=== PATIENT | female | born 1940 | race Caucasian/White ===

== ENCOUNTER → 2017-11-19 10:21 | Outpatient (CLI) | payer MEDICARE, SELFPAY ==
--- NOTE | 2017-11-19 10:32 | RAD_ITS ---
STUDY: X-RAY - RIGHT SHOULDER REASON FOR EXAM: Female, 76 years old. Shoulder pain, replacement in 2016 TECHNIQUE: 4 view(s) of the shoulder. COMPARISON: Previous study of 08/05/2015 FINDINGS: Status post total right shoulder replacement changes are seen with implants appearing in good position. There is no evidence of implant loosening or new associated fracture or dislocation. There is a small amount of heterotopic bone medial to the proximal right humeral shaft. The bones are osteopenic. There are several old healed right rib fractures. The right lung apex is clear. RAD/Shoulder min 2 Views IMPRESSION: Status post total right shoulder replacement changes noted with implants appearing in good position. There is no evidence of implant loosening or new associated fracture or dislocation. There is a small amount of heterotopic bone medial to the proximal right humeral shaft. There is generalized osteopenia. There are old healed fractures of several right ribs. Electronically Signed: Sal Corral MD at 22:36 EST , Service support ,
== END ==
PROVIDERS: Family Provider Family Medicine; PCP Family Medicine; Visit Provider Family Medicine
DX: M25.511 Pain in right shoulder (principal)
CPT/HCPCS: 73030

== ENCOUNTER 2018-04-08 15:17 | Emergency (ER) | payer MEDICARE, SELFPAY ==
[2018-04-08 15:19] VITALS: BP 230/95; PULSE 87; RESP 16; TEMP 36.8; O2SAT 100; BMI 35.9
--- NOTE | 2018-04-08 15:32 | EKG12_ITS ---
Test Reason : WEAKNESS Blood Pressure : / mmHG Vent. Rate : 082 BPM Atrial Rate : 082 BPM P-R Int : 242 ms QRS Dur : 084 ms QT Int : 390 ms P-R-T Axes : 048 -21 133 degrees QTc Int : 455 ms Sinus rhythm with 1st degree A-V block T wave abnormality, consider lateral ischemia Abnormal ECG Confirmed by ABE RASMUSSEN, PEDRO ([id number]), book or script editor KEVIN STALLWORTH ([id number]) on 04/10/2018 2:29:11 PM Referred By: KATE Confirmed By:PEDRO FISH MD
--- NOTE | 2018-04-08 15:35 | RAD_ITS ---
STUDY: X-RAY CHEST REASON FOR EXAM: Female, 77 years old. Weakness, history of hypertension TECHNIQUE: Single AP portable view of the chest. COMPARISON: Prior study of 07/21/2015 FINDINGS: The lungs are clear and expanded. There is no demonstrated pleural abnormality. There is moderate cardiac enlargement. Normal mediastinum and sridhar. Normal visualized pulmonary arteries. There are calcified plaques of the aortic arch. There are diffuse degenerative changes of the visualized thoracic spine. 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 There is no demonstrated abnormality of the visualized soft tissue structures of the upper abdomen. RAD/Chest 1 View (Portable) IMPRESSION: 1. Moderate cardiomegaly. 2. Calcified plaques of the aortic arch. 3. Degenerative changes of the thoracic spine. 4. Status post total right shoulder replacement changes. This is new in the interval. Electronically Signed: Sal Corral MD at 16:49 EDT , Service support ,
--- NOTE | 2018-04-08 15:36 | ED.DCSUM_ITS ---
- ER Visit Summary Date of Service: 04/08/18 Chief Complaint: Weakness History of Present Illness: The patient is a 77 F who states that she came into town today the patient bills when she got home she felt that she was generally weak. No focal deficits. No chest pain. No shortness of breath. She states that she took her blood pressure and it was 222/96 and her blood sugars was 178. She does not know her medications. When we called over to her doctor's office they agreed to send him to us and they did state that she called in there today may mention she has not taken her medicines for several days. When I asked the patient about this she states now she has been taking them. When I asked again she states while she missed 2 doses. When I ask again she states she has missed several days worth. That was because she states she was very stressed. Physical Examination: 230/95 heart rate of 91 respirations are 16 pulse ox is 100% on room air patient is afebrile Gen: Well-nourished well-developed Head: Normocephalic atraumatic Eyes: Perrl EOMI ENT: TMs clear no rhinorrhea moist mucous membranes Neck: Supple no lymphadenopathy no JVD nontender CVS: Regular rate rhythm no murmurs normal S1-S2 Respiratory: No distress clear to auscultation bilaterally chest nontender Abdomen: Soft nontender nondistended normal bowel sounds no masses Back: Nontender Extremity: Nontender no edema Skin: Normal color no rash Neuro: alert orientated ?3 CN II-XII intact normal strength sensation reflexes gait cerebellar Psych: Normal affect normal mood Test Results: EKG sinus with first-degree block at a rate of 82. Hemoglobin 11.8. Creatinine 1.43. Troponin negative. Chest x-ray negative. Emergency Department Course and Treatment: I did not give the patient any additional blood pressure medications. Blood pressures down to 173/69 at 1500 hrs. The patient was ambulated and did well.. She will be discharged home. She was encouraged to be compliant with her medications Impression: 1. Hypertensive urgency secondary to medical noncompliance This note was generated with [employer] software. It may contain incorrect words, spelling, and punctuation that were not noted in review of the chart prior to signing ED Disposition - Plan for ED Patient: Disposition: Home or Assisted Living Chief Complaint: Weakness Instructions: Discharge Instructions: Taking Blood Pressure Medications Referrals: Moshe Matos MD [Primary Care Provider] - 3-5 Days if not improving
[2018-04-08 15:42] LABS: Absolute Lymphocyte Count 2.18 X10^3/ul (0.83-4.51); Basophil# 0.02 X10^3/uL; Basophil% 0.3 % (0-1); Eosinophil# 0.22 X10^3/uL; Eosinophils% 3.2 % (0-5); Hematocrit 37.1 % (37-47); Hemoglobin 11.8 g/dl (12.0-15.0); Lymphocyte # 2.18 X10^3/ul (4.0); Mean Corp Hgb Conc 31.8 g/gl (32-36); Mean Corpuscular Hgb 30.1 pg (27.0-32.0); Mean Corpuscular Volume 94.6 fL (81-99); Mean Platelet Vol. 11.3 fl (6.2-12.0); Monocyte# 0.39 X10^3/uL; Monocyte% 5.7 % (0-10); Neutrophil # 3.97 X10^3/uL (2.7-7.7); Neutrophil % 58.4 % (47-70); Platelet Count 172 K/mm3 (150-450); RBC Distribution Width CV 13.6 % (11.6-14.6); RBC Distribution Width SD 45.4 fl (35.1-43.9); Red Blood Count 3.92 M/mm3 (4.2-5.4); White Blood Count 6.8 K/mm3 (4.4-11.0)
[2018-04-08 15:44] LABS: POSITIVE COUNT NO; POSITIVE DIFFERENTIAL NO; POSITIVE MORPHOLOGY NO
[2018-04-08 16:03] LABS: Anion Gap 8 (5-15); BUN 15 mg/dL (7-18); BUN/Creat Ratio 10.5 RATIO (10-20); Calcium,Total 9.2 mg/dL (8.5-10.1); Chloride 108 mmol/L (98-107); Creatinine, Serum 1.43 mg/dL (0.55-1.02); EST Glomerular Filtration Rate 38 mL/min (>60); Est Glom Filt Rate - Afr Amer 46 mL/min (>60); Estimated Creatinine Clearance 30.12 ml/min; Glucose 119 mg/dL (74-106); Potassium 3.8 mmol/L (3.5-5.1); Sodium Level 143 mmol/L (136-145)
[2018-04-08 16:15] LABS: Mucous, Urine 0 SEEN /hpf (<or=2+); Red Blood Cells-Urine 0 SEEN /hpf (0-5)
[2018-04-08 16:33] LABS: Color, Urine Yellow (Yellow); Glucose, Dipstick Normal (Normal); Ketone-Dipstick Negative (Negative); Leukocyte Esterase-Dipstick 25 /ul (Negative); Nitrite-Dipstick Negative (Negative); Occult Blood-Urine 25 /ul (Negative); Protein-Dipstick 100 mg/dl (Negative); Urine Bilirubin Dipstick Negative (Negative); Urine Clarity Clear (Clear); Urine Urobilinogen 1 mg/dl (Normal)
[2018-04-08 16:42] LABS: Squamous Epithelial Cells - UA 5-10 SEEN /hpf (5-10); White Blood Cells 0-5 SEEN /hpf (0-5)
[2018-04-08 16:43] LABS: Bacteria 3+ /hpf (None Seen)
[2018-04-08 16:51] VITALS: BP 173/74; PULSE 80; RESP 15; O2SAT 100
[2018-04-08 18:01] VITALS: BP 175/71; PULSE 83; RESP 18; O2SAT 99
== END 2018-04-08 18:02 | disposition home or self-care (01) ==
PROVIDERS: Emergency Provider Emergency Medicine; Family Provider Family Medicine; PCP Family Medicine
DX: I16.0 Hypertensive urgency (principal); Z91.19 Patient's noncompliance with other medical treatment and regimen; E11.9 Type 2 diabetes mellitus without complications; E78.00 Pure hypercholesterolemia, unspecified; K21.9 Gastro-esophageal reflux disease without esophagitis; Z72.0 Tobacco use
CPT/HCPCS: 71045; 80048; 81001; 84484; 85025; 93005; 99285; A4216

== ENCOUNTER 2018-06-29 14:58 | Emergency (ER) | payer MEDICARE, SELFPAY ==
[2018-06-29 14:59] VITALS: BP 197/101; PULSE 87; RESP 18; TEMP 36.4; O2SAT 99; BMI 25.8
[2018-06-29 15:13] VITALS: BP 188/82; PULSE 80; RESP 14; O2SAT 98
--- NOTE | 2018-06-29 15:24 | ED.VISSUMM ---
- ER Visit Summary Date of Service: 06/29/18 Chief Complaint: High blood pressure History of Present Illness: The patient is a 77 F presenting with high blood pressure. Patient states she has a bracelet monitor that read elevated blood pressure. She called EMS. They checked her blood pressure and it was systolic of 200. They advised her to come to the emergency department. She is completely asymptomatic. She denies headache, chest pain, dizziness, blurred vision. She states she feels well. She states her blood sugar has also been running high. She checked it today and it was 160. Physical Examination: Vitals are stable. Blood pressure 188/82. patient is afebrile. Alert no acute distress. HEENT exam is unremarkable. Neck is supple. Lungs are clear and equal bilaterally. Heart is regular rate and rhythm. Abdomen is soft nontender nondistended. Extremities are unremarkable. Skin is warm and dry. No focal neurologic deficit. Remainder of exam is unremarkable. Emergency Department Course and Treatment: BGT is 164. Repeat blood pressure without treatment is 164/80. She remains asymptomatic in the emergency department. Patient is advised to follow-up with her primary care physician this week. She is advised to return to ED if she has any worsening complaints. Disposition: Discharge home Impression: Hypertension, established This note was generated with [employer] dictation software. It may contain incorrect words, spelling, and punctuation that were not noted in review of the chart prior to signing ED Disposition - Plan for ED Patient: Chief Complaint: Hypertension Instructions: ED HTN Established Referrals: Moshe Matos MD [Primary Care Provider] -
--- NOTE | 2018-06-29 15:27 | ED.DEP ---
ED Disposition - Plan for ED Patient: Chief Complaint: Hypertension Instructions: ED HTN Established Referrals: Moshe Matos MD [Primary Care Provider] -
[2018-06-29 15:38] VITALS: BP 164/80; PULSE 82; RESP 14; O2SAT 96
[2018-06-29 15:46] LABS: Bedside Glucose 164 mg/dL (70-110)
[2018-06-29 15:59] VITALS: BP 160/80; PULSE 80; RESP 14; O2SAT 98
== END 2018-06-29 16:00 | disposition home or self-care (01) ==
PROVIDERS: Emergency Provider Emergency Medicine; Family Provider Family Medicine; PCP Family Medicine
DX: I10 Essential (primary) hypertension (principal); E11.9 Type 2 diabetes mellitus without complications; E78.00 Pure hypercholesterolemia, unspecified; K21.9 Gastro-esophageal reflux disease without esophagitis; Z72.0 Tobacco use
CPT/HCPCS: 82962; 99283

== ENCOUNTER → 2018-09-02 11:28 | Outpatient (CLI) | payer MEDICARE, SELFPAY ==
[2018-09-02 15:55] LABS: Absolute Lymphocyte Count 2.17 X10^3/ul (0.83-4.51); Absolute Neutrophil Count 4.5 X10^3/uL (2.0-7.7); Basophil# 0.03 X10^3/uL; Basophil% 0.4 % (0-1); Eosinophil# 0.22 X10^3/uL; Hematocrit 36.5 % (37-47); Hemoglobin 11.4 g/dl (12.0-15.0); Lymphocyte # 2.17 X10^3/ul (4.0); Lymphocyte % 29.8 % (19-41); Mean Corp Hgb Conc 31.2 g/gl (32-36); Mean Corpuscular Hgb 29.4 pg (27.0-32.0); Mean Corpuscular Volume 94.1 fL (81-99); Mean Platelet Vol. 12.6 fl (6.2-12.0); Monocyte# 0.37 X10^3/uL; Monocyte% 5.1 % (0-10); Neutrophil # 4.47 X10^3/uL (2.7-7.7); Neutrophil % 61.3 % (47-70); Platelet Count 183 K/mm3 (150-450); RBC Distribution Width CV 14.4 % (11.6-14.6); RBC Distribution Width SD 47.3 fl (35.1-43.9); Red Blood Count 3.88 M/mm3 (4.2-5.4); White Blood Count 7.3 K/mm3 (4.4-11.0)
[2018-09-02 16:01] LABS: POSITIVE COUNT NO; POSITIVE DIFFERENTIAL NO; POSITIVE MORPHOLOGY NO
[2018-09-02 16:09] LABS: Iron 43 ug/dL (50-170)
--- OUTSIDE RECORDS SUMMARY | 2018-10-15 03:10 | XMS RPT_ITS ---
:1940 External Reference #:[id number] Author Organization OH[facility] Care Team Providers Name Role Phone KORI ANDERSON Referring Unavailable MARY JACOB (PT) Attending Unavailable MOSHE MATOS Referring Unavailable MARY JACOB (PT) Attending Unavailable MOSHE MATOS Referring Unavailable MARY JACOB (PT) Attending Unavailable MOSHE MATOS Referring Unavailable MARY JACOB (PT) Attending Unavailable MOSHE MATOS Referring Unavailable MARY JACOB (PT) Attending Unavailable MOSHE MATOS Referring Unavailable MOSHE MATOS Referring Unavailable MARY JACOB (PT) Attending Unavailable MOSHE MATOS Referring Unavailable Moshe Matos Attending Unavailable Moshe Matos Referring Unavailable Moshe Matos Primary Care Unavailable Moshe Matos Attending Unavailable Moshe Matos Primary Care Unavailable Moshe Matos Primary Care Unavailable Merna Bravo Attending Unavailable Moshe Matos Primary Care Unavailable Wang Mccoy Attending Unavailable Moshe Matos Attending Unavailable Moshe Matos Referring Unavailable Moshe Matos Primary Care Unavailable PROBLEMS PROBLEMS DATE TYPE CONDITION / CODE ATTENDING STATUS SOURCE 09/19/2018 Unknown D64.9 - Anemia, Moshe Matos Active [place] unspecified / Community D64.9(ICD-10) Hospital Repository 09/19/2018 Unknown R03.0 - Elevated [place], Active [place] blood-pressure Merna [facility], without Hospital diagnosis of Repository hypertension / R03.0(ICD-10) 09/19/2018 Unknown R53.1 - Weakness / [place] Active [place] R53.1(ICD-10) [facility] Repository 09/19/2018 Unknown M25.511 - Pain in Moshe Matos Active [place] right shoulder / Community M25.511(ICD-10) Hospital Repository 10/11/2017 Active Pleurodynia / NA Active [facility] R07.81(ICD-10) [facility] PROCEDURES PROCEDURES No Procedure Records FoundRESULTS RESULTS CBC W/DIFF, AUTOMATED Collected: 09/02/2018 Status: F Source: [place] 11:29 AM [facility] HOSPITAL REPOSITORY TYPE CODE TESTS RESULT OUT OF RANGE REFERENCE UNITS LAB L100.1000 4.4-11.0 K/mm3 Normal WBC 7.3 LAB L100.1200 4.2-5.4 M/mm3 Low RBC 3.88 LAB L100.1300 12.0-15.0 g/dl Low HGB 11.4 LAB L100.1400 37-47 % Low HCT 36.5 LAB L100.1500 81-99 fL Normal MCV 94.1 LAB L100.1600 27.0-32.0 pg Normal MCH 29.4 LAB L100.1700 32-36 g/gl Low MCHC 31.2 LAB L100.1810 11.6-14.6 % Normal RDW CV 14.4 LAB L100.1820 35.1-43.9 fl High RDW SD 47.3 LAB L100.1900 150-450 K/mm3 Normal PLT 183 LAB L100.2000 6.2-12.0 fl High MPV 12.6 LAB L100.2100 47-70 % Normal NEUT% 61.3 LAB L100.2200 19-41 % Normal LY% 29.8 LAB L100.2300 0-10 % Normal MONO% 5.1 LAB L100.2400 0-5 % Normal EO% 3.0 LAB L100.2500 0-1 % Normal BASO% 0.4 LAB L100.2550 0.0-0.9 % Normal IM GRAN % 0.400 Result Comment: IG% - Immature Granulocytes (promyelocytes, myelocytes and metamyelocytes) > 1% indicates that a LEFT SHIFT is Present. LAB L100.2620 2.0-7.7 X10 3/uL Normal Absolute Neut 4.5 LAB L100.2720 0.83-4.51 X10 3/ul Normal Absolute Lymph 2.17 Performed By: #### L100.0100 #### [facility] [address] [facility] [place], [address] IRON Collected: 09/02/2018 Status: F Source: [place] 11:29 AM [facility] REPOSITORY TYPE CODE TESTS RESULT OUT OF RANGE REFERENCE UNITS LAB L503.6150 50-170 ug/dL Low IRON 43 Performed By: #### L503.6150 #### [facility] [address] [facility] [place], [address] EMERGENCY DEPARTMENT Observed: 06/29/2018 Status: F Source: [place] SUMMARY 4:31 PM [facility] REPOSITORY [facility] Medical Records Department [address] [place] [address] Emergency Department Summary 06/29/18 1524 MR#: [id number] Acct: [id number] Name: DALIA MUSE Rep #: [id number] : 1940 77 From: Merna Bravo MD PCP: Moshe Matos MD Status: DEP ER - ER Visit Summary Date of Service: 06/29/18 Chief Complaint: High blood pressure History of Present Illness: The patient is a 77 F presenting with high blood pressure. Patient states she has a bracelet monitor that read elevated blood pressure. She called EMS. They checked her blood pressure and it was systolic of 200. They advised her to come to the emergency department. She is completely asymptomatic. She denies headache, chest pain, dizziness, blurred vision. She states she feels well. She states her blood sugar has also been running high. She checked it today and it was 160. Physical Examination: Vitals are stable. Blood pressure 188/82. patient is afebrile. Alert no acute distress. HEENT exam is unremarkable. Neck is supple. Lungs are clear and equal bilaterally. Heart is regular rate and rhythm. Abdomen is soft nontender nondistended. Extremities are unremarkable. Skin is warm and dry. No focal neurologic deficit. Remainder of exam is unremarkable. Emergency Department Course and Treatment: BGT is 164. Repeat blood pressure without treatment is 164/80. She remains asymptomatic in the emergency department. Patient is advised to follow-up with her primary care physician this week. She is advised to return to ED if she has any worsening complaints. Disposition: Discharge home Impression: Hypertension, established This note was generated with [employer] dictation software. It may contain incorrect words, spelling, and punctuation that were not noted in review of the chart prior to signing ED Disposition - Plan for ED Patient: Chief Complaint: Hypertension Instructions: ED HTN Established Referrals: Moshe Matos MD [Primary Care Provider] - What to do if you have Problems For any increased pain, shortness of breath, bleeding, nausea or vomiting, chest pain, or any unexpected problems, contact your Primary Care Provider. Call [facility] ([phone]) or report to the closest Emergency Room. Call 911 if necessary. 06/29/18 1631 <Electronically signed by Merna Bravo MD> Date Merna Bravo MD Cosigner Signature (If Indicated): Date CC: Moshe Matos MD BEDSIDE GLUCOSE Collected: 06/29/2018 Status: F Source: [place] 3:36 PM [facility] REPOSITORY TYPE CODE TESTS RESULT OUT OF REFERENCE UNITS RANGE LAB L501.080 70-110 mg/dL High BEDSIDE GLU 164 Result Comment: MANAGEMENT OF PATIENT CARE PER NURSING PROTOCOL Performed By: #### L501.080 #### [facility] Point of Care [address] [place] [address] DISCHARGE INSTRUCTION Observed: 06/29/2018 Status: F Source: [place] 3:27 PM [facility] REPOSITORY [facility] Medical Records Department [address] [place] [address] Discharge Instruction 06/29/18 1527 MR#: [id number] Acct: [id number] Name: DALIA MUSE Rep #: [id number] : 1940 77 From: Merna Bravo MD PCP: Moshe Matos MD Status: PRE ER ED Disposition - Plan for ED Patient: Chief Complaint: Hypertension Instructions: ED HTN Established Referrals: Moshe Matos MD [Primary Care Provider] - What to do if you have Problems For any increased pain, shortness of breath, bleeding, nausea or vomiting, chest pain, or any unexpected problems, contact your Primary Care Provider. Call [facility] ([phone]) or report to the closest Emergency Room. Call 911 if necessary. 06/29/18 1527 <Electronically signed by Merna Bravo MD> Date Merna Bravo MD Cosigner Signature (If Indicated): Date CC: Moshe Matos MD 12 LEAD ELECTROCARDIOGRAM Observed: 04/10/2018 Status: F Source: [place] 2:29 PM [facility] REPOSITORY [facility] Cardiovascular Services [address] [place] [address] 12 Lead EKG 04/08/18 1552 MR#: [id number] Acct: [id number] Name: DALIA MUSE Rep #: [id number] : 1940 77 From: Johnny Michelle MD Attending Dr: Status: DEP ER Ordering Dr: Wang Mccoy DO Date: 04/08/18 Location: ED Sex: F C Admitted: Test Reason : WEAKNESS Blood Pressure : / mmHG Vent. Rate : 082 BPM Atrial Rate : 082 BPM P-R Int : 242 ms QRS Dur : 084 ms QT Int : 390 ms P-R-T Axes : 048 -21 133 degrees QTc Int : 455 ms Sinus rhythm with 1st degree A-V block T wave abnormality, consider lateral ischemia Abnormal ECG Confirmed by ABE MD, JOHNNY ([id number]), editorial cartoonist KEVIN STALLWORTH ([id number]) on 04/10/2018 2:29:11 PM Referred By: KATE Confirmed By:JOHNNY MICHELLE MD 04/10/18 1429 Date Johnny Michelle MD CC: Wang Mccoy DO; Moshe Matos MD Signed EMERGENCY DEPARTMENT Observed: 04/08/2018 Status: F Source: [place] SUMMARY 11:36 PM [facility] REPOSITORY [facility] Medical Records Department [address] [place] [address] Emergency Department Summary 04/08/18 1532 MR#: [id number] Acct: [id number] Name: DALIA MUSE Rep #: [id number] : 1940 77 From: Wang Mccoy DO PCP: Moshe Matos MD Status: DEP ER - ER Visit Summary Date of Service: 04/08/18 Chief Complaint: Weakness History of Present Illness: The patient is a 77 F who states that she came into town today the patient bills when she got home she felt that she was generally weak. No focal deficits. No chest pain. No shortness of breath. She states that she took her blood pressure and it was 222/96 and her blood sugars was 178. She does not know her medications. When we called over to her doctor's office they agreed to send him to us and they did state that she called in there today may mention she has not taken her medicines for several days. When I asked the patient about this she states now she has been taking them. When I asked again she states while she missed 2 doses. When I ask again she states she has missed several days worth. That was because she states she was very stressed. Physical Examination: 230/95 heart rate of 91 respirations are 16 pulse ox is 100% on room air patient is afebrile Gen: Well-nourished well-developed Head: Normocephalic atraumatic Eyes: Perrl EOMI ENT: TMs clear no rhinorrhea moist mucous membranes Neck: Supple no lymphadenopathy no JVD nontender CVS: Regular rate rhythm no murmurs normal S1-S2 Respiratory: No distress clear to auscultation bilaterally chest nontender Abdomen: Soft nontender nondistended normal bowel sounds no masses Back: Nontender Extremity: Nontender no edema Skin: Normal color no rash Neuro: alert orientated 3 CN II-XII intact normal strength sensation reflexes gait cerebellar Psych: Normal affect normal mood Test Results: EKG sinus with first-degree block at a rate of 82. Hemoglobin 11.8. Creatinine 1.43. Troponin negative. Chest x-ray negative. Emergency Department Course and Treatment: I did not give the patient any additional blood pressure medications. Blood pressures down to 173/69 at 1500 hrs. The patient was ambulated and did well.. She will be discharged home. She was encouraged to be compliant with her medications Impression: 1. Hypertensive urgency secondary to medical noncompliance This note was generated with [employer] software. It may contain incorrect words, spelling, and punctuation that were not noted in review of the chart prior to signing ED Disposition - Plan for ED Patient: Disposition: Home or Assisted Living Chief Complaint: Weakness Instructions: Discharge Instructions: Taking Blood Pressure Medications Referrals: Moshe Matos MD [Primary Care Provider] - 3-5 Days if not improving What to do if you have Problems For any increased pain, shortness of breath, bleeding, nausea or vomiting, chest pain, or any unexpected problems, contact your Primary Care Provider. Call [facility] ([phone]) or report to the closest Emergency Room. Call 911 if necessary. 04/08/18 2336 <Electronically signed by Wang Mccoy DO> Date Wang Mccoy DO Cosigner Signature (If Indicated): Date CC: Moshe Matos MD URINALYSIS, COMPLETE Collected: 04/08/2018 Status: F Source: [place] 3:55 PM [facility] REPOSITORY Order Comment: Order Date: 04/08/18 Has pt arrived? Y How was Urine Obtained? CLEAN CATCH TYPE CODE TESTS RESULT OUT OF RANGE REFERENCE UNITS LAB L400.3000 Yellow COLOR Normal Yellow LAB L400.3050 Clear Normal CLARITY Clear LAB L400.3200 Normal mg/dl Normal GLUCOSE, UR Normal LAB L400.3300 Negative mg/dL Normal BILIRUBIN URINE Negative LAB L400.3400 Negative mg/dl Normal KETONE UR Negative LAB L400.3465 1.002-1.030 Normal SP.GR. DIPSTX 1.020 LAB L400.3550 5.0 - 8.0 pH UR Normal 6.0 LAB L400.3600 Negative mg/dl High PROT DIPSTX 100 LAB L400.3700 Normal mg/dl High 1 UROBILI LAB L400.3750 Negative Normal NITRITE UR Negative LAB L400.3780 Negative /ul High 25 OCCULT BLOOD-UR LAB L400.3800 Negative /ul High LEUK 25 ESTERASE LAB L400.4050 0-5 /hpf WBC Normal 0-5 SEEN LAB L400.4100 0-5 /hpf 0 Normal RBC-UA SEEN LAB L400.4150 5-10 /hpf SQUAM Normal EPI 5-10 SEEN LAB L400.4300 None Seen /hpf 3+ Normal BACTERIA LAB L400.4350 <or=2+ /hpf 0 Normal MUCUS, URINE SEEN Performed By: #### L400.0001 #### [facility] [address] [facility] [place], [address] CHEST 1 VIEW Observed: 04/08/2018 Status: F Source: [place] (PORTABLE) 3:33 PM [facility] REPOSITORY [facility] Imaging Services [address] [place] [address] Chest 1 View (Portable) MR#: [id number] Acct: [id number] Name: DALIA MUSE Rep #: [id number] : 1940 F 77 From: Sal Corral MD PCP: Moshe Matos MD Status: REG ER Study: Chest 1 View (Portable) Date of Exam: 04/08/18 Exam# [id number] Ordering Dr: Wang Mccoy DO STUDY: X-RAY CHEST REASON FOR EXAM: Female, 77 years old. Weakness, history of hypertension TECHNIQUE: Single AP portable view of the chest. COMPARISON: Prior study of 07/21/2015 FINDINGS: The lungs are clear and expanded. There is no demonstrated pleural abnormality. There is moderate cardiac enlargement. Normal mediastinum and sridhar. Normal visualized pulmonary arteries. There are calcified plaques of the aortic arch. There are diffuse degenerative changes of the visualized thoracic spine. 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 There is no demonstrated abnormality of the visualized soft tissue structures of the upper abdomen. RAD/Chest 1 View (Portable) IMPRESSION: 1. Moderate cardiomegaly. 2. Calcified plaques of the aortic arch. 3. Degenerative changes of the thoracic spine. 4. Status post total right shoulder replacement changes. This is new in the interval. Electronically Signed: Sal Corral MD at 16:49 EDT , Service support , CC: Wang Mccoy DO; Moshe Matos MD Rn Invasive: Signed CBC W/DIFF, AUTOMATED Collected: 04/08/2018 Status: F Source: [place] 3:30 PM [facility] REPOSITORY TYPE CODE TESTS RESULT OUT OF RANGE REFERENCE UNITS LAB L100.1000 4.4-11.0 K/mm3 Normal WBC 6.8 LAB L100.1200 4.2-5.4 M/mm3 Low RBC 3.92 LAB L100.1300 12.0-15.0 g/dl Low HGB 11.8 LAB L100.1400 37-47 % Normal HCT 37.1 LAB L100.1500 81-99 fL Normal MCV 94.6 LAB L100.1600 27.0-32.0 pg Normal MCH 30.1 LAB L100.1700 32-36 g/gl Low MCHC 31.8 LAB L100.1810 11.6-14.6 % Normal RDW CV 13.6 LAB L100.1820 35.1-43.9 fl High RDW SD 45.4 LAB L100.1900 150-450 K/mm3 Normal PLT 172 LAB L100.2000 6.2-12.0 fl Normal MPV 11.3 LAB L100.2100 47-70 % Normal NEUT% 58.4 LAB L100.2200 19-41 % Normal LY% 32.0 LAB L100.2300 0-10 % Normal MONO% 5.7 LAB L100.2400 0-5 % Normal EO% 3.2 LAB L100.2500 0-1 % Normal BASO% 0.3 LAB L100.2550 0.0-0.9 % Normal IM GRAN % 0.400 Result Comment: IG% - Immature Granulocytes (promyelocytes, myelocytes and metamyelocytes) > 1% indicates that a LEFT SHIFT is Present. LAB L100.2620 2.0-7.7 X10 3/uL Normal Absolute Neut 4.0 LAB L100.2720 0.83-4.51 X10 3/ul Normal Absolute Lymph 2.18 Performed By: #### L100.0100 #### [facility] [address] [place], [place], [address] BASIC METABOLIC Collected: 04/08/2018 Status: F Source: [place] PROFILE (BMP) 3:30 PM [facility] REPOSITORY TYPE CODE TESTS RESULT OUT OF RANGE REFERENCE UNITS LAB L501.0100 74-106 mg/dL High GLU 119 Result Comment: Fasting Glucose result from 100 to 125 mg/dL suggests IMPAIRED HOMEOSTASIS per A.D.A. criteria. Please note revised GLUCOSE reference range effective 2017. LAB L501.1000 7-18 mg/dL Normal BUN 15 LAB L501.1100 0.55-1.02 mg/dL High CREAT,SERUM 1.43 Result Comment: The validity of the calculated GFR AND GFRAA in patients over 70 years has not been determined. Clinical correlation is essential. LAB L501.1110 >60 mL/min Low EST GFR 38 Result Comment: Non- GFR Calc LAB L501.1115 >60 mL/min Low EST GFR - AA 46 Result Comment: GFR Calc LAB L501.1255 ml/min Normal Estimated CRCL 30.12 LAB L501.1300 10-20 RATIO Normal BUN/CRE 10.5 LAB L501.2200 8.5-10 mg/dL Normal .1 CA 9.2 LAB L501.5300 136-14 mmol/L Normal 5 NA 143 LAB L501.5600 3.5-5. mmol/L Normal 1 K 3.8 LAB L501.5900 98-107 mmol/L High CL 108 LAB L501.6100 21.0-3 mmol/L Normal 2.0 CO2 27.0 LAB L501.6200 5-15 Normal GAP 8 Performed By: #### L500.2500, L501.4010 #### [facility] [address] [place], [address] TROPONIN-I Collected: 04/08/2018 Status: F Source: [place] 3:30 PM [facility] REPOSITORY TYPE CODE TESTS RESULT OUT OF RANGE REFERENCE UNITS LAB L501.4010 <0.045 ng/mL Normal 0.016 TROPONIN-I Result Comment: TROPONIN-I EXPECTED VALUES <0.045 Negative 0.045 - 0.590 Consistent with Cardiac Damage > OR = 0.600 Critical Value Not every elevated troponin is indicative of DC. These values should be used with clinical judgement in examining the patient's clinical picture for diagnosis. To establish a diagnosis of DC versus myocardial injury, there must be a demonstrated rise and/or fall in the troponin values, in addition to ischemic symptoms, EKG changes, new regional wall motion abnormality, and/or angiographical evidence. PLEASE NOTE: REFERENCE RANGES EDITED 18 Performed By: #### L500.2500, L501.4010 #### [facility] [address] [facility] [place], [address] PROGRESS Observed: 12/25/2017 Status: COMPLETED Source: [place] 11:32 AM [facility] REPOSITORY HNO ID: [id number] Author: Mary (Pt) Nidia Service: (none) Author Type: Physical Therapist Type: Progress Notes Filed: 12/25/2017 11:37 AM Note Text: Episode Visit Count: 6 Therapist That Will Oversee The Plan Of Care: Mary Jacob PT Start of Care Date: 11/26/17 Onset Date: 06/26/17 Plan of Care Certification Date: 11/26/17 REHABILITATION AND SPORTS THERAPY PHYSICAL THERAPY DISCONTINUANCE OF CARE PLAN OF CARE UPDATE: Assessment: Dalia Muse is discontinued from Physical Therapy services due to goal achievement and maximal benefit.. Patient was seen for 6 visits from Start of Care Date: 11/26/17 to 12/25/2017 and treatment included: Therapeutic exercise, Manual therapy, Patient/Family/Caregiver Education and General conditioning. Patient is pleased with her progress and ready to continue with her HEP independently. Goals updated on 12/24/2017. Emmet in home exercise program.--MET Patient will decrease pain rating by 2 points to meet minimal clinical important difference for numeric pain rating scale.(Goal 6/10)--MET Patient will increase active ROM of R shoulder to equal L shoulder to allow pt to to achieve neutral postural alignment and improved performance of ADLs.--Not MET Patient will increase strength of R shoulder to equal L to 5/5 to allow for return to prior functional status.--Partially MET except for R shoulder ER Perform reaching overhead without pain.--MET Demonstrate improvement on functional score: Patient will improve his/her AM-PAC T-scale score by 4 points to indicate a Minimal Clinical Important Difference. (Goal=55.89)--MET G CODE REPORTING Based on clinical assessment and the score on the AM-PAC Scale Daily Activity Adapted Score Assessment Tool, the G code and corresponding severity modifiers are documented below. Evaluation: 11/26/2017 Current Status: Carrying, Moving and Handling Objects: G8984 20-39% impaired Goal Status: Carrying, Moving and Handling Objects: G8985 20-39% Impaired Discharge: 12/24/2017 Goal Status: Carrying, Moving and Handling Objects: G8985 20-39% impaired Discharge: Carrying, Moving and Handling Objects: G8986 20-39% impaired SUBJECTIVE: Hasn't been having any R shoulder pain. Dressing and reaching into cupboards is going terriffic. Pain Score: 0/10 Pain Location: Shoulder - Right Post Treatment Pain Score: 0/10 OBJECTIVE MEASURES WITH LEVEL OF FUNCTION: UE AROM R Shoulder Flex: 120 Degrees (no pain) R Shoulder ABduction: 125 Degrees (no pain) R Shoulder Internal Rotation: (to buttock) R Shoulder External Rotation: (base of head) L Shoulder Flex: 140 Degrees L Shoulder ABduction: 125 Degrees L Shoulder Internal Rotation: (T9) L Shoulder External Rotation: (C7) UE Strength R Shoulder Flexion: 5/5 R Shoulder Abduction (C5): 5/5 R Shoulder Internal Rotation: 5/5 R Shoulder External Rotation: 4/5 R Elbow Flexion (C6): 5/5 R Elbow Extension (C7): 5/5 TREATMENT: Therapeutic Exercise: 1: Ciera for R shoulder flexion and abduction x15, 5 sec holds, each 2: Pendulums holding 1 # weight clockwise/counterclockwise, forward, and side to side. x10 each 3: Writting patient's first and last name in cursive x4 5: Standing Rows 3x15 with orange band 6: Green ball on door 2x15 cw/ccw 7: Standing wand R shoulder extension 2x10 8: Standing wand R shoulder ER 2x10 9: Standing wand R shoudler ABDuction 2x10 12: Seated Cervical Rotation 1x10, 3 sec holds 13: Seated upper trap stretch 10 sec holds, 3x, B holding onto base of chair to increase stretch 14: Levator Stretch 10 sec holds, 3x, B 15: *Seated cervical neck rolls x3, B 16: Educated patient to continue perform her HEP daily. Patient verbalized understanding . Skilled Intervention: Patient was educated in proper exercise technique and purpose for exercises. Skilled judgment was provided in selection of appropriate interventions. Patient education as noted. Billing: [facility]: Therapeutic Exercise (26541): 1:1 time: 38 minutes (3 units: 38-52 mins) Total time: 38 minutes Mary Jacob PT CNTHERAPY Observed: 12/24/2017 Status: COMPLETED Source: [place] 1:15 PM [facility] REPOSITORY OT/PT/Speech Visit (PTWS) DALIA MUSE ([id number]) 1940 F Date Time Provider Department 12/24/17 1:15 PM MARY JACOBPT) PTWS Date Time Provider Department Center 12/24/2017 1:15 PM [id number], DIANA (PT)[facility] [place] Reason for Visit: PT Progress Note [1596] PT Discharge [752] Reason For Visit History Recorded Primary Visit Diagnosis:Right shoulder pain, unspecified chronicity [M25.511] Allergies As of Date: 12/24/2017 Noted Allergy Reaction PENICILLINS 09/17/2008 Comments: swelling, nausea Date Reviewed: 12/29/2016 Reviewed by: Elin West - Fully Assessed Prescriptions as of 12/24/2017 Sig: FERROUS SULFATE 325 MG (65 MG* Take 325 mg by mouth twice da* BLOOD-GLUCOSE METER KIT 1 Each as needed (Test 1-2 ti* BLOOD SUGAR DIAGNOSTIC STRIPS Test blood sugar(s) 1- 2 times* METFORMIN 1,000 MG TABLET Take 1 tablet by mouth twice * RANITIDINE 300 MG TABLET Take 1 tablet by mouth daily * SIMVASTATIN 40 MG TABLET Take 1 tablet by mouth daily * NICOTINE 21 MG/24 HR DAILY TR* Apply 1 Patch as directed marcellus* LISINOPRIL 20 MG-HYDROCHLOROT* Take 1 tablet by mouth once d* GLIMEPIRIDE 4 MG TABLET Take 1 tablet by mouth twice * ASPIRIN 81 MG TABLET Take 1 tablet by mouth once d* Progress Notes: Mary Jacob PT 12/25/2017 11:37 AM Signed Episode Visit Count: 6 Therapist That Will Oversee The Plan Of Care: Mary Jacob PT Start of Care Date: 11/26/17 Onset Date: 06/26/17 Plan of Care Certification Date: 11/26/17 REHABILITATION AND SPORTS THERAPY PHYSICAL THERAPY DISCONTINUANCE OF CARE PLAN OF CARE UPDATE: Assessment: Dalia Muse is discontinued from Physical Therapy services due to goal achievement and maximal benefit.. Patient was seen for 6 visits from Start of Care Date: 11/26/17 to 12/25/2017 and treatment included: Therapeutic exercise, Manual therapy, Patient/Family/Caregiver Education and General conditioning. Patient is pleased with her progress and ready to continue with her HEP independently. Goals updated on 12/24/2017. Emmet in home exercise program.--MET Patient will decrease pain rating by 2 points to meet minimal clinical important difference for numeric pain rating scale.(Goal 6/10)--MET Patient will increase active ROM of R shoulder to equal L shoulder to allow pt to to achieve neutral postural alignment and improved performance of ADLs.--Not MET Patient will increase strength of R shoulder to equal L to 5/5 to allow for return to prior functional status.--Partially MET except for R shoulder ER Perform reaching overhead without pain.--MET Demonstrate improvement on functional score: Patient will improve his/her AM-PAC T-scale score by 4 points to indicate a Minimal Clinical Important Difference. (Goal=55.89)--MET G CODE REPORTING Based on clinical assessment and the score on the AM-PAC Scale Daily Activity Adapted Score Assessment Tool, the G code and corresponding severity modifiers are documented below. Evaluation: 11/26/2017 Current Status: Carrying, Moving and Handling Objects: G8984 20-39% impaired Goal Status: Carrying, Moving and Handling Objects: G8985 20-39% Impaired Discharge: 12/24/2017 Goal Status: Carrying, Moving and Handling Objects: G8985 20-39% impaired Discharge: Carrying, Moving and Handling Objects: G8986 20-39% impaired SUBJECTIVE: Hasn't been having any R shoulder pain. Dressing and reaching into cupboards is going terriffic. Pain Score: 0/10 Pain Location: Shoulder - Right Post Treatment Pain Score: 0/10 OBJECTIVE MEASURES WITH LEVEL OF FUNCTION: UE AROM R Shoulder Flex: 120 Degrees (no pain) R Shoulder ABduction: 125 Degrees (no pain) R Shoulder Internal Rotation: (to buttock) R Shoulder External Rotation: (base of head) L Shoulder Flex: 140 Degrees L Shoulder ABduction: 125 Degrees L Shoulder Internal Rotation: (T9) L Shoulder External Rotation: (C7) UE Strength R Shoulder Flexion: 5/5 R Shoulder Abduction (C5): 5/5 R Shoulder Internal Rotation: 5/5 R Shoulder External Rotation: 4/5 R Elbow Flexion (C6): 5/5 R Elbow Extension (C7): 5/5 TREATMENT: Therapeutic Exercise: 1: Ciera for R shoulder flexion and abduction x15, 5 sec holds, each 2: Pendulums holding 1 # weight clockwise/counterclockwise, forward, and side to side. x10 each 3: Writting patient's first and last name in cursive x4 5: Standing Rows 3x15 with orange band 6: Green ball on door 2x15 cw/ccw 7: Standing wand R shoulder extension 2x10 8: Standing wand R shoulder ER 2x10 9: Standing wand R shoudler ABDuction 2x10 12: Seated Cervical Rotation 1x10, 3 sec holds 13: Seated upper trap stretch 10 sec holds, 3x, B holding onto base of chair to increase stretch 14: Levator Stretch 10 sec holds, 3x, B 15: *Seated cervical neck rolls x3, B 16: Educated patient to continue perform her HEP daily. Patient verbalized understanding . Skilled Intervention: Patient was educated in proper exercise technique and purpose for exercises. Skilled judgment was provided in selection of appropriate interventions. Patient education as noted. Billing: [facility]: Therapeutic Exercise ([id number]): 1:1 time: 38 minutes (3 units: 38-52 mins) Total time: 38 minutes Mary Jacob PT PROGRESS Observed: 12/17/2017 Status: COMPLETED Source: [place] 9:45 AM [facility] REPOSITORY HNO ID: [id number] Author: Mary (Pt) Nidia Service: (none) Author Type: Physical Therapist Type: Progress Notes Filed: 12/19/2017 7:23 AM Note Text: Episode Visit Count: 5 Therapist That Will Oversee The Plan Of Care: Mary Jacob PT Start of Care Date: 11/26/17 Onset Date: 06/26/17 Plan of Care Certification Date: 11/26/17 [facility]ABIL[facility]ATION [facility]ORTS [facility]ERAPY PHYSICAL THERAPY TREATMENT NOTE ASSESSMENT: Dalia Muse demonstrated improvements in being able to put her coat on as demonstrated at the end of today's PT visit. Patient always feels relaxed and like she has better movement in shoulder after exercise and manual therapy. The patient will continue to benefit from continued skilled physical therapy for R shoulder ROM, strengthening, and manual therapy. PLAN FOR NEXT VISIT: Con't with warm lotion to R shoulder/upper trap soft tissue massage. Cervical neck rolls. POC update 12/24/17. SUBJECTIVE: The new exercises worked out real good. No new changes in using R arm. Sometimes when goes to bed gets a dull pain on the side of her L arm pit and side of breast. Started about a week ago. She is thinking about joining [employer]. (Encourage patient to look into a membership) Pain Score: 0/10 (No pain currently but can go to a 5/10) Pain Location: Shoulder - Right Description: Dull Frequency: Intermittent OBJECTIVE MEASURES WITH LEVEL OF FUNCTION: Standing ROM exercises with wand patient required postural cues and cues to ensure correct performance of exercises. TREATMENT: Therapeutic Exercise: 1: Ciera for R shoulder flexion and abduction x15, 5 sec holds, each 2: Pendulums holding 1 # weight clockwise/counterclockwise, forward, and side to side. x10 each 3: Writting patient's first and last name in cursive x4 (cues to write name as high as able to) 5: Standing Rows 2x15 with orange band 6: Green ball on door 2x15 cw/ccw (cues to roll ball at start of exercise set) 7: Standing wand R shoulder extension 2x10 (cues to prevent trunk from moving) 8: Standing wand R shoulder ER 2x10 (cues to keep elbow against side) 9: Standing wand R shoudler ABDuction 2x10 11: Seated on rolling stool R shoulder flexion stretch 10 sec holds, 6x 12: Seated Cervical Rotation 1x10, 3 sec holds 13: Seated upper trap stretch 10 sec holds, 3x, B holding onto base of chair to increase stretch 14: *Levator Stretch 10 sec holds, 3x, B Skilled Intervention: Patient was educated in proper exercise technique and purpose for exercises. Reviewed and educated patient on additions/changes for home exercise program as above (*) Provided written instruction for home exercise program to facilitate proper performance and compliance. Correct performance of therapeutic exercises was facilitated with verbal, visual and tactile cuing. Patient education as noted. Manual Therapy: 2: Soft tissue massage to R shoulder and R upper trap with warm lotion for 8 minutes Skilled Intervention: Manual skills to improve joint mobility, ROM, and decrease pain. Utilized anatomy knowledge of the therapist, and assessment of patient's response to intervention. Billing: [facility]: Therapeutic Exercise ([id number]): 1:1 time: 37 minutes (2 units: 23-37 mins) Manual Therapy ([id number]): 1:1 time: 8 minutes (1 unit: 8-22 mins) Total time: 45 minutes Mary Jacob PT CNTHERAPY Observed: 12/17/2017 Status: COMPLETED Source: [place] 9:15 AM [facility] REPOSITORY OT/PT/Speech Visit (PTWS) DALIA MUSE ([id number]) 1940 F Date Time Provider Department 12/17/17 9:15 AM MARY JACOB (PT) PTWS Date Time Provider Department Center 12/17/2017 9:15 AM [id number], DIANA (PT)PTWS [facility] Reason for Visit: Physical Therapy [503] Primary Visit Diagnosis:Right shoulder pain, unspecified chronicity [M25.511] Allergies As of Date: 12/17/2017 Noted Allergy Reaction PENICILLINS 09/17/2008 Comments: swelling, nausea Date Reviewed: 12/29/2016 Reviewed by: Elin West - Fully Assessed Prescriptions as of 12/17/2017 Sig: FERROUS SULFATE 325 MG (65 MG* Take 325 mg by mouth twice da* BLOOD-GLUCOSE METER KIT 1 Each as needed (Test 1-2 ti* BLOOD SUGAR DIAGNOSTIC STRIPS Test blood sugar(s) 1- 2 times* METFORMIN 1,000 MG TABLET Take 1 tablet by mouth twice * RANITIDINE 300 MG TABLET Take 1 tablet by mouth daily * SIMVASTATIN 40 MG TABLET Take 1 tablet by mouth daily * NICOTINE 21 MG/24 HR DAILY TR* Apply 1 Patch as directed marcellus* LISINOPRIL 20 MG-HYDROCHLOROT* Take 1 tablet by mouth once d* GLIMEPIRIDE 4 MG TABLET Take 1 tablet by mouth twice * ASPIRIN 81 MG TABLET Take 1 tablet by mouth once d* Progress Notes: Mary Jacob PT 12/19/2017 7:23 AM Signed Episode Visit Count: 5 Therapist That Will Oversee The Plan Of Care: Mary Jacob PT Start of Care Date: 11/26/17 Onset Date: 06/26/17 Plan of Care Certification Date: 11/26/17 REHABILITATION AND SPORTS THERAPY PHYSICAL THERAPY TREATMENT NOTE ASSESSMENT: Dalia Muse demonstrated improvements in being able to put her coat on as demonstrated at the end of today's PT visit. Patient always feels relaxed and like she has better movement in shoulder after exercise and manual therapy. The patient will continue to benefit from continued skilled physical therapy for R shoulder ROM, strengthening, and manual therapy. PLAN FOR NEXT VISIT: Con't with warm lotion to R shoulder/upper trap soft tissue massage. Cervical neck rolls. POC update 12/24/17. SUBJECTIVE: The new exercises worked out real good. No new changes in using R arm. Sometimes when goes to bed gets a dull pain on the side of her L arm pit and side of breast. Started about a week ago. She is thinking about joining [employer]. (Encourage patient to look into a membership) Pain Score: 0/10 (No pain currently but can go to a 5/10) Pain Location: Shoulder - Right Description: Dull Frequency: Intermittent OBJECTIVE MEASURES WITH LEVEL OF FUNCTION: Standing ROM exercises with wand patient required postural cues and cues to ensure correct performance of exercises. TREATMENT: Therapeutic Exercise: 1: Ciera for R shoulder flexion and abduction x15, 5 sec holds, each 2: Pendulums holding 1 # weight clockwise/counterclockwise, forward, and side to side. x10 each 3: Writting patient's first and last name in cursive x4 (cues to write name as high as able to) 5: Standing Rows 2x15 with orange band 6: Green ball on door 2x15 cw/ccw (cues to roll ball at start of exercise set) 7: Standing wand R shoulder extension 2x10 (cues to prevent trunk from moving) 8: Standing wand R shoulder ER 2x10 (cues to keep elbow against side) 9: Standing wand R shoudler ABDuction 2x10 11: Seated on rolling stool R shoulder flexion stretch 10 sec holds, 6x 12: Seated Cervical Rotation 1x10, 3 sec holds 13: Seated upper trap stretch 10 sec holds, 3x, B holding onto base of chair to increase stretch 14: *Levator Stretch 10 sec holds, 3x, B Skilled Intervention: Patient was educated in proper exercise technique and purpose for exercises. Reviewed and educated patient on additions/changes for home exercise program as above (*) Provided written instruction for home exercise program to facilitate proper performance and compliance. Correct performance of therapeutic exercises was facilitated with verbal, visual and tactile cuing. Patient education as noted. Manual Therapy: 2: Soft tissue massage to R shoulder and R upper trap with warm lotion for 8 minutes Skilled Intervention: Manual skills to improve joint mobility, ROM, and decrease pain. Utilized anatomy knowledge of the therapist, and assessment of patient's response to intervention. Billing: [facility]: Therapeutic Exercise ([id number]): 1:1 time: 37 minutes (2 units: 23-37 mins) Manual Therapy ([id number]): 1:1 time: 8 minutes (1 unit: 8-22 mins) Total time: 45 minutes Mary Jacob PT PROGRESS Observed: 2017 Status: COMPLETED Source: [place] 12:19 PM [facility] REPOSITORY HNO ID: [id number] Author: Mary (López) Nidia Service: (none) Author Type: Physical Therapist Type: Progress Notes Filed: 2017 12:23 PM Note Text: Episode Visit Count: 4 Therapist That Will Oversee The Plan Of Care: Mary Jacob PT Start of Care Date: 11/26/17 Onset Date: 06/26/17 Plan of Care Certification Date: 11/26/17 REHABILITATION AND SPORTS THERAPY PHYSICAL THERAPY TREATMENT NOTE ASSESSMENT: Dalia Muse demonstrated improvements in pain intensity after exercise and manual therapy today. The patient will continue to benefit from continued skilled physical therapy for ROM, scapular strengthening, and manual therapy. PLAN FOR NEXT VISIT: Con't with warm lotion to R shoulder/upper trap soft tissue massage. Cervical neck rolls and levator stretch to try SUBJECTIVE: R shoulder feels like it is coming along better. Pain Score: 7/10 Pain Location: Shoulder - Right Description: Dull Frequency: Intermittent Post Treatment Pain Score: 5/10 Post Treatment Pain Description: Dull OBJECTIVE MEASURES WITH LEVEL OF FUNCTION: Palpation: R upper trap tightness decreased after soft tissue massage TREATMENT: Therapeutic Exercise: 1: Ciera for R shoulder flexion and abduction x15, 5 sec holds, each 2: Pendulums holding 1 # weight clockwise/counterclockwise, forward, and side to side. x10 each 3: Writting patient's first and last name in cursive x4 (cues to reach as high as she is able to write name) 5: Standing Rows 2x12 with orange band 6: Green ball on door 2x12 cw/ccw 7: Standing wand R shoulder extension 2x10 8: Standing wand R shoulde ER 2x10 (cues for form) 9: Standing wand R shoudler ABDuction 2x10 11: *Seated on rolling stool R shoulder flexion stretch 10 sec holds, 6x 12: *Seated Cervical Rotation 1x10, 3 sec holds 13: *Seated upper trap stretch 10 sec holds, 3x, B holding onto base of chair to increase stretch Skilled Intervention: Patient was educated in proper exercise technique and purpose for exercises. Reviewed and educated patient on additions/changes for home exercise program as above (*) Skilled judgment was provided in selection of appropriate interventions. Provided written instruction for home exercise program to facilitate proper performance and compliance. Correct performance of therapeutic exercises was facilitated with verbal, visual and tactile cuing. Manual Therapy: 2: Soft tissue massage to R shoulder and R upper trap with warm lotion Skilled Intervention: Manual skills to improve joint mobility, ROM, and decrease pain. Utilized anatomy knowledge of the therapist, and assessment of patient's response to intervention. Billing: [facility]: Therapeutic Exercise ([id number]): 1:1 time: 30 minutes (2 units: 23-37 mins) Manual Therapy ([id number]): 1:1 time: 11 minutes (1 unit: 8-22 mins) Total time: 41 minutes Mary Jacob PT CNTHERAPY Observed: 12/13/2017 Status: COMPLETED Source: [place] 12:30 PM [facility] REPOSITORY OT/PT/Speech Visit (PTWS) DALIA MUSE ([id number]) 1940 F Date Time Provider Department 12/13/17 12:30 PM MARY JACOB (PT) PTWS Date Time Provider Department Center 12/13/2017 12:30 PM [id number], DIANA (PT)PTWS [facility] Reason for Visit: Physical Therapy [503] Primary Visit Diagnosis:Right shoulder pain, unspecified chronicity [M25.511] Allergies As of Date: 12/13/2017 Noted Allergy Reaction PENICILLINS 09/17/2008 Comments: swelling, nausea Date Reviewed: 12/29/2016 Reviewed by: Elin West - Fully Assessed Prescriptions as of 12/13/2017 Sig: FERROUS SULFATE 325 MG (65 MG* Take 325 mg by mouth twice da* BLOOD-GLUCOSE METER KIT 1 Each as needed (Test 1-2 ti* BLOOD SUGAR DIAGNOSTIC STRIPS Test blood sugar(s) 1- 2 times* METFORMIN 1,000 MG TABLET Take 1 tablet by mouth twice * RANITIDINE 300 MG TABLET Take 1 tablet by mouth daily * SIMVASTATIN 40 MG TABLET Take 1 tablet by mouth daily * NICOTINE 21 MG/24 HR DAILY TR* Apply 1 Patch as directed marcellus* LISINOPRIL 20 MG-HYDROCHLOROT* Take 1 tablet by mouth once d* GLIMEPIRIDE 4 MG TABLET Take 1 tablet by mouth twice * ASPIRIN 81 MG TABLET Take 1 tablet by mouth once d* Progress Notes: Mary Jacob PT 2017 12:23 PM Signed Episode Visit Count: 4 Therapist That Will Oversee The Plan Of Care: Mary Jacob PT Start of Care Date: 11/26/17 Onset Date: 06/26/17 Plan of Care Certification Date: 11/26/17 REHABILITATION AND SPORTS THERAPY PHYSICAL THERAPY TREATMENT NOTE ASSESSMENT: Dalia Muse demonstrated improvements in pain intensity after exercise and manual therapy today. The patient will continue to benefit from continued skilled physical therapy for ROM, scapular strengthening, and manual therapy. PLAN FOR NEXT VISIT: Con't with warm lotion to R shoulder/upper trap soft tissue massage. Cervical neck rolls and levator stretch to try SUBJECTIVE: R shoulder feels like it is coming along better. Pain Score: 7/10 Pain Location: Shoulder - Right Description: Dull Frequency: Intermittent Post Treatment Pain Score: 5/10 Post Treatment Pain Description: Dull OBJECTIVE MEASURES WITH LEVEL OF FUNCTION: Palpation: R upper trap tightness decreased after soft tissue massage TREATMENT: Therapeutic Exercise: 1: Ciera for R shoulder flexion and abduction x15, 5 sec holds, each 2: Pendulums holding 1 # weight clockwise/counterclockwise, forward, and side to side. x10 each 3: Writting patient's first and last name in cursive x4 (cues to reach as high as she is able to write name) 5: Standing Rows 2x12 with orange band 6: Green ball on door 2x12 cw/ccw 7: Standing wand R shoulder extension 2x10 8: Standing wand R shoulde ER 2x10 (cues for form) 9: Standing wand R shoudler ABDuction 2x10 11: *Seated on rolling stool R shoulder flexion stretch 10 sec holds, 6x 12: *Seated Cervical Rotation 1x10, 3 sec holds 13: *Seated upper trap stretch 10 sec holds, 3x, B holding onto base of chair to increase stretch Skilled Intervention: Patient was educated in proper exercise technique and purpose for exercises. Reviewed and educated patient on additions/changes for home exercise program as above (*) Skilled judgment was provided in selection of appropriate interventions. Provided written instruction for home exercise program to facilitate proper performance and compliance. Correct performance of therapeutic exercises was facilitated with verbal, visual and tactile cuing. Manual Therapy: 2: Soft tissue massage to R shoulder and R upper trap with warm lotion Skilled Intervention: Manual skills to improve joint mobility, ROM, and decrease pain. Utilized anatomy knowledge of the therapist, and assessment of patient's response to intervention. Billing: [facility]: Therapeutic Exercise ([id number]): 1:1 time: 30 minutes (2 units: 23-37 mins) Manual Therapy ([id number]): 1:1 time: 11 minutes (1 unit: 8-22 mins) Total time: 41 minutes Mary Jacob PT PROGRESS Observed: 12/09/2017 Status: COMPLETED Source: [place] 2:03 PM [facility] REPOSITORY HNO ID: [id number] Author: Mary Jacob Service: (none) Author Type: Physical Therapist Type: Progress Notes Filed: 12/09/2017 2:06 PM Note Text: Episode Visit Count: 3 Therapist That Will Oversee The Plan Of Care: Mary Jacob PT Start of Care Date: 11/26/17 Onset Date: 06/26/17 Plan of Care Certification Date: 11/26/17 REHABILITATION AND SPORTS THERAPY PHYSICAL THERAPY TREATMENT NOTE ASSESSMENT: Dalia Muse demonstrated improvements in frequency of R shoulder pain going from constant to intermittent. She liked the soft tissue massage and reported less pain at the end of today's session. The patient will continue to benefit from continued skilled physical therapy for ther ex and manual to help improve R shoulder pain. PLAN FOR NEXT VISIT: Add warm lotion to R shoulder/upper trap soft tissue massage. Cervical Exercises SUBJECTIVE: Feels like having less pain in R shoulder. Pain is intermittent vs constant. Reported that holding cane for pendulums worked better. No problems attaching therband to door knoob for row exercise. Pain Score: 8/10 Pain Location: Shoulder - Right Description: Dull Frequency: Intermittent Post Treatment Pain Score: 6/10 Post Treatment Pain Description: Dull OBJECTIVE MEASURES WITH LEVEL OF FUNCTION: Cuing throughout session required to help patient maintain good posture TREATMENT: Therapeutic Exercise: 1: Ciera for R shoulder flexion and abduction x15, 5 sec holds 2: Pendulums clockwise/counterclockwise, forward, and side to side. x10 each (cues needed for set up) 3: Writting patient's first and last name in cursive x4 5: Standing Rows 2x10 with orange band 6: Wash cloth on door x10 cw/ccw 7: *Standing wand R shoulder extension 2x10 (cues for form and to slow down.) 8: *Standing wand R shoulde ER 2x10 (cues for form and to slow down.) 9: *Standing wand R shoudler ABDuction 2x10 (cues for form and to slow down.) 10: Recumbent Stepper Seat 11, Arms 4, level 0, 3 minutes--stopped d/t patient reporting her shoulders were getting tired Skilled Intervention: Patient was educated in proper exercise technique and purpose for exercises. Reviewed and educated patient on additions/changes for home exercise program as above (*) Provided written instruction for home exercise program to facilitate proper performance and compliance. Correct performance of therapeutic exercises was facilitated with verbal, visual and tactile cuing. Manual Therapy: 1: R shoulder flexion, abduction, and ER 1x10 each 2: Soft tissue massage to R shoulder and R upper trap Skilled Intervention: Manual skills to improve joint mobility, ROM, and decrease pain. Utilized anatomy knowledge of the therapist, and assessment of patient's response to intervention. Billing: [facility]: Therapeutic Exercise ([id number]): 1:1 time: 25 minutes (2 units: 23-37 mins) Manual Therapy ([id number]): 1:1 time: 15 minutes (1 unit: 8-22 mins) Total time: 40 minutes Mary Jacob PT CNTHERAPY Observed: 12/09/2017 Status: COMPLETED Source: [place] 1:00 PM [facility] REPOSITORY OT/PT/Speech Visit (PTWS) DALIA MUSE ([id number]) 1940 F Date Time Provider Department 12/09/17 1:00 PM MARY JACOB (PT) PTWS Date Time Provider Department Center 12/09/2017 1:00 PM [id number], DIANA (PT)PTWS [facility] Reason for Visit: Physical Therapy [503] Primary Visit Diagnosis:Right shoulder pain, unspecified chronicity [M25.511] Allergies As of Date: 12/09/2017 Noted Allergy Reaction PENICILLINS 09/17/2008 Comments: swelling, nausea Date Reviewed: 12/29/2016 Reviewed by: Elin West - Fully Assessed Prescriptions as of 12/09/2017 Sig: FERROUS SULFATE 325 MG (65 MG* Take 325 mg by mouth twice da* BLOOD-GLUCOSE METER KIT 1 Each as needed (Test 1-2 ti* BLOOD SUGAR DIAGNOSTIC STRIPS Test blood sugar(s) 1- 2 times* METFORMIN 1,000 MG TABLET Take 1 tablet by mouth twice * RANITIDINE 300 MG TABLET Take 1 tablet by mouth daily * SIMVASTATIN 40 MG TABLET Take 1 tablet by mouth daily * NICOTINE 21 MG/24 HR DAILY TR* Apply 1 Patch as directed marcellus* LISINOPRIL 20 MG-HYDROCHLOROT* Take 1 tablet by mouth once d* GLIMEPIRIDE 4 MG TABLET Take 1 tablet by mouth twice * ASPIRIN 81 MG TABLET Take 1 tablet by mouth once d* Progress Notes: Mary Jacob PT 12/09/2017 2:06 PM Signed Episode Visit Count: 3 Therapist That Will Oversee The Plan Of Care: Mary Jacob PT Start of Care Date: 11/26/17 Onset Date: 06/26/17 Plan of Care Certification Date: 11/26/17 REHABILITATION AND SPORTS THERAPY PHYSICAL THERAPY TREATMENT NOTE ASSESSMENT: Dalia Muse demonstrated improvements in frequency of R shoulder pain going from constant to intermittent. She liked the soft tissue massage and reported less pain at the end of today's session. The patient will continue to benefit from continued skilled physical therapy for ther ex and manual to help improve R shoulder pain. PLAN FOR NEXT VISIT: Add warm lotion to R shoulder/upper trap soft tissue massage. Cervical Exercises SUBJECTIVE: Feels like having less pain in R shoulder. Pain is intermittent vs constant. Reported that holding cane for pendulums worked better. No problems attaching therband to door knoob for row exercise. Pain Score: 8/10 Pain Location: Shoulder - Right Description: Dull Frequency: Intermittent Post Treatment Pain Score: 6/10 Post Treatment Pain Description: Dull OBJECTIVE MEASURES WITH LEVEL OF FUNCTION: Cuing throughout session required to help patient maintain good posture TREATMENT: Therapeutic Exercise: 1: Ciera for R shoulder flexion and abduction x15, 5 sec holds 2: Pendulums clockwise/counterclockwise, forward, and side to side. x10 each (cues needed for set up) 3: Writting patient's first and last name in cursive x4 5: Standing Rows 2x10 with orange band 6: Wash cloth on door x10 cw/ccw 7: *Standing wand R shoulder extension 2x10 (cues for form and to slow down.) 8: *Standing wand R shoulde ER 2x10 (cues for form and to slow down.) 9: *Standing wand R shoudler ABDuction 2x10 (cues for form and to slow down.) 10: Recumbent Stepper Seat 11, Arms 4, level 0, 3 minutes--stopped d/t patient reporting her shoulders were getting tired Skilled Intervention: Patient was educated in proper exercise technique and purpose for exercises. Reviewed and educated patient on additions/changes for home exercise program as above (*) Provided written instruction for home exercise program to facilitate proper performance and compliance. Correct performance of therapeutic exercises was facilitated with verbal, visual and tactile cuing. Manual Therapy: 1: R shoulder flexion, abduction, and ER 1x10 each 2: Soft tissue massage to R shoulder and R upper trap Skilled Intervention: Manual skills to improve joint mobility, ROM, and decrease pain. Utilized anatomy knowledge of the therapist, and assessment of patient's response to intervention. Billing: [facility]: Therapeutic Exercise (64018): 1:1 time: 25 minutes (2 units: 23-37 mins) Manual Therapy (51727): 1:1 time: 15 minutes (1 unit: 8-22 mins) Total time: 40 minutes Mary Jacob PT PROGRESS Observed: 12/06/2017 Status: COMPLETED Source: [place] 9:14 AM [facility] REPOSITORY O ID: [id number] Author: Mary Stoll) Nidia Service: (none) Author Type: Physical Therapist Type: Progress Notes Filed: 12/06/2017 9:20 AM Note Text: Episode Visit Count: 2 Therapist That Will Oversee The Plan Of Care: Mary Jacob PT Start of Care Date: 11/26/17 Onset Date: 06/26/17 Plan of Care Certification Date: 11/26/17 REHABILITATION AND SPORTS THERAPY PHYSICAL THERAPY TREATMENT NOTE ASSESSMENT: Dalia Muse demonstrated need for maximum verbal and tactile cues for correct form for exercises today. Patient seemed to do better holding a 1 lb weight when perform the pendulum exercises. The patient will continue to benefit from continued skilled physical therapy for R shoulder ROM, strengthening, and manual. PLAN FOR NEXT VISIT: Recumbent Stepper to get arm movement warmed up. Manual to patient tolerance--maybe add soft tissue massage. Ultrasound to help with pain relief. Wand for ER and Extension. Cervical exercises. SUBJECTIVE: R shoulder feels about the same since last PT visit. Exercises going good. Pain Score: 8/10 Pain Location: Shoulder - Right Description: Dull;Throbbing Frequency: Continuous Post Treatment Pain Score: 7/10 Post Treatment Pain Description: Dull;Throbbing OBJECTIVE MEASURES WITH LEVEL OF FUNCTION: UE PROM R Shoulder Flex: 144 Degrees R Shoulder Horizontal ADduction: 144 Degrees TREATMENT: Therapeutic Exercise: 1: Ciera for R shoulder flexion and abduction x10, 5 sec holds (cues to hold for 5 seconds.) 2: *Pendulums clockwise/counterclockwise, forward, and side to side. x10 each (Added 1 lb weight, which worked better for patient) 3: *Writting patient's first and last name in cursive x3 4: Standing rows x10 (cues provided to patient to learn form) 5: *Standing Rows 2x10 with orange band (Instructed how to put on door knob) 6: 2# Ball on wall 2x10, each side (Max cues and tactile cues for form.) Skilled Intervention: Patient was educated in proper exercise technique and purpose for exercises. Reviewed and educated patient on additions/changes for home exercise program as above (*) Skilled judgment was provided in selection of appropriate interventions. Provided written instruction for home exercise program to facilitate proper performance and compliance. Correct performance of therapeutic exercises was facilitated with verbal, visual and tactile cuing. Manual Therapy: 1: R shoulder flexion, abduction, and ER 1x10 each (2 pillows + wedge under head) Skilled Intervention: Manual skills to improve joint mobility, ROM, and decrease pain. Utilized anatomy knowledge of the therapist, and assessment of patient's response to intervention. Billing: [facility]: Therapeutic Exercise (16105): 1:1 time: 33 minutes (2 units: 23-37 mins) Manual Therapy (63500): 1:1 time: 15 minutes (1 unit: 8-22 mins) Total time: 48 minutes Mary Jacob PT CNTHERAPY Observed: 12/03/2017 Status: COMPLETED Source: [place] 9:15 AM [facility] REPOSITORY OT/PT/Speech Visit (PTWS) DALIA MUSE ([id number]) 1940 F Date Time Provider Department 12/03/17 9:15 AM MARY JACOB (PT) PTWS Date Time Provider Department Center 12/03/2017 9:15 AM [id number], DIANA (PT)PTWS [facility] Reason for Visit: Physical Therapy [503] Primary Visit Diagnosis:Right shoulder pain, unspecified chronicity [M25.511] Allergies As of Date: 12/03/2017 Noted Allergy Reaction PENICILLINS 09/17/2008 Comments: swelling, nausea Date Reviewed: 12/29/2016 Reviewed by: Elin West - Fully Assessed Prescriptions as of 12/03/2017 Sig: FERROUS SULFATE 325 MG (65 MG* Take 325 mg by mouth twice da* BLOOD-GLUCOSE METER KIT 1 Each as needed (Test 1-2 ti* BLOOD SUGAR DIAGNOSTIC STRIPS Test blood sugar(s) 1- 2 times* METFORMIN 1,000 MG TABLET Take 1 tablet by mouth twice * RANITIDINE 300 MG TABLET Take 1 tablet by mouth daily * SIMVASTATIN 40 MG TABLET Take 1 tablet by mouth daily * NICOTINE 21 MG/24 HR DAILY TR* Apply 1 Patch as directed marcellus* LISINOPRIL 20 MG-HYDROCHLOROT* Take 1 tablet by mouth once d* GLIMEPIRIDE 4 MG TABLET Take 1 tablet by mouth twice * ASPIRIN 81 MG TABLET Take 1 tablet by mouth once d* Progress Notes: Mary Jacob PT 12/06/2017 9:20 AM Signed Episode Visit Count: 2 Therapist That Will Oversee The Plan Of Care: Mary Jacob PT Start of Care Date: 11/26/17 Onset Date: 06/26/17 Plan of Care Certification Date: 11/26/17 REHABILITATION AND SPORTS THERAPY PHYSICAL THERAPY TREATMENT NOTE ASSESSMENT: Dalia Muse demonstrated need for maximum verbal and tactile cues for correct form for exercises today. Patient seemed to do better holding a 1 lb weight when perform the pendulum exercises. The patient will continue to benefit from continued skilled physical therapy for R shoulder ROM, strengthening, and manual. PLAN FOR NEXT VISIT: Recumbent Stepper to get arm movement warmed up. Manual to patient tolerance--maybe add soft tissue massage. Ultrasound to help with pain relief. Wand for ER and Extension. Cervical exercises. SUBJECTIVE: R shoulder feels about the same since last PT visit. Exercises going good. Pain Score: 8/10 Pain Location: Shoulder - Right Description: Dull;Throbbing Frequency: Continuous Post Treatment Pain Score: 7/10 Post Treatment Pain Description: Dull;Throbbing OBJECTIVE MEASURES WITH LEVEL OF FUNCTION: UE PROM R Shoulder Flex: 144 Degrees R Shoulder Horizontal ADduction: 144 Degrees TREATMENT: Therapeutic Exercise: 1: Ciera for R shoulder flexion and abduction x10, 5 sec holds (cues to hold for 5 seconds.) 2: *Pendulums clockwise/counterclockwise, forward, and side to side. x10 each (Added 1 lb weight, which worked better for patient) 3: *Writting patient's first and last name in cursive x3 4: Standing rows x10 (cues provided to patient to learn form) 5: *Standing Rows 2x10 with orange band (Instructed how to put on door knob) 6: 2# Ball on wall 2x10, each side (Max cues and tactile cues for form.) Skilled Intervention: Patient was educated in proper exercise technique and purpose for exercises. Reviewed and educated patient on additions/changes for home exercise program as above (*) Skilled judgment was provided in selection of appropriate interventions. Provided written instruction for home exercise program to facilitate proper performance and compliance. Correct performance of therapeutic exercises was facilitated with verbal, visual and tactile cuing. Manual Therapy: 1: R shoulder flexion, abduction, and ER 1x10 each (2 pillows + wedge under head) Skilled Intervention: Manual skills to improve joint mobility, ROM, and decrease pain. Utilized anatomy knowledge of the therapist, and assessment of patient's response to intervention. Billing: [facility]: Therapeutic Exercise (07108): 1:1 time: 33 minutes (2 units: 23-37 mins) Manual Therapy (31020): 1:1 time: 15 minutes (1 unit: 8-22 mins) Total time: 48 minutes Mary Jacob PT PROGRESS Observed: 11/27/2017 Status: COMPLETED Source: [place] 4:00 PM [facility] REPOSITORY HNO ID: [id number] Author: Mary (Pt) Nidia Service: (none) Author Type: Physical Therapist Type: Progress Notes Filed: 11/27/2017 4:28 PM Note Text: Episode Visit Count: 1 Therapist That Will Oversee The Plan Of Care: Mary Jacob PT Start of Care Date: 11/26/17 Onset Date: 06/26/17 Plan of Care Certification Date: 11/26/17 Patient Identified by Name and Date of : Yes REHABILITATION AND SPORTS THERAPY PHYSICAL THERAPY EVALUATION PLAN OF CARE: Assessment: Dalia Muse presents with the chief complaint of R shoulder pain. She presents with impairments of R shoulder ROM, impaired R shoulder strength, and reaching overhead. She may benefit from skilled therapy services to improve ROM and strength to allow her to perform ADLs without limitations. Prognosis: Good Good due to: good support system/ coping skills Goals for Episode of Care: created on 11/26/17 through 02/05/18 Emmet in home exercise program. Patient will decrease pain rating by 2 points to meet minimal clinical important difference for numeric pain rating scale. Patient will increase active ROM of R shoulder to equal L shoulder to allow pt to to achieve neutral postural alignment and improved performance of ADLs. Patient will increase strength of R shoulder to equal L to 5/5 to allow for return to prior functional status. Perform reaching overhead without pain. Demonstrate improvement on functional score: Patient will improve his/her AM-PAC T-scale score by 4 points to indicate a Minimal Clinical Important Difference. (Goal=55.89) G CODE REPORTING Based on clinical assessment and the score on the AM-PAC Scale Daily Activity Adapted Score Assessment Tool, the G code and corresponding severity modifiers are documented below. Evaluation: 11/26/2017 Current Status: Carrying, Moving and Handling Objects: G8984 20-39% impaired Goal Status: Carrying, Moving and Handling Objects: G8985 20-39% impaired Planned Interventions, Frequency, and Duration: Current Frequency: 2x/week Duration: 4 weeks Total Number of Visits Planned: 9 Patient to be see for Planned Treatment Interventions: Therapeutic exercise;Neuromuscular re-education;Therapeutic activities;Self- retirement management;Patient/Family/Caregiver Education;General Conditioning;Functional training;Manual therapy Patient demonstrates good understanding of plan of care and treatment. The above goals and plan of care were discussed and agreed upon by patient/family. SUBJECTIVE: Dalia Muse is a 76 year old female seen today for Started having shoulder pain about 5 months ago. No falls. Patient here to get therapy to help make her R shoulder feel better. Patient had a R shoulder replacement in 2016 Functional Limitations: reaching overhead Prior Level of Function: Independent without limitations Patient Goals: Help make R shoulder better Previous Treatment: Physical Therapy (after R shoulder replacement) Pain Score: 8/10 Pain Location: Shoulder - Right Description: Dull;Throbbing Frequency: Continuous (when raising arm up to shoulder height.) Post Treatment Pain Score: No Change OBJECTIVE MEASURES WITH LEVEL OF FUNCTION: Posture / Alignment Posture: Forward head;Rounded shoulders;Scoliosis UE Observations: R anterior shoudler tender to palpation UE AROM R Shoulder Flex: 120 Degrees (pain at end range) R Shoulder ABduction: 115 Degrees (pain at end range) R Shoulder Internal Rotation: (T9) R Shoulder External Rotation: (C7) L Shoulder Flex: 140 Degrees L Shoulder ABduction: 125 Degrees L Shoulder Internal Rotation: (to buttock) L Shoulder External Rotation: (base of head) UE Strength R Shoulder Flexion: 4/5 R Shoulder Abduction (C5): 4/5 R Shoulder Internal Rotation: 4/5 R Shoulder External Rotation: 4/5 R Elbow Flexion (C6): 4+/5 R Elbow Extension (C7): 4+/5 L Shoulder Flexion: 5/5 L Shoulder Abduction (C5): 5/5 L Shoulder Internal Rotation: 5/5 L Shoulder External Rotation: 5/5 L Elbow Flexion (C6): 5/5 L Elbow Extension (C7): 5/5 Education: Education Learning Preferences: Demonstration;Explanation;Performance;Printed Materials Barriers: None Learning/educational needs: Home exercise program;Plan of Care Education Provided: Yes, see treatment interventions for education provided Education Provided To: Patient Education Mode/Type: Demonstration;Explanation/Discussion;Literature/Printed Materials;Performance Response to Education/Teach Back: Requires Review/Additional Education TREATMENT: Evaluation Therapeutic Exercise: 1: *Ciera for R shoulder flexion and abduction x10, 2x a day (ciera issued for home use) 2: *Pendulums clockwise/counterclockwise, forward, and side to side. (Max cuing to move hips to create motion and not arm) Skilled Intervention: Patient was educated in proper exercise technique and purpose for exercises. Skilled judgment was provided in selection of appropriate interventions. Provided written instruction for home exercise program to facilitate proper performance and compliance. Correct performance of therapeutic exercises was facilitated with verbal, visual and tactile cuing. Billing: [facility]: Evaluation - Moderate Complexity (77135) Therapeutic Exercise (64722): 1:1 time: 15 minutes (1 unit: 8-22 mins) Total time: 40 minutes Mary Jacob PT CNTHERAPY Observed: 11/26/2017 Status: COMPLETED Source: [place] 2:45 PM [facility] REPOSITORY OT/PT/Speech Visit (PTWS) DALIA MUSE ([id number]) 1940 F Date Time Provider Department 11/26/17 2:45 PM MARY JACOB (PT) PTWS Date Time Provider Department Center 11/26/2017 2:45 PM [id number], DIANA (PT)PTWS [facility] Reason for Visit: PT Eval [747] Patient Education [91] Primary Visit Diagnosis:Right shoulder pain, unspecified chronicity [M25.511] Allergies As of Date: 11/26/2017 Noted Allergy Reaction PENICILLINS 09/17/2008 Comments: swelling, nausea Date Reviewed: 12/29/2016 Reviewed by: Elin West - Fully Assessed Prescriptions as of 11/26/2017 Sig: FERROUS SULFATE 325 MG (65 MG* Take 325 mg by mouth twice da* BLOOD-GLUCOSE METER KIT 1 Each as needed (Test 1-2 ti* BLOOD SUGAR DIAGNOSTIC STRIPS Test blood sugar(s) 1- 2 times* METFORMIN 1,000 MG TABLET Take 1 tablet by mouth twice * RANITIDINE 300 MG TABLET Take 1 tablet by mouth daily * SIMVASTATIN 40 MG TABLET Take 1 tablet by mouth daily * NICOTINE 21 MG/24 HR DAILY TR* Apply 1 Patch as directed marcellus* LISINOPRIL 20 MG-HYDROCHLOROT* Take 1 tablet by mouth once d* GLIMEPIRIDE 4 MG TABLET Take 1 tablet by mouth twice * ASPIRIN 81 MG TABLET Take 1 tablet by mouth once d* Progress Notes: Mary Jacob PT 11/27/2017 4:28 PM Signed Episode Visit Count: 1 Therapist That Will Oversee The Plan Of Care: Mary Jacob PT Start of Care Date: 11/26/17 Onset Date: 06/26/17 Plan of Care Certification Date: 11/26/17 Patient Identified by Name and Date of : Yes REHABILITATION AND SPORTS THERAPY PHYSICAL THERAPY EVALUATION PLAN OF CARE: Assessment: Dalia Muse presents with the chief complaint of R shoulder pain. She presents with impairments of R shoulder ROM, impaired R shoulder strength, and reaching overhead. She may benefit from skilled therapy services to improve ROM and strength to allow her to perform ADLs without limitations. Prognosis: Good Good due to: good support system/ coping skills Goals for Episode of Care: created on 11/26/17 through 02/05/18 Emmet in home exercise program. Patient will decrease pain rating by 2 points to meet minimal clinical important difference for numeric pain rating scale. Patient will increase active ROM of R shoulder to equal L shoulder to allow pt to to achieve neutral postural alignment and improved performance of ADLs. Patient will increase strength of R shoulder to equal L to 5/5 to allow for return to prior functional status. Perform reaching overhead without pain. Demonstrate improvement on functional score: Patient will improve his/her AM-PAC T-scale score by 4 points to indicate a Minimal Clinical Important Difference. (Goal=55.89) G CODE REPORTING Based on clinical assessment and the score on the AM-PAC Scale Daily Activity Adapted Score Assessment Tool, the G code and corresponding severity modifiers are documented below. Evaluation: 11/26/2017 Current Status: Carrying, Moving and Handling Objects: G8984 20-39% impaired Goal Status: Carrying, Moving and Handling Objects: G8985 20-39% impaired Planned Interventions, Frequency, and Duration: Current Frequency: 2x/week Duration: 4 weeks Total Number of Visits Planned: 9 Patient to be see for Planned Treatment Interventions: Therapeutic exercise;Neuromuscular re-education;Therapeutic activities;Self- retirement management;Patient/Family/Caregiver Education;General Conditioning;Functional training;Manual therapy Patient demonstrates good understanding of plan of care and treatment. The above goals and plan of care were discussed and agreed upon by patient/family. SUBJECTIVE: Dalia Muse is a 76 year old female seen today for Started having shoulder pain about 5 months ago. No falls. Patient here to get therapy to help make her R shoulder feel better. Patient had a R shoulder replacement in 2016 Functional Limitations: reaching overhead Prior Level of Function: Independent without limitations Patient Goals: Help make R shoulder better Previous Treatment: Physical Therapy (after R shoulder replacement) Pain Score: 8/10 Pain Location: Shoulder - Right Description: Dull;Throbbing Frequency: Continuous (when raising arm up to shoulder height.) Post Treatment Pain Score: No Change OBJECTIVE MEASURES WITH LEVEL OF FUNCTION: Posture / Alignment Posture: Forward head;Rounded shoulders;Scoliosis UE Observations: R anterior shoudler tender to palpation UE AROM R Shoulder Flex: 120 Degrees (pain at end range) R Shoulder ABduction: 115 Degrees (pain at end range) R Shoulder Internal Rotation: (T9) R Shoulder External Rotation: (C7) L Shoulder Flex: 140 Degrees L Shoulder ABduction: 125 Degrees L Shoulder Internal Rotation: (to buttock) L Shoulder External Rotation: (base of head) UE Strength R Shoulder Flexion: 4/5 R Shoulder Abduction (C5): 4/5 R Shoulder Internal Rotation: 4/5 R Shoulder External Rotation: 4/5 R Elbow Flexion (C6): 4+/5 R Elbow Extension (C7): 4+/5 L Shoulder Flexion: 5/5 L Shoulder Abduction (C5): 5/5 L Shoulder Internal Rotation: 5/5 L Shoulder External Rotation: 5/5 L Elbow Flexion (C6): 5/5 L Elbow Extension (C7): 5/5 Education: Education Learning Preferences: Demonstration;Explanation;Performance;Printed Materials Barriers: None Learning/educational needs: Home exercise program;Plan of Care Education Provided: Yes, see treatment interventions for education provided Education Provided To: Patient Education Mode/Type: Demonstration;Explanation/Discussion;Literature/Printed Materials;Performance Response to Education/Teach Back: Requires Review/Additional Education TREATMENT: Evaluation Therapeutic Exercise: 1: *Ciera for R shoulder flexion and abduction x10, 2x a day (ciera issued for home use) 2: *Pendulums clockwise/counterclockwise, forward, and side to side. (Max cuing to move hips to create motion and not arm) Skilled Intervention: Patient was educated in proper exercise technique and purpose for exercises. Skilled judgment was provided in selection of appropriate interventions. Provided written instruction for home exercise program to facilitate proper performance and compliance. Correct performance of therapeutic exercises was facilitated with verbal, visual and tactile cuing. Billing: [facility]: Evaluation - Moderate Complexity (08453) Therapeutic Exercise (37914): 1:1 time: 15 minutes (1 unit: 8-22 mins) Total time: 40 minutes Mary Jacob PT Letter Text SHOULDER MIN 2 VIEWS Observed: 11/19/2017 Status: F Source: [place] 10:33 AM [facility] REPOSITORY [facility] Imaging Services [address] [place] [id number] Shoulder min 2 Views MR#: [id number] Acct: [id number] Name: DALIA MUSE Rep #: [id number] : 1940 F 76 From: Sal Corral MD PCP: Moshe Matos Status: REG CLI Study: Shoulder min 2 Views Date of Exam: 11/19/17 Exam# [id number] Ordering Dr: Moshe Matos MD STUDY: X-RAY - RIGHT SHOULDER REASON FOR EXAM: Female, 76 years old. Shoulder pain, replacement in 2016 TECHNIQUE: 4 view(s) of the shoulder. COMPARISON: Previous study of 08/05/2015 FINDINGS: Status post total right shoulder replacement changes are seen with implants appearing in good position. There is no evidence of implant loosening or new associated fracture or dislocation. There is a small amount of heterotopic bone medial to the proximal right humeral shaft. The bones are osteopenic. There are several old healed right rib fractures. The right lung apex is clear. RAD/Shoulder min 2 Views IMPRESSION: Status post total right shoulder replacement changes noted with implants appearing in good position. There is no evidence of implant loosening or new associated fracture or dislocation. There is a small amount of heterotopic bone medial to the proximal right humeral shaft. There is generalized osteopenia. There are old healed fractures of several right ribs. Electronically Signed: Sal Corral MD at 22:36 EST , Service support , CC: Moshe Matos Rn Invasive: Signed XR RIB/CHST 3V AP Observed: 10/11/2017 Status: F Source: [place] RIB/OBL/CHST R 3:59 PM [facility] REPOSITORY * * *Final Report* * * DATE OF EXAM: Oct 11 2017 3:59PM WOX [id number] - XR RIB/CHST 3V AP RIB/OBL/CHST R / PROCEDURE REASON: rib pain * * * * Physician Interpretation * * * * EXAMINATION: FRONTAL CHEST X-RAY, AP AND OBLIQUE X-RAYS OF RIGHT RIBS History: rib pain M: XC2 Comparison: 11/16/2010 RESULT: 1. Lines, Tubes, and Devices: N/A 2. Lungs and Pleura: The lungs are clear. No pleural effusion or pneumothorax. 3. Cardiomediastinal silhouette: Mild cardiomegaly. 4. Bones: There are deformities of the right second, fourth and fifth ribs which appear to be subacute in nature. Postsurgical changes associated with the right shoulder joint. - - IMPRESSION: DEFORMITIES OF THE RIGHT SECOND, FOURTH AND FIFTH RIBS WHICH ARE THOUGHT TO MOST LIKELY RELATE TO SUBACUTE/REMOTE TRAUMATIC INJURY. NO ACUTE FRACTURE IS APPRECIATED. Rn Invasive: AMARJIT Transcribe Date/Time: Oct 12 2017 8:08A Dictated by : MICHELLE MORAN MD This examination was interpreted and the report reviewed and electronically signed by: MICHELLE MORAN MD on Oct 12 2017 8:12AM EST [id number] PROGRESS Observed: 10/11/2017 Status: COMPLETED Source: [place] 3:43 PM [facility] HNO ID: [id number] Author: Shanthi Valerio (Rt) William Reza Service: (none) Author Type: Business Analytics Manager Type: Progress Notes Filed: 10/11/2017 3:59 PM Note Text: Radiology Service Progress Note PATIENT NAME: Dalia Muse DATE OF SERVICE: October 11, 2017 TIME: 3:43 PM PATIENT IDENTITY VERIFICATION COMPLETED USING TWO (2) METHODS: Patient confirmed name verbally and Date of . PATIENT GENDER DATA: Female. status: : No status: NO. PATIENT RELEVANT IMPLANT DATA REVIEWED: Not Applicable RADIOLOGY DEPARTMENT: General X-ray: Exam(s) Completed: Rib X-Ray: Right PERIPHERAL IV DATA: Not applicable SIGNED BY: RT Nani October 11, 2017 3:43 PM ALLERGIES ALLERGIES DATE TYPE / CODE NAME / CODE REACTION SEVERITY SOURCE 06/29/2018 Drug Penicillins/[id number] Swelling Unknown Nikolay Allergy/416 0476(RXNORM) Community [id number]([facility] ED CT) Repository 09/17/2008 Drug PENICILLINS [facility] Class/84545 [address] ENCOUNTERS ENCOUNTERS ADMIT/DISCHARGE ACCOUNT ADMITTING ENCOUNTER LOCATION SOURCE NUMBER CLASS 09/02/[id number] [facility] ing:BFHLAB Repository 06/29/2018/06/29/20 [id number] Emergency [address] ing:ED Repository 04/08/2018/04/08/20 [id number] Emergency [address] ing:ED Repository 12/24/2017/12/26/19 [id number] Ambulatory [address] Repository 12/17/2017/12/20/19 [id number] Ambulatory [address] Repository 12/13/2017/02/14/20 [id number] Ambulatory [address] Repository 12/09/2017/12/19/19 [id number] Ambulatory [address] Repository 12/03/2017/12/07/19 [id number] Ambulatory [address] Repository 11/28/[id number] [facility] Hospital ing:PT Repository 11/26/2017/11/29/19 [id number] Ambulatory [address] Repository 11/19/2017 [id number] Ambulatory Nikolay [place] [facility] ing:MTRAD Repository 10/11/2017/10/11/19 [id number] Ambulatory [address] Repository 02/15/2017/02/20/20 [id number] Ambulatory [address] Repository PAYERS PAYERS ENCOUNTER GUARANTOR PAYER SUBSCRIBER SOURCE 09/02/2018 DALIA J Primary DALIA J [place] [id number] Insurance:HUMANA MCR COFFMANDOB: Community [employer] H[employer] IN [facility] [id number] [place] [address] 08/07/18Policy Number: Repository [id number]: (835) [id number] [phone] (HP) Date:7909-84-42UE [address] [place] [id number]: 09/02/2018 Secondary DALIA J Nikol[place] Insurance:MYCARE [facility]SC COFFMANDOB: Community *IN [place] [id number] Number: Repository [id number] Date:[id number] [facility] [address] [place] [id number]: 09/02/2018 Tertiary NOT GIVENUNK [place] Insurance:SELF PAY [facility] Number: Effective Repository Date:2018-09-02 06/29/2018 DALIA J Primary DALIA J Nikol[place] [id number] Insurance[facility] COFFMANDOB: Community [employer] HMO IN [place] [id number] [place] [address] 08/07/18Policy Number: Repository [id number]: (869) [id number] [phone] (HP) Date:6890-47-66RK [address] [place] [phone]: 06/29/2018 Secondary DALIA J [place] Insurance:MYCARE [facility] COFFMANDOB: Community *IN [place] [id number] Number: Repository [id number] Date:1947-77-18DYIV CLAIMS [address] [address]TK: 06/29/2018 Tertiary NOT GIVENUNK [place] Insurance:SELF PAY [facility] Effective Repository Date:2018-06-29 04/08/2018 DALIA J Primary Insurance:[facility] DALIA J [place] [id number] [facility] COFFMANDOB: Community [employer] [id number] Date:[id number] BOX Repository [address]Ese: [phone] [id number] [place] [phone] (YG) [address]UU: 04/08/2018 Secondary NOT GIVENUNK Nikol[place] Insurance:SELF PAY [facility] Number: Effective Repository Date:2018-04-08 11/28/2017 DALIA [id number] Primary DALIA Nikolay [employer] Insurance:HUMANA [facility] COFFMANDOB: Community [address] HMO -OUT OF [id number] Hospital [id number]: ([phone]) NETWORKPolicy Number: Repository [phone] () [id number] Date:7602-89-16YX [address] [place] [id number]: 11/28/2017 Secondary NOT GIVENUNK [place] Insurance:SELF PAY [facility] Number: Effective Repository Date:2017-11-21 11/19/2017 DALIA J Primary DALIA J [place] [id number] Insurance:HUMANA [facility] COFFMANDOB: Community [employer] HMO IN [facility] [id number] 08/07/18Policy Number: Repository [id number]: (108) [id number] [phone] () Date:7144-92-70LV [address] [place] [id number]: 11/19/2017 Secondary DALIA J Nikolay Insurance:MYCARE [facility] COFFMANDOB: Community *IN [facility] [id number] Hospital Number: Repository [id number] Date:8458-09-95WART CLAIMS DEPTPO [address] [place] [id number]: 11/19/2017 Tertiary NOT GIVENUNK [place] Insurance:SELF PAY [facility] Number: Effective Repository Date:2017-11-19
== END ==
PROVIDERS: Family Provider Family Medicine; PCP Family Medicine; Visit Provider Family Medicine
DX: D64.9 Anemia, unspecified (principal)
CPT/HCPCS: 36415; 83540; 85025

== ENCOUNTER → 2018-09-24 11:55 | Outpatient (CLI) | payer MEDICARE, SELFPAY ==
[2018-09-24 16:13] LABS: ALB/GLOB Ratio 1.1 RATIO (0.9-2.4); AST(SGOT) 19 U/L (15-37); Alanine Aminotransfer ALT/SGPT 21 U/L (13-56); Alkaline Phosphatase 63 U/L (45-117); Anion Gap 7 (5-15); BUN 21 mg/dL (7-18); BUN/Creat Ratio 13.1 RATIO (10-20); Calcium,Total 9.4 mg/dL (8.5-10.1); Chloride 106 mmol/L (98-107); Cholesterol 151 mg/dL (200); EST Glomerular Filtration Rate 33 mL/min (>60); Est Glom Filt Rate - Afr Amer 40 mL/min (>60); Globulin 3.8 g/dL (2.2-4.2); Glucose 111 mg/dL (74-106); High Density Lipoprotein 42 mg/dL; Potassium 4.3 mmol/L (3.5-5.1); Protein, Total 7.8 g/dL (6.4-8.2); Sodium Level 143 mmol/L (136-145); Triglycerides 201 mg/dL; Very Low Density Lipoprotein 40 mg/dL (5-40)
[2018-09-24 17:39] LABS: Hemoglobin A1c 8.3 % (4.2-6.3)
--- OUTSIDE RECORDS SUMMARY | 2018-12-26 16:09 | XMS RPT_ITS ---
:1940 External Reference #:[id number] Author Organization [facility] Care Team Providers Name Role Phone MARY JACOB (PT) Attending Unavailable MOSHE MATOS Referring Unavailable MARY JACOB (PT) Attending Unavailable MOSHE MATOS Referring Unavailable MARY JACOB (PT) Attending Unavailable MOSHE MATOS Referring Unavailable MARY JACOB (PT) Attending Unavailable MOSHE MATOS Referring Unavailable MARY JACOB (PT) Attending Unavailable MOSHE MATOS Referring Unavailable MARY JACOB (PT) Attending Unavailable MOSHE MATOS Referring Unavailable Jairon Reyez Attending Unavailable Moshe Matos Primary Care Unavailable Heriberto Kaur Attending Unavailable Moshe Matos Referring Unavailable Heriberto Kaur Attending Unavailable Heriberto Kaur Referring Unavailable Carlo, Moshe Primary Care Unavailable Carlo, Moshe Attending Unavailable Carlo, Moshe Referring Unavailable Carlo, Moshe Primary Care Unavailable Carlo, Moshe Attending Unavailable Carlo, Moshe Referring Unavailable Carlo, Moshe Primary Care Unavailable Carlo, Moshe Primary Care Unavailable Wang Mccoy Attending Unavailable Carlo, Moshe Primary Care Unavailable Shelly, Merna Attending Unavailable Carlo, Moshe Attending Unavailable Carlo, Moshe Primary Care Unavailable PROBLEMS PROBLEMS DATE TYPE CONDITION / CODE ATTENDING STATUS SOURCE 10/30/2018 Unknown M25.511 - Pain in Heriberto Kaur Active [place] right shoulder / Community M25.511(ICD-10) Hospital Repository 10/23/2018 Unknown Z96.611 - Presence Heriberto Kaur Active [place] of right artificial Community shoulder joint / Hospital Z96.611(ICD-10) Repository 09/24/2018 Unknown E11.65 - 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[facility] with hyperglycemia Hospital / E11.65(ICD-10) Repository 09/24/2018 Unknown N18.3 - Chronic Jairon Reyez Active [place] kidney disease, [facility] stage 3 (moderate) Hospital / N18.3(ICD-10) Repository 09/24/2018 Unknown E78.5 - Jairon Reyez Active [place] Hyperlipidemia, [facility] unspecified / Hospital E78.5(ICD-10) Repository 09/24/2018 Unknown 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 / Repository E11.21(ICD-10) 09/19/2018 Unknown D64.9 - Anemia, Moshe Matos Active [place] unspecified / Community D64.9(ICD-10) Hospital Repository 09/19/2018 Unknown R03.0 - Elevated [facility], Active [place] blood-pressure [facility] reading, without Hospital diagnosis of Repository hypertension / R03.0(ICD-10) 09/19/2018 Unknown R53.1 - Weakness / Wang Mccoy Active [place] R53.1(ICD-10) [facility] Hospital Repository PROCEDURES PROCEDURES No Procedure Records FoundRESULTS RESULTS ORTHOPEDIC VISIT Observed: 10/23/2018 Status: F Source: [place] REPORT 12:09 PM [facility] REPOSITORY [facility] Orthopaedics AND Sports Medicine [address] [place] [id number] OFFICE VISIT Date of Service: 10/23/18 MR#: [id number] Acct: [id number] Name: DALIA MUSE Rep #: [id number] : 1940 Provider: SOFYA Kaur Age/Sex: 77/F Location: [facility] Status: Signed Intake Intake Visit Reasons: RIGHT SHOULDER Is patient in pain?: Yes Pain scale (1-10): 3 Allergies Penicillins [PCN] Allergy (Verified 10/23/18 10:36) Swelling Medications Glimepiride [Amaryl] 4 mg PO BID 03/22/15 [History Confirmed 06/29/18] Metformin HCl [Glucophage] 1,000 mg PO DAILY 03/22/15 [History Confirmed 06/29/18] Omeprazole [Prilosec] 20 mg PO DAILY 04/17/16 [History Confirmed 06/29/18] Aspirin 81 mg PO DAILY 02/26/17 [History Confirmed 06/29/18] Atorvastatin Calcium [Lipitor] 40 mg PO QHS 02/26/17 [History Confirmed 06/29/18] Naproxen 500 mg PO DAILY 02/26/17 [History Confirmed 06/29/18] Lisinopril [Zestril] 1 mg PO DAILY 06/29/18 [History Confirmed 06/29/18] hydroCHLOROthiazide [Hydrochlorothiazide] 1 tab PO DAILY 06/29/18 [History Confirmed 06/29/18] PFSH Medical History Diabetes (Acute) Surgical History h/o right shoulder replacement (Acute) Social History Smoking Status: Current every day smoker tobacco type: cigarettes HPI RIGHT SHOULDER: Details: DALIA MUSE is a 77 year old F new patient here today for right shoulder pain. Patient notes that she has had right shoulder pain a few months. She states that she has had pain off and on, her pain is not constant. Her pain is over her anterior shoulder. She has decreased range of motion. Patient denies any weakness. She states that she fell and had a shoulder replacement a few years ago. Patient denies any injections or physical therapy. She denies any xrays or MRI. She notes htat she has numbness into her fingers about once a month. ROS Const Reports system reviewed and no additional complaints, except as docu Eyes Reports system reviewed and no additional complaints, except as docu ENT Reports system reviewed and no additional complaints, except as docu Card Reports system reviewed and no additional complaints, except as docu Resp Reports system reviewed and no additional complaints, except as docu GI Reports system reviewed and no additional complaints, except as docu Reports system reviewed and no additional complaints, except as docu Musc Reports joint pain, Reports limited joint movement Skin/Breast Reports system reviewed and no additional complaints, except as docu Neuro Yes system reviewed and no additional complaints, except as docu Psych Reports system reviewed and no additional complaints, except as docu Endo Reports system reviewed and no additional complaints, except as docu Ortho Exam Right Shoulder Testing: Positive AROM-External Rotation at side 0-60 (25); negative Neer's, TTP Biceps, TTP AC Joint, AROM-Forward Elevation 0-180 (110), Sulcus Sign or Hawkin's Internal Rotation: L5 SHOULDER: Patient has no evident abnormalities on inspection of the shoulder today. She has a very well-healed incision site on the anterior shoulder with minimal scarring. She has no generalized or localized swelling and no bruising or other skin changes. At this time patient does have limited range of motion at the same time for reverse total toe shoulder is to be expected. Her strength is actually pretty good with only minor weakness compared to the left side. She has no tenderness on palpation or with movement of the shoulder in the office. Assessment AND Plan Problems 1. History of arthroplasty of right shoulder Z96.611 Plan Obtained Xrays of patient's right shoulder. Personally reviewed Xrays. There is no obvious fracture, dislocation, or lucency noted. Patient does have orthopedic hardware in place that does not show any change from previous x-rays. See chart for further details. At this time patient presents to the office having minimal very intermittent pains in the right shoulder. She states that she really has been able to do everything that she wants to do and she does everything without pain. Her biggest complaint she states is that her arm does not move like her left one does. She has no instability of the shoulder and has not had any feelings of subluxation or dislocation. At this time we did discuss that after a reverse total shoulder arthroplasty that the range of motion often is not go to be back to normal. She actually has a pretty decent amount of range of motion compared to the left shoulder and actually pretty good strength. There are not activities that she is hoping to do that she says she cannot at this time. At this time we discussed going back to see the surgeon who did her replacement and/or seeing another surgeon who does replacements for evaluation. She states that she does not feel like she really needs to go back that she really can live with how the shoulder is she just wanted to have it checked. At this time we discussed may be going back to do some physical therapy to see if we continue working on some strength and stability of the shoulder and at this time patient would like to go ahead with this. Patient was then given a prescription for physical therapy for the right shoulder. Again I did discuss that if she has increasing pains or other concerns with instability of the shoulder then we need to have her see an upper extremity specialist and/or the surgeon who performed the reverse arthroplasty. She would like to wait and see how the physical therapy does. I still would prefer that she follow with a surgeon who did her original surgery and deftly would like somebody to evaluate her after she does physical therapy in 6-8 weeks. All of patient's questions were answered at this time. This note was generated with NiftyThrif[employer] dictation software. It may contain incorrect words, spelling, and punctuation that were not noted in checking the note before signing. Orders Orders: Coding Level of Care Code Off vis,new,level 3 Diagnoses History of arthroplasty of right shoulder Z96.611 10/23/18 1209 <Electronically signed by Heriberto COWART> Date Heriberto COWART Cosigner Signature: Date (if applicable) CC: SHOULDER MIN 2 VIEWS Observed: 10/23/2018 Status: F Source: [place] 10:57 AM [facility] REPOSITORY [facility] Imaging Services [address] [place] [address] Shoulder min 2 Views MR#: [id number] Acct: [id number] Name: DALIA MUSE Rep #: [id number] : 1940 F 77 From: Benjamin Dyer MD PCP: Moshe Matos MD Status: REG CLI Study: Shoulder min 2 Views Date of Exam: 10/23/18 Exam# [id number] Ordering Dr: Heriberto Kaur STUDY: X-RAY - RIGHT SHOULDER REASON FOR EXAM: Female, 77 years old. TECHNIQUE: 4 view(s) of the shoulder. COMPARISON: None. 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 There are no acute fractures or dislocations. The surrounding soft tissues are normal. Electronically Signed: Benjamin Dyer MD at 2:45 EST Tel , Service support , RAD/Shoulder min 2 Views CC: SOFYA Kaur; Moshe Matos MD 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: Signed COMPREHENSIVE METABOLIC Collected: 09/24/2018 Status: F Source: [place] 11:56 AM [facility] REPOSITORY TYPE CODE TESTS RESULT OUT OF RANGE REFERENCE UNITS LAB L501.0100 74-106 mg/dL High GLU 111 Result Comment: Fasting Glucose result from 100 to 125 mg/dL suggests IMPAIRED HOMEOSTASIS per A.D.A. criteria. Please note revised GLUCOSE reference range effective 2017. LAB L501.1000 7-18 mg/dL High BUN 21 LAB L501.1100 0.55-1.02 mg/dL High CREAT,SERUM 1.60 Result Comment: The validity of the calculated GFR AND GFRAA in patients over 70 years has not been determined. Clinical correlation is essential. LAB L501.1110 >60 mL/min Low EST GFR 33 Result Comment: Non- GFR Calc LAB L501.1115 >60 mL/min Low EST GFR - AA 40 Result Comment: GFR Calc LAB L501.1300 10-20 RATIO Normal BUN/CRE 13.1 LAB L501.1500 6.4-8.2 g/dL T Normal PROT 7.8 LAB L501.1800 3.2-5.0 g/dL Normal ALB 4.0 LAB L501.1950 2.2-4.2 g/dL Normal GLOB 3.8 LAB L501.2000 0.9-2.4 RATIO Normal A/G 1.1 LAB L501.2200 8.5-10.1 mg/dL CA Normal 9.4 LAB L501.4100 15-37 U/L Normal AST 19 LAB L501.4305 45-117 U/L Normal ALK P 63 LAB L501.4405 13-56 U/L Normal ALT 21 LAB L501.4600 0.20-1.00 mg/dL T Normal BILI 0.50 LAB L501.5300 136-145 mmol/L NA Normal 143 LAB L501.5600 3.5-5.1 mmol/L K Normal 4.3 LAB L501.5900 98-107 mmol/L CL Normal 106 LAB L501.6100 21.0-32.0 mmol/L Normal CO2 30.0 LAB L501.6200 5-15 Normal GAP 7 Performed By: #### L500.4050, L500.4100 #### [facility] [address] [place], [address] LIPID PROFILE Collected: 09/24/2018 Status: F Source: [place] 11:56 AM [facility] REPOSITORY TYPE CODE TESTS RESULT OUT OF RANGE REFERENCE UNITS LAB L501.4900 200 mg/dL Normal CHOL 151 Result Comment: <200 mg/dL Desirable 200-240 mg/dL Borderline >240 mg/dL High Risk LAB L501.5000 mg/dL High TRIG 201 Result Comment: The drugs N-Acetylcysteine and Metamizole may falsely depress this assay. Serum Triglycerides Reference Interval Normal <150 mg/dL Borderline high 150 - 199 mg/dL High 200 - 499 mg/dL Very High > or = 500 mg/dL LAB L501.6400 mg/dL Normal HDL 42 Result Comment: The drugs N-Acetylcysteine and Metamizole may falsely depress this assay. Reference Range HDL <40 mg/dL Low HDL Cholesterol HDL >or= 60 mg/dL High HDL Cholesterol LAB L501.6500 0-130 mg/dL Normal LDL 69 LAB L501.6600 5-40 mg/dL Normal VLDL 40 Performed By: #### L500.4050, L500.4100 #### [facility] [address] [place], [address] HEMOGLOBIN A1C Collected: 09/24/2018 Status: F Source: [place] 11:56 AM [facility] REPOSITORY TYPE CODE TESTS RESULT OUT OF RANGE REFERENCE UNITS LAB L501.9985 4.2-6.3 % High HGB A1C 8.3 Performed By: #### L501.9985 #### [facility] [address] [place], [address] CBC W/DIFF, AUTOMATED Collected: 09/02/2018 Status: F Source: [place] 11:29 AM [facility] REPOSITORY TYPE CODE TESTS RESULT [...] Lymph 2.17 Performed By: #### L100.0100 #### [facility] [address] [facility] [place], [address] IRON Collected: 09/02/2018 Status: F Source: [place] 11:29 AM [facility] REPOSITORY TYPE CODE TESTS RESULT OUT OF RANGE REFERENCE UNITS LAB L503.6150 50-170 ug/dL Low IRON 43 Performed By: #### L503.6150 #### [facility] [address] [facility] [place], [address] EMERGENCY DEPARTMENT Observed: 06/29/2018 Status: F Source: [place] SUMMARY 4:31 PM [facility] REPOSITORY [facility] Medical Records Department [address] [place] [address] Emergency Department Summary 06/29/18 1524 MR#: [id number] Acct: [id number] Name: DALIA MUSE Rep #: [id number] : 1940 77 From: Merna Bravo MD [...] Hypertension, established This note was generated with NiftyThrifty dictation software. It may contain incorrect words, [...] your Primary Care Provider. Call [facility] ([phone]) or report to the closest Emergency Room. Call 911 if necessary. 06/29/18 1631 <Electronically signed by Merna Bravo MD> Date Merna Bravo MD Cosigner Signature (If Indicated): Date CC: Moshe Matos MD BEDSIDE GLUCOSE Collected: 06/29/2018 Status: F Source: [place] 3:36 PM [facility] REPOSITORY TYPE CODE TESTS RESULT OUT OF REFERENCE UNITS RANGE LAB L501.080 70-110 mg/dL High BEDSIDE GLU 164 Result Comment: MANAGEMENT OF PATIENT CARE PER NURSING PROTOCOL Performed By: #### L501.080 #### [facility] Point of Care [address] [place] [address] DISCHARGE INSTRUCTION Observed: 06/29/2018 Status: F Source: [place] 3:27 PM [facility] REPOSITORY [facility] Medical Records Department [address] [place] [address] Discharge Instruction 06/29/18 1527 MR#: [id number] Acct: [id number] Name: DALIA MUSE Rep #: [id number] : 1940 77 From: Merna Bravo MD [...] your Primary Care Provider. Call [facility] ([phone]) or report to the closest Emergency Room. Call 911 if necessary. 06/29/181526 <Electronically signed by Merna Bravo MD> Date Merna Bravo MD Cosigner Signature (If Indicated): Date CC: Moshe Matos MD 12 LEAD ELECTROCARDIOGRAM Observed: 04/10/2018 Status: F Source: [place] 2:29 PM [facility] REPOSITORY [facility] Cardiovascular Services [address] [place] [address] 12 Lead EKG 04/08/18 1552 MR#: [id number] Acct: [id number] Name: DALIA MUSE Rep #: [id number] : 1940 77 From: Johnny Michelle MD [...] consider lateral ischemia Abnormal ECG Confirmed by JOHNNY MICHELLE MD ([id number]), film editor KEVIN STALLWORTH ([id number]) on 04/10/2018 2:29:11 PM Referred By: KATE Confirmed By:JOHNNY MICHELLE MD 04/10/18 1429 Date Johnny Michelle MD CC: Wnag Mccoy DO; Moshe Matos MD Signed EMERGENCY DEPARTMENT Observed: 04/08/2018 Status: F Source: [place] SUMMARY 11:36 PM [facility] REPOSITORY [facility] Medical Records Department [address] [place] [address] Emergency Department Summary 04/08/18 1532 MR#: [id number] Acct: [id number] Name: DALIA MUSE Rep #: [id number] : 1940 77 From: Wang Mccoy DO [...] medical noncompliance This note was generated with Sparkplay Mediaation software. It may contain incorrect words, spelling, [...] your Primary Care Provider. Call [facility] ([phone]) or report to the closest Emergency Room. Call 911 if necessary. 04/08/18 2336 <Electronically signed by Wang Mccoy DO> Date Wang Mccoy DO Cosigner Signature (If Indicated): Date CC: Moshe Matos MD URINALYSIS, COMPLETE Collected: 04/08/2018 Status: F Source: [place] 3:55 PM [facility] REPOSITORY Order Comment: Order Date: [...] URINE SEEN Performed By: #### L400.0001 #### [facility] [address] [facility] [place], [address] CHEST 1 VIEW Observed: 04/08/2018 Status: F Source: [place] (PORTABLE) 3:33 PM [facility] REPOSITORY [facility] Imaging Services [address] [place] [address] Chest 1 View (Portable) MR#: [id number] Acct: [id number] Name: DALIA MUSE Rep #: [id number] : 1940 F 77 From: Sal Corral MD PCP: Moshe Matos MD Status: REG ER Study: Chest 1 View (Portable) Date of Exam: 04/08/18 Exam# [id number] Ordering Dr: Wang Mccoy DO STUDY: X-RAY [...] CC: Wang Mccoy DO; Moshe Matos MD 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: Signed CBC W/DIFF, AUTOMATED Collected: 04/08/2018 Status: F Source: [place] 3:30 PM [facility] REPOSITORY TYPE CODE TESTS RESULT [...] Lymph 2.18 Performed By: #### L100.0100 #### [facility] [address] [place], [address] BASIC METABOLIC Collected: 04/08/2018 Status: F Source: [place] PROFILE ([facility]) 3:30 PM [facility] REPOSITORY TYPE CODE TESTS RESULT [...] 8 Performed By: #### L500.2500, L501.4010 #### [facility] [address] [place], [address] TROPONIN-I Collected: 04/08/2018 Status: F Source: [place] 3:30 PM [facility] REPOSITORY TYPE CODE TESTS RESULT OUT OF RANGE REFERENCE UNITS LAB L501.4010 <0.045 ng/mL Normal 0.016 TROPONIN-I Result Comment: TROPONIN-I EXPECTED VALUES <0.045 Negative 0.045 - 0.590 Consistent with Cardiac Damage > OR = 0.600 Critical Value Not every elevated troponin is indicative of [place]. These values should be used with clinical judgement in examining the patient's clinical picture for diagnosis. To establish a diagnosis of AZ versus myocardial injury, there must be a demonstrated rise and/or fall in the troponin values, in addition to ischemic symptoms, EKG changes, new regional wall motion abnormality, and/or angiographical evidence. PLEASE NOTE: REFERENCE RANGES EDITED 18 Performed By: #### L500.2500, L501.4010 #### [facility] [address] [place], [address] PROGRESS Observed: 12/25/2017 Status: COMPLETED Source: [place] 11:32 AM [facility] [place] REPOSITORY HNO ID: [id number] Author: Mary (López) Nidia Service: (none) Author [...] her HEP independently. Goals updated on 12/24/2017. [place] in home exercise program.--MET Patient will decrease [...] appropriate interventions. Patient education as noted. Billing: [facility]: Therapeutic Exercise (50311): 1:1 time: 38 minutes (3 units: 38-52 mins) Total time: 38 minutes Mary Jacob PT CNTHERAPY Observed: 12/24/2017 Status: COMPLETED Source: [place] 1:15 PM [facility] REPOSITORY OT/PT/Speech Visit (PTWS) DALIA MUSE ([id number]) 1940 F Date Time Provider Department 12/24/17 1:15 PM MARY JACOB (PT) PTWS Date Time Provider Department Center 12/24/2017 1:15 PM [id number], DIANA (PT)PTWS [facility] [place] Reason for Visit: PT Progress Note [...] her HEP independently. Goals updated on 12/24/2017. [place] in home exercise program.--MET Patient will decrease [...] appropriate interventions. Patient education as noted. Billing: [facility]: Therapeutic Exercise (38976): 1:1 time: 38 minutes (3 units: 38-52 mins) Total time: 38 minutes Mary Jacob PT PROGRESS Observed: 12/17/2017 Status: COMPLETED Source: [place] 9:45 AM [facility] REPOSITORY HNO ID: [id number] Author: Mary (Pt) Nidia Service: (none) Author [...] week ago. She is thinking about joining [email or web address]. (Encourage patient to look into a membership) [...] assessment of patient's response to intervention. Billing: [facility]: Therapeutic Exercise (29703): 1:1 time: 37 minutes (2 units: 23-37 mins) Manual Therapy (13956): 1:1 time: 8 minutes (1 unit: 8-22 mins) Total time: 45 minutes Mary Jacob PT CNTHERAPY Observed: 12/17/2017 Status: COMPLETED Source: [place] 9:15 AM [facility] REPOSITORY OT/PT/Speech Visit (PTWS) DALIA MUSE ([id number]) 1940 F Date Time Provider Department 12/17/17 9:15 AM MARY JACOB (PT) PTWS Date Time Provider Department Center 12/17/2017 9:15 AM [id number], DIANA (PT)PTWS [facility] [place] Reason for Visit: Physical Therapy [503] [...] week ago. She is thinking about joining [email or web address]. (Encourage patient to look into a membership) [...] assessment of patient's response to intervention. Billing: [facility]: Therapeutic Exercise (78895): 1:1 time: 37 minutes (2 units: 23-37 mins) Manual Therapy (75685): 1:1 time: 8 minutes (1 unit: 8-22 mins) Total time: 45 minutes Mary Jacob PT PROGRESS Observed: 2017 Status: COMPLETED Source: [place] 12:19 PM [facility] [place] REPOSITORY HNO ID: [id number] Author: Mary (López) Nidia Service: (none) Author [...] assessment of patient's response to intervention. Billing: [facility]: Therapeutic Exercise (50039): 1:1 time: 30 minutes (2 units: 23-37 mins) Manual Therapy (92929): 1:1 time: 11 minutes (1 unit: 8-22 mins) Total time: 41 minutes Mary Jacob PT CNTHERAPY Observed: 12/13/2017 Status: COMPLETED Source: [place] 12:30 PM [facility] REPOSITORY OT/PT/Speech Visit (PTWS) DALIA MUSE ([id number]) 1940 F Date Time Provider Department 12/13/17 12:30 PM MARY JACOB (PT) PTWS Date Time Provider Department Center 12/13/2017 12:30 PM [id number], DIANA (PT)PTWS [facility] [place] Reason for Visit: Physical Therapy [503] [...] assessment of patient's response to intervention. Billing: [facility]: Therapeutic Exercise (61650): 1:1 time: 30 minutes (2 units: 23-37 mins) Manual Therapy (86738): 1:1 time: 11 minutes (1 unit: 8-22 mins) Total time: 41 minutes Mary Jacob PT PROGRESS Observed: 12/09/2017 Status: COMPLETED Source: [place] 2:03 PM [facility] REPOSITORY HNO ID: [id number] Author: Mary Jacob Service: (none) Author Type: [...] assessment of patient's response to intervention. Billing: [facility]: Therapeutic Exercise (24675): 1:1 time: 25 minutes (2 units: 23-37 mins) Manual Therapy (53947): 1:1 time: 15 minutes (1 unit: 8-22 mins) Total time: 40 minutes Mary Jacob PT CNTHERAPY Observed: 12/09/2017 Status: COMPLETED Source: [place] 1:00 PM [facility] REPOSITORY OT/PT/Speech Visit (PTWS) DALIA MUSE ([id number]) 1940 F Date Time Provider Department 12/09/17 1:00 PM MARY JACOB (PT) PTWS Date Time Provider Department Center 12/09/2017 1:00 PM [id number], DIANA (PT)PTWS [facility] [place] Reason for Visit: Physical Therapy [503] [...] assessment of patient's response to intervention. Billing: [facility]: Therapeutic Exercise (64904): 1:1 time: 25 minutes (2 units: 23-37 mins) Manual Therapy (72434): 1:1 time: 15 minutes (1 unit: 8-22 mins) Total time: 40 minutes Mary Jacob PT PROGRESS Observed: 12/06/2017 Status: COMPLETED Source: [place] 9:14 AM [facility] REPOSITORY O ID: [id number] Author: Mary Jacob Service: (none) Author Type: [...] assessment of patient's response to intervention. Billing: [facility]: Therapeutic Exercise (44142): 1:1 time: 33 minutes (2 units: 23-37 mins) Manual Therapy (70507): 1:1 time: 15 minutes (1 unit: 8-22 mins) Total time: 48 minutes Mary Jacob PT CNTHERAPY Observed: 12/03/2017 Status: COMPLETED Source: [place] 9:15 AM [facility] REPOSITORY OT/PT/Speech Visit (PTWS) DALIA MUSE ([id number]) 1940 F Date Time Provider Department 12/03/17 9:15 AM MARY JACOB (PT) PTWS Date Time Provider Department Center 12/03/2017 9:15 AM [id number], DIANA (PT)PTWS [facility] Reason for Visit: Physical Therapy [503] [...] assessment of patient's response to intervention. Billing: [facility]: Therapeutic Exercise (33180): 1:1 time: 33 minutes (2 units: 23-37 mins) Manual Therapy (79512): 1:1 time: 15 minutes (1 unit: 8-22 mins) Total time: 48 minutes Mary Jacob PT PROGRESS Observed: 11/27/2017 Status: COMPLETED Source: [place] 4:00 PM [facility] REPOSITORY HNO ID: [id number] Author: Mary (Pt) Nidia Service: (none) Author [...] of Care: created on 11/26/17 through 02/05/18 [place] in home exercise program. Patient will decrease [...] Planned Treatment Interventions: Therapeutic exercise;Neuromuscular re-education;Therapeutic activities;Self- usp management;Patient/Family/Caregiver Education;General Conditioning;Functional training;Manual therapy Patient demonstrates [...] with verbal, visual and tactile cuing. Billing: [facility]: Evaluation - Moderate Complexity (84770) Therapeutic Exercise (52470): 1:1 time: 15 minutes (1 unit: 8-22 mins) Total time: 40 minutes Mary Jacob PT CNTHERAPY Observed: 11/26/2017 Status: COMPLETED Source: [place] 2:45 PM [facility] REPOSITORY OT/PT/Speech Visit (PTWS) DALIA MUSE ([id number]) 1940 F Date Time Provider Department 11/26/17 2:45 PM MARY JACOB (PT) PTWS Date Time Provider Department Center 11/26/2017 2:45 PM [id number], DIANA (PT)PTWS [facility] Reason for Visit: PT Eval [747] [...] of Care: created on 11/26/17 through 02/05/18 [place] in home exercise program. Patient will decrease [...] Planned Treatment Interventions: Therapeutic exercise;Neuromuscular re-education;Therapeutic activities;Self- usp management;Patient/Family/Caregiver Education;General Conditioning;Functional training;Manual therapy Patient demonstrates [...] with verbal, visual and tactile cuing. Billing: [facility]: Evaluation - Moderate Complexity (59834) Therapeutic Exercise (73646): 1:1 time: 15 minutes (1 unit: 8-22 mins) Total time: 40 minutes Mary Jacob PT Letter Text SHOULDER MIN 2 VIEWS Observed: 11/19/2017 Status: F Source: [place] 10:33 AM [facility] REPOSITORY [facility] Imaging Services [address] [place] [address] Shoulder min 2 Views MR#: [id number] Acct: [id number] Name: DALIA MUSE Rep #: [id number] : 1940 F 76 From: Sal Corral MD PCP: Moshe Matos Status: REG CLI Study: Shoulder min 2 Views Date of Exam: 11/19/17 Exam# [id number] Ordering Dr: Moshe Matos MD STUDY: X-RAY [...] , Service support , CC: Moshe Matos 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: Signed ALLERGIES ALLERGIES DATE TYPE / CODE NAME / CODE REACTION SEVERITY SOURCE 10/23/2018 Drug Penicillins/W14135 Swelling Unknown [place] Allergy/416 0476(RXNORM) Community 063994([facility] ED CT) Repository 09/17/2008 Drug PENICILLINS [facility] Class/48204 [facility] 1003([facility]) ENCOUNTERS ENCOUNTERS ADMIT/DISCHARGE ACCOUNT ADMITTING ENCOUNTER LOCATION SOURCE NUMBER CLASS 10/23/2018 [id number] Ambulatory [facility] ing:HPRAD Repository 10/23/2018/10/23/19 [id number] Ambulatory BMSBuilding:B [place] [facility] Repository 09/24/2018 [id number] Ambulatory [facility] ing:BFHLAB Repository 09/02/2018 [id number] Ambulatory [facility] ing:BFHLAB Repository 06/29/2018/06/29/20 [id number] Emergency [address] ing:ED Repository 04/08/2018/04/08/20 [id number] Emergency [address] ing:ED Repository 12/24/2017/12/26/19 [id number] Ambulatory [address] Repository 12/17/2017/12/20/19 [id number] Ambulatory [address] Repository 12/13/2017/05/10 [id number] Ambulatory [address] Repository 12/09/2017/12/19/19 [id number] Ambulatory [address] Repository 12/03/2017/12/07/19 [id number] Ambulatory [address] Repository 11/28/2017 [id number] [facility] ing:PT Repository 11/26/2017/11/29/19 [id number] Ambulatory [address] Repository 11/19/2017 [id number] [facility] ing:MTRAD Repository PAYERS PAYERS ENCOUNTER GUARANTOR PAYER SUBSCRIBER SOURCE 10/23/2018 DALIA J Primary DALIA J Nikol[place] [id number] Insurance:MYCARE CRSC COFFMANDOB: Community RAMONA DUTTON *IN [facility] [id number] Number: Repository [id number]: [phone] [id number] [phone] () Date:5099-65-15OQHQ CLAIMS DEPTPO [address] [place] [address]TA: 10/23/2018 Secondary NOT GIVENUNK Nikolay Insurance:SELF PAY [facility] Number: Effective Repository Date:2018-10-23 10/23/2018 DALIA J Primary DALIA J [place] [id number] Insurance:HUMANA MCR COFFMANDOB: Community RAMONA NEVESLOT HMO IN [facility] [id number] 08/07/18Policy Number: Repository [id number]: [id number] [phone] () Date:5880-02-86ZJ [address] [place] [address]AT: 10/23/2018 Secondary DALIA J Nikolay Insurance:MYCARE CRSC COFFMANDOB: Community *IN [facility] [id number] Hospital Number: Repository [id number] Date:5446-76-66KXYJ CLAIMS DEPTPO [address] [place] [address]JC: 10/23/2018 Tertiary NOT GIVENUNK Nikol[place] Insurance:SELF PAY [facility] Number: Effective Repository Date:2018-10-01 09/24/2018 DALIA J Primary DALIA J [place]ol[place] [id number] Insurance:HUMANA MCR COFFMANDOB: Community [employer] HMO IN [place] [id number] 08/07/18Policy Number: Repository [id number]: [id number] [phone] () Date:3045-87-12UF [address] [place] [address]AT: 09/24/2018 Secondary DALIA J Nikolay Insurance:MYCARE CRSC COFFMANDOB: Community *IN [place] [id number] Hospital Number: Repository [id number] Date:1484-51-65NBHR [facility] [address] [place] [address]QS: 09/24/2018 Tertiary NOT GIVENUNK [place] Insurance:SELF PAY [facility] Number: Effective Repository Date:2018-09-24 09/02/2018 DALIA J Primary DALIA J Nikol[place] [id number] Insurance:HUMANA MCR COFFMANDOB: Community [employer] HMO IN [place] [id number] 08/07/18Policy Number: Repository [id number]: [id number] [phone] () Date:5185-47-40BU [address] [address]CZ: 09/02/2018 Secondary DALIA J Nikolay Insurance:MYCARE CRSC COFFMANDOB: Community *IN [facility] [id number] Hospital Number: Repository [id number] Date:2438-34-19JAMI CLAIMS DEPTPO [address] [address]HN: 09/02/2018 Tertiary NOT GIVENUNK [place] Insurance:SELF PAY [facility] Hospital Number: Effective Repository Date:2018-09-02 06/29/2018 DALIA J Primary DALIA J [place] [id number] Insurance:HUMANA [facility] COFFMANDOB: Community [employer] HMO [place] [id number] 08/07/18Policy Number: Repository [id number]: [id number] [phone] () Date:2468-35-60YD [address] [place] [address]MT: 06/29/2018 Secondary DALIA J [place] Insurance:MYCARE [facility] COFFMANDOB: Community *IN [facility] [id number] Hospital Number: Repository [id number] Date:7066-20-34VLEH CLAIMS DEPTPO [address] [place] [address]MT: 06/29/2018 Tertiary NOT GIVENUNK [place] Insurance:SELF PAY [facility] Number: Effective Repository Date:2018-06-29 04/08/2018 DALIA J Primary Insurance:[facility] DALIA J [place] [id number] [facility] COFFMANDOB: Community [employer] [id number] Date:9256-03-03XU BOX Repository [address]Djy: [phone] GARCIA [phone] () [address]PH: 04/08/2018 Secondary NOT GIVENUNK Nik[place] Insurance:SELF PAY [facility] Hospital Number: Effective Repository Date:2018-04-08 11/28/2017 DALIA [id number] Primary DALIA [place] [address] Insurance:[facility] COFFMANDOB: [address] HMO -OUT OF [id number] Hospital [address]Nqe: 234) NETWORKPolicy Number: Repository [phone] () [id number] Date:1568-64-55DH [address] [place] [address]UD: 11/28/2017 Secondary NOT GIVENUNK [place] Insurance:SELF PAY [facility] Hospital Number: Effective Repository Date:2017-11-21 11/19/2017 DALIA J Primary DALIA J [place] [id number] Insurance:HUMANA MCR COFFMANDOB: Community [employer] HMO IN [facility] [id number] 08/07/18Policy Number: Repository [id number]: [phone] [id number] [phone] () Date:3224-59-79QY [address], [place] [address]HJ: 11/19/2017 Secondary DALIA J Nikolay Insurance:MYCARE CRSC COFFMANDOB: Community *IN [facility] [id number] Hospital Number: Repository [id number] Date:0259-72-65LDFC CLAIMS [address]PT[address], [place] [address]NX: 11/19/2017 Tertiary NOT GIVENUNK [place] Insurance:SELF PAY [facility] Number: Effective Repository Date:2017-11-19
== END ==
PROVIDERS: Family Provider Family Medicine; PCP Family Medicine; Visit Provider Family Medicine
DX: E11.65 Type 2 diabetes mellitus with hyperglycemia (principal); N18.3 Chronic kidney disease, stage 3 (moderate); E78.5 Hyperlipidemia, unspecified; E11.21 Type 2 diabetes mellitus with diabetic nephropathy
CPT/HCPCS: 36415; 80053; 80061; 83036

== ENCOUNTER → 2018-10-23 10:54 | Outpatient (CLI) | payer MEDICARE, SELFPAY ==
--- NOTE | 2018-10-23 10:56 | RAD_ITS ---
STUDY: X-RAY - RIGHT SHOULDER REASON FOR EXAM: Female, 77 years old. TECHNIQUE: 4 view(s) of the shoulder. COMPARISON: None. 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 There are no acute fractures or dislocations. The surrounding soft tissues are normal. Electronically Signed: Benjamin Dyer MD at 2:45 EST Tel , Service support , RAD/Shoulder min 2 Views
--- OUTSIDE RECORDS SUMMARY | 2018-12-28 01:57 | XMS RPT_ITS ---
[...] Kaur Attending Unavailable Moshe Matos Referring Unavailable Moshe Matos Attending Unavailable Moshe Matos Referring Unavailable Carlo, Moshe Primary Care Unavailable Carlo, Moshe Attending Unavailable Carlo, Moshe Referring Unavailable Carlo, Moshe Primary Care Unavailable Carlo, Moshe Primary Care Unavailable Wang Mccoy Attending Unavailable Heriberto Kaur Attending Unavailable Wayfay, Heriberto Referring Unavailable Carlo, Moshe Primary Care Unavailable Carlo, Moshe Primary Care Unavailable Shelly Merna Attending Unavailable Carlo, Moshe Attending Unavailable Carlo, Moshe Primary Care Unavailable PROBLEMS PROBLEMS DATE TYPE CONDITION / CODE ATTENDING STATUS SOURCE 10/30/2018 Unknown M25.511 - Pain in Heriberto Kaur Active [place] right shoulder / Community M25.511(ICD-10) Hospital Repository 10/23/2018 Unknown 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 / Hospital Z96.611(ICD-10) Repository 09/24/2018 Unknown 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[facility] with hyperglycemia Hospital / E11.65(ICD-10) Repository 09/24/2018 Unknown N18.3 - Chronic Jairon Reyez Active [place] kidney disease, [facility] stage 3 (moderate) Hospital / N18.3(ICD-10) Repository 09/24/2018 Unknown E78.5 - DerejeJairon ortiz Active [place] Hyperlipidemia, [facility] unspecified / Hospital E78.5(ICD-10) Repository 09/24/2018 Unknown 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 / Repository E11.21(ICD-10) 09/19/2018 Unknown D64.9 - Anemia, Moshe Matos Active [place] unspecified / Community D64.9(ICD-10) Hospital Repository 09/19/2018 Unknown R03.0 - Elevated [facility] Active [place] blood-pressure [facility] reading, without Hospital diagnosis of Repository hypertension / R03.0(ICD-10) 09/19/2018 Unknown R53.1 - Weakness / Wang Mccoy Active [place] R53.1(ICD-10) [facility] Repository PROCEDURES PROCEDURES No Procedure Records FoundRESULTS RESULTS ORTHOPEDIC VISIT Observed: 10/23/2018 Status: F Source: [place] REPORT 12:09 PM [facility] HOSPITAL REPOSITORY [facility] OS Orthopaedics AND Sports Medicine [address] [place] [address] OFFICE VISIT Date of Service: 10/23/18 MR#: [id number] Acct: [id number] Name: DALIA MUSE Rep #: [id number] : 1940 Provider: SOFYA Kaur Age/Sex: 77/F Location[place] [facility] [place] Status: Signed Intake Intake Visit Reasons: RIGHT [...] this time. This note was generated with Saqina dictation software. It may contain incorrect words, [...] 10/23/2018 Status: F Source: [place] 10:57 AM [facility] REPOSITORY [facility] Imaging Services [address] [place] [address] Shoulder min 2 Views MR#: [id number] Acct: [id number] Name: DALIA MUSE Rep #: [id number] : 1940 F 77 From: Benjamin Dyer MD PCP: Moshe Matos MD Status: REG CLI Study: Shoulder min 2 Views Date of Exam: 10/23/18 Exam# [id number] Ordering Dr: Heriberto Kaur STUDY: X-RAY - [...] Views CC: SOFYA Kaur; Moshe Matos MD Tray Packer: Signed COMPREHENSIVE METABOLIC Collected: 09/24/2018 Status: F Source: [place] NOY 11:56 AM [facility] REPOSITORY TYPE CODE TESTS RESULT OUT [...] By: #### L500.4050, L500.4100 #### [facility] Laboratory [address] [place], [address] LIPID PROFILE Collected: 09/24/2018 Status: F Source: [place] 11:56 AM [facility] REPOSITORY TYPE CODE TESTS RESULT OUT [...] By: #### L500.4050, L500.4100 #### [facility] Laboratory [address] [place], [address] HEMOGLOBIN A1C Collected: 09/24/2018 Status: F Source: [place] 11:56 AM [facility] REPOSITORY TYPE CODE TESTS RESULT OUT OF RANGE REFERENCE UNITS LAB L501.9985 4.2-6.3 % High HGB A1C 8.3 Performed By: #### L501.9985 #### [facility] Laboratory [address] [place], [address] CBC W/DIFF, AUTOMATED Collected: 09/02/2018 Status: F Source: [place] 11:29 AM [facility] REPOSITORY TYPE CODE TESTS RESULT OUT [...] Performed By: #### L100.0100 #### [facility] [address] [facility] [place], [address] IRON Collected: 09/02/2018 Status: F Source: [place] 11:29 AM [facility] REPOSITORY TYPE CODE TESTS RESULT OUT OF RANGE REFERENCE UNITS LAB L503.6150 50-170 ug/dL Low IRON 43 Performed By: #### L503.6150 #### [facility] [address] [place], [address] EMERGENCY DEPARTMENT Observed: 06/29/2018 Status: F Source: [place] SUMMARY 4:31 PM [facility] REPOSITORY [facility] Medical Records Department [address] [place] [address] Emergency Department Summary 06/29/18 1524 MR#: [id number] Acct: [id number] Name: DALIA MUSE Rep #: [id number] : 1940 77 From: Merna Bravo MD [...] Hypertension, established This note was generated with Saqina dictation software. It may contain incorrect words, [...] your Primary Care Provider. Call [facility] ([phone]) or report to the closest Emergency Room. Call 911 if necessary. 06/29/18 1631 <Electronically signed by Merna Bravo MD> Date Merna Bravo MD Cosigner Signature (If Indicated): Date CC: Moshe Matos MD BEDSIDE GLUCOSE Collected: 06/29/2018 Status: F Source: [place] 3:36 PM [facility] REPOSITORY TYPE CODE TESTS RESULT OUT OF REFERENCE UNITS RANGE LAB L501.080 70-110 mg/dL High BEDSIDE GLU 164 Result Comment: MANAGEMENT OF PATIENT CARE PER NURSING PROTOCOL Performed By: #### L501.080 #### [facility] Laboratory Point of Care [address] [place] [address] DISCHARGE INSTRUCTION Observed: 06/29/2018 Status: F Source: [place] 3:27 PM [facility] REPOSITORY [facility] Medical Records Department [address] [place] [address] Discharge Instruction 06/29/18 1527 MR#: [id number] Acct: [id number] Name: DALIA MUSE Rep #: [id number] : 1940 77 From: Merna Bravo MD [...] your Primary Care Provider. Call [facility] ([phone]) or report to the closest Emergency Room. Call 911 if necessary. 06/29/181526 <Electronically signed by Merna Bravo MD> Date Merna Bravo MD Cosigner Signature (If Indicated): Date CC: Moshe Matos MD 12 LEAD ELECTROCARDIOGRAM Observed: 04/10/2018 Status: F Source: [place] 2:29 PM [facility] REPOSITORY [facility] Cardiovascular Services [address] [place] [address] 12 Lead EKG 04/08/18 1552 MR#: [id number] Acct: [id number] Name: DALIA MUSE Rep #: [id number] : 1940 77 From: Johnny Michelle MD [...] ECG Confirmed by JOHNNY MICHELLE MD ([id number]), food expeditor KEVIN STALLWORTH (56) on 04/10/2018 2:29:11 PM Referred By: KATE Confirmed By:JOHNNY MICHELLE MD 04/10/18 1429 Date Johnny Michelle MD CC: Wang Mccoy DO; Moshe Matos MD Signed EMERGENCY DEPARTMENT Observed: 04/08/2018 Status: F Source: [place] SUMMARY 11:36 PM [facility] REPOSITORY [facility] Medical Records Department [address] [place] [address] Emergency Department Summary 04/08/18 1532 MR#: [id number] Acct: [id number] Name: DALIA MUSE Rep #: [id number] : 1940 77 From: Wang Mccoy DO [...] medical noncompliance This note was generated with u.sitation software. It may contain incorrect words, spelling, [...] your Primary Care Provider. Call [facility] ([phone]) or report to the closest Emergency Room. Call 911 if necessary. 04/08/18 2336 <Electronically signed by Wang Mccoy DO> Date Wang Mccoy DO Cosigner Signature (If Indicated): Date CC: Moshe Matos MD URINALYSIS, COMPLETE Collected: 04/08/2018 Status: F Source: [place] 3:55 PM [facility] REPOSITORY Order Comment: Order Date: 04/08/18 [...] Performed By: #### L400.0001 #### [facility] [address] [place], [address] CHEST 1 VIEW Observed: 04/08/2018 Status: F Source: [place] (PORTABLE) 3:33 PM [facility] REPOSITORY [facility] Imaging Services [address] [place] [address] Chest 1 View (Portable) MR#: [id number] Acct: [id number] Name: DALIA MUSE Rep #: [id number] : 1940 F 77 From: Sal Corral MD PCP: Moshe Matos MD Status: REG ER Study: Chest 1 View (Portable) Date of Exam: 04/08/18 Exam# [id number] Ordering Dr: Wang Mccoy DO STUDY: X-RAY [...] CC: Wang Mccoy DO; Moshe Matos MD Tray Packer: Signed CBC W/DIFF, AUTOMATED Collected: 04/08/2018 Status: F Source: [place] 3:30 PM [facility] REPOSITORY TYPE CODE TESTS RESULT OUT [...] Performed By: #### L100.0100 #### [facility] [address] [place], [address] BASIC METABOLIC Collected: 04/08/2018 Status: F Source: [place] PROFILE ([facility]) 3:30 PM [facility] REPOSITORY TYPE CODE TESTS RESULT OUT [...] By: #### L500.2500, L501.4010 #### [facility] [address] [place], [address] TROPONIN-I Collected: 04/08/2018 Status: F Source: [place] 3:30 PM [facility] REPOSITORY TYPE CODE TESTS RESULT OUT OF RANGE REFERENCE UNITS LAB L501.4010 <0.045 ng/mL Normal 0.016 TROPONIN-I Result Comment: TROPONIN-I EXPECTED VALUES <0.045 Negative 0.045 - 0.590 Consistent with Cardiac Damage > OR = 0.600 Critical Value Not every elevated troponin is indicative of WI. These values should be used with clinical judgement in examining the patient's clinical picture for diagnosis. To establish a diagnosis of WI versus myocardial injury, there must be a demonstrated rise and/or fall in the troponin values, in addition to ischemic symptoms, EKG changes, new regional wall motion abnormality, and/or angiographical evidence. PLEASE NOTE: REFERENCE RANGES EDITED 18 Performed By: #### L500.2500, L501.4010 #### [facility] [address] [place], [address] PROGRESS Observed: 12/25/2017 Status: COMPLETED Source: [place] 11:32 AM [facility] [place] REPOSITORY HNO ID: [id number] Author: Mary (López) Nidia Service: (none) Author [...] her HEP independently. Goals updated on 12/24/2017. [place] in home exercise program.--MET Patient will decrease [...] Patient education as noted. Billing: [facility]: Therapeutic Exercise (20471): 1:1 time: 38 minutes (3 units: 38-52 mins) Total time: 38 minutes Mary Jacob PT CNTHERAPY Observed: 12/24/2017 Status: COMPLETED Source: [place] 1:15 PM [facility] REPOSITORY OT/PT/Speech Visit (PTWS) DALIA MUSE ([id number]) 1940 F Date Time Provider Department 12/24/17 1:15 PM MARY JACOB (PT) PTWS Date Time Provider Department Center 12/24/2017 1:15 PM [id number], DIANA (PT)PTWS [facility] [place] Reason for Visit: PT Progress Note [...] her HEP independently. Goals updated on 12/24/2017. [place] in home exercise program.--MET Patient will decrease [...] Patient education as noted. Billing: [facility]: Therapeutic Exercise (13557): 1:1 time: 38 minutes (3 units: 38-52 mins) Total time: 38 minutes Mary Jacob PT PROGRESS Observed: 12/17/2017 Status: COMPLETED Source: [place] 9:45 AM [facility] REPOSITORY HNO ID: [id number] Author: Mary (Pt) Nidia Service: (none) Author [...] week ago. She is thinking about joining [employer]. (Encourage patient to look into a membership) [...] patient's response to intervention. Billing: [facility]: Therapeutic Exercise (38063): 1:1 time: 37 minutes (2 units: 23-37 mins) Manual Therapy (32364): 1:1 time: 8 minutes (1 unit: 8-22 mins) Total time: 45 minutes Mary Jacob PT CNTHERAPY Observed: 12/17/2017 Status: COMPLETED Source: [place] 9:15 AM [facility] REPOSITORY OT/PT/Speech Visit (PTWS) DALIA MUSE ([id number]) 1940 F Date Time Provider Department 12/17/17 9:15 AM MARY JACOB (PT) PTWS Date Time Provider Department Center 12/17/2017 9:15 AM [id number], DIANA (PT)PTWS [facility] [place] Reason for Visit: Physical Therapy [503] [...] week ago. She is thinking about joining [employer]. (Encourage patient to look into a membership) [...] patient's response to intervention. Billing: [facility]: Therapeutic Exercise (70945): 1:1 time: 37 minutes (2 units: 23-37 mins) Manual Therapy (81939): 1:1 time: 8 minutes (1 unit: 8-22 mins) Total time: 45 minutes Mary Jacob PT PROGRESS Observed: 2017 Status: COMPLETED Source: [place] 12:19 PM [facility] [place] REPOSITORY HNO ID: [id number] Author: Mary (López) Nidia Service: (none) Author [...] patient's response to intervention. Billing: [facility]: Therapeutic Exercise (38176): 1:1 time: 30 minutes (2 units: 23-37 mins) Manual Therapy (34022): 1:1 time: 11 minutes (1 unit: 8-22 mins) Total time: 41 minutes Mary Jacob PT CNTHERAPY Observed: 12/13/2017 Status: COMPLETED Source: [place] 12:30 PM [facility] REPOSITORY OT/PT/Speech Visit (PTWS) DALIA MUSE ([id number]) 1940 F Date Time Provider Department 12/13/17 12:30 PM MARY JACOB (PT) PTWS Date Time Provider Department Center 12/13/2017 12:30 PM [id number], DIANA (PT)PTWS [facility] NIKOLAY Reason for Visit: Physical Therapy [503] [...] patient's response to intervention. Billing: [facility]: Therapeutic Exercise (58790): 1:1 time: 30 minutes (2 units: 23-37 mins) Manual Therapy (62423): 1:1 time: 11 minutes (1 unit: 8-22 mins) Total time: 41 minutes Mary Jacob PT PROGRESS Observed: 12/09/2017 Status: COMPLETED Source: [place] 2:03 PM [facility] REPOSITORY HNO ID: [id number] Author: Mary Jacob Service: (none) Author Type: [...] patient's response to intervention. Billing: [facility]: Therapeutic Exercise (88979): 1:1 time: 25 minutes (2 units: 23-37 mins) Manual Therapy (81998): 1:1 time: 15 minutes (1 unit: 8-22 mins) Total time: 40 minutes Mary Jacob PT CNTHERAPY Observed: 12/09/2017 Status: COMPLETED Source: [place] 1:00 PM [facility] REPOSITORY OT/PT/Speech Visit (PTWS) DALIA MUSE ([id number]) 1940 F Date Time Provider Department 12/09/17 1:00 PM MARY JACOB (PT) PTWS Date Time Provider Department Center 12/09/2017 1:00 PM [id number], DIANA (PT)PTWS [facility] N[place]OLAY Reason for Visit: Physical Therapy [503] [...] patient's response to intervention. Billing: [facility]: Therapeutic Exercise (82636): 1:1 time: 25 minutes (2 units: 23-37 mins) Manual Therapy (09551): 1:1 time: 15 minutes (1 unit: 8-22 mins) Total time: 40 minutes Mary Jacob PT PROGRESS Observed: 12/06/2017 Status: COMPLETED Source: [place] 9:14 AM [facility] REPOSITORY O ID: [id number] Author: Mary Jacob Service: (none) Author Type: [...] patient's response to intervention. Billing: [facility]: Therapeutic Exercise (42850): 1:1 time: 33 minutes (2 units: 23-37 mins) Manual Therapy (95024): 1:1 time: 15 minutes (1 unit: 8-22 mins) Total time: 48 minutes Mary Jacob PT CNTHERAPY Observed: 12/03/2017 Status: COMPLETED Source: [place] 9:15 AM [facility] REPOSITORY OT/PT/Speech Visit (PTWS) DALIA MUSE ([id number]) 1940 F Date Time Provider Department 12/03/17 9:15 AM MARY JACOB (PT) PTWS Date Time Provider Department Center 12/03/2017 9:15 AM [id number], DIANA (PT)PTWS [facility] NIKOLAY Reason for Visit: Physical Therapy [503] [...] patient's response to intervention. Billing: [facility]: Therapeutic Exercise (37355): 1:1 time: 33 minutes (2 units: 23-37 mins) Manual Therapy (44508): 1:1 time: 15 minutes (1 unit: 8-22 mins) Total time: 48 minutes Mary Jacob PT PROGRESS Observed: 11/27/2017 Status: COMPLETED Source: [place] 4:00 PM [facility] REPOSITORY HNO ID: [id number] Author: Mary (Pt) Nidia Service: (none) Author [...] of Care: created on 11/26/17 through 02/05/18 [place] in home exercise program. Patient will decrease [...] visual and tactile cuing. Billing: [facility]: Evaluation - Moderate Complexity (07485) Therapeutic Exercise (14167): 1:1 time: 15 minutes (1 unit: 8-22 mins) Total time: 40 minutes Mary Jacob PT CNTHERAPY Observed: 11/26/2017 Status: COMPLETED Source: [place] 2:45 PM [facility] REPOSITORY OT/PT/Speech Visit (PTWS) DALIA MUSE ([id number]) 1940 F Date Time Provider Department 11/26/17 2:45 PM MARY JACOB (PT) PTWS Date Time Provider Department Center 11/26/2017 2:45 PM [id number], DIANA (PT)PTWS [facility] NIKOLAY Reason for Visit: PT Eval [747] [...] of Care: created on 11/26/17 through 02/05/18 [place] in home exercise program. Patient will decrease [...] visual and tactile cuing. Billing: [facility]: Evaluation - Moderate Complexity (94036) Therapeutic Exercise (73797): 1:1 time: 15 minutes (1 unit: 8-22 mins) Total time: 40 minutes Mary Jacob PT Letter Text SHOULDER MIN 2 VIEWS Observed: 11/19/2017 Status: F Source: [place] 10:33 AM [facility] REPOSITORY [facility] Imaging Services [address] [place] [address] Shoulder min 2 Views MR#: [id number] Acct: [id number] Name: DALIA MUSE Rep #: [id number] : 1940 F 76 From: Sal Corral MD PCP: Moshe Matos Status: REG CLI Study: Shoulder min 2 Views Date of Exam: 11/19/17 Exam# [id number] Ordering Dr: Moshe Matos MD STUDY: X-RAY [...] , Service support , CC: Moshe Matos Tray Packer: Signed ALLERGIES ALLERGIES DATE TYPE / CODE NAME / CODE REACTION SEVERITY SOURCE 10/23/2018 Drug Penicillins/V11220 Swelling Unknown [place] Allergy/416 0476(RXNORM) Community 965313([facility] ED CT) Repository 09/17/2008 Drug PENICILLINS [facility] Class/82219 [facility] 1003([facility] CT) ENCOUNTERS ENCOUNTERS ADMIT/DISCHARGE ACCOUNT ADMITTING ENCOUNTER LOCATION SOURCE NUMBER CLASS 10/23/2018 [id number] Ambulatory [facility] ing:HPRAD Repository 10/23/2018/10/23/19 [id number] Ambulatory BMSBuilding:B [place] [facility] Repository 09/24/2018 [id number] Ambulatory [facility] ing:BFHLAB Repository 09/02/2018 [id number] Ambulatory [facility] ing:BFHLAB Repository 06/29/2018/06/29/20 [id number] Emergency [address] ing:ED Repository 04/08/2018/04/08/20 [id number] Emergency [address] ing:ED Repository 12/24/2017/12/26/19 [id number] Ambulatory [address] Repository 12/17/2017/12/20/19 [id number] Ambulatory [address] Repository 12/13/2017/05/10 [id number] Ambulatory [address] Repository 12/09/2017/12/19/19 [id number] Ambulatory [address] Repository 12/03/2017/12/07/19 [id number] Ambulatory [address] Repository 11/28/2017 [id number] [facility] ing:PT Repository 11/26/2017/11/29/19 [id number] Ambulatory [address] Repository 11/19/2017 [id number] [facility] ing:MTRAD Repository PAYERS PAYERS ENCOUNTER GUARANTOR PAYER SUBSCRIBER SOURCE 10/23/2018 DALIA J Primary DALIA J [place] [id number] Insurance:MYCARE CRSC COFFMANDOB: Community RAMONA DUTTON *IN [facility] [id number] Number: Repository [id number]: [phone] [id number] [phone] () Date:[id number] CLAIMS DEPTPO [address] [place] [address]GX: 10/23/2018 Secondary NOT GIVENUNK [place] Insurance:SELF PAY [facility] Number: Effective Repository Date:2018-10-23 10/23/2018 DALIA J Primary DALIA J [place] [id number] Insurance:HUMANA MCR COFFMANDOB: Community RAMONA NEVESLOT HMO IN [facility] [id number] 08/07/18Policy Number: Repository [id number]: 234 [id number] [phone] () Date:2804-46-86[address] [place] [address]OJ: 10/23/2018 Secondary DALIA J [place] Insurance:MYCARE CRSC COFFMANDOB: Community *IN [facility] [id number] Hospital Number: Repository [id number] Date:1456-02-02XKCI CLAIMS DEPTPO [address] [place] [phone]: 10/23/2018 Tertiary NOT GIVENUNK [place] Insurance:SELF PAY [facility] Number: Effective Repository Date:2018-10-01 09/24/2018 DALIA J Primary DALIA J [place] [id number] Insurance:HUMANA MCR COFFMANDOB: Community [employer] HMO IN [place] [id number] 08/07/18Policy Number: Repository [id number]: [id number] [phone] () Date:8368-32-14IL [address] [place] [address]CI: 09/24/2018 Secondary DALIA J [place] Insurance:MYCARE CRSC COFFMANDOB: Community *IN [place] [id number] Hospital Number: Repository [id number] Date:2957-26-91GWHX [facility] [address] [place] [address]LX: 09/24/2018 Tertiary NOT GIVENUNK [place] Insurance:SELF PAY [facility] Number: Effective Repository Date:2018-09-24 09/02/2018 DALIA J Primary DALIA J [place] [id number] Insurance:HUMANA MCR COFFMANDOB: Community [employer] HMO IN [place] [id number] 08/07/18Policy Number: Repository [id number]: 234 [id number] [phone] () Date:7457-31-02IM [address] [address]AC: 09/02/2018 Secondary DALIA J [place] Insurance:MYCARE CRSC COFFMANDOB: Community *IN [facility] [id number] Hospital Number: Repository [id number] Date:0318-54-47YHJK CLAIMS DEPTPO [address] [address]JG: 09/02/2018 Tertiary NOT GIVENUNK [place] Insurance:SELF PAY [facility] Hospital Number: Effective Repository Date:2018-09-02 06/29/2018 DALIA J Primary DALIA J [place] [id number] Insurance:HUMANA [facility] COFFMANDOB: Community [employer] HMO IN [place] [id number] 08/07/18Policy Number: Repository [id number]: 234 [id number] [phone] () Date:0669-89-86AL [address] [place] [phone]: 06/29/2018 Secondary DALIA J [place] Insurance:MYCARE [facility] COFFMANDOB: Community *IN [facility] [id number] Hospital Number: Repository [id number] Date:1122-47-42UHAS CLAIMS DEPTPO [address] [place] [phone]: 06/29/2018 Tertiary NOT GIVENUNK [place] Insurance:SELF PAY [facility] Number: Effective Repository Date:2018-06-29 04/08/2018 DALIA J Primary Insurance:[facility] DALIA J [place] [id number] [facility]: COFFMANDOB: Community [employer] [id number] Date:3871-86-55HY BOX Repository [address]Xiu: [phone] [id number] GARCIA [phone] () [address]BB: 04/08/2018 Secondary NOT GIVENUNK [place] Insurance:SELF PAY [facility] Hospital Number: Effective Repository Date:2018-04-08 11/28/2017 DALIA [id number] Primary DALIA [place] [address] Insurance:[facility] COFFMANDOB: [address] HMO -OUT OF [id number] Hospital [address]Rke: 234) NETWORKPolicy Number: Repository [phone] () [id number] Date:3095-89-02WP [address] [place] [address]EZ: 11/28/2017 Secondary NOT GIVENUNK [place] Insurance:SELF PAY [facility] Hospital Number: Effective Repository Date:2017-11-21 11/19/2017 DALIA J Primary DALIA J [place] [id number] Insurance:HUMANA MCR COFFMANDOB: Community [employer] HMO IN [facility] [id number] 08/07/18Policy Number: Repository [id number]: (552) [id number] [phone] () Date:8186-26-04[address] [address], [place] [address]DK: 11/19/2017 Secondary DALIA J [place] Insurance:MYCARE CRSC COFFMANDOB: Community *IN [facility] [id number] Hospital Number: Repository [id number] Date:0182-26-41OFRZ CLAIMS DEPTPO [address], [place] [address]ID: 11/19/2017 Tertiary NOT GIVENUNK [place] [facility] Repository Date:2017-11-19
== END ==
PROVIDERS: Family Provider Family Medicine; PCP Family Medicine; Referring Provider Physician Assistant; Visit Provider Physician Assistant
DX: M25.511 Pain in right shoulder (principal)
CPT/HCPCS: 73030

== ENCOUNTER → 2019-01-06 13:35 | Outpatient (CLI) | payer MEDICARE, SELFPAY ==
--- NOTE | 2019-01-06 13:42 | RAD_ITS ---
STUDY: X-RAY - LUMBAR SPINE REASON FOR EXAM: Female, 78 years old. Chronic back pain. TECHNIQUE: 5 view(s) of the lumbar spine were obtained including oblique views. COMPARISON: None FINDINGS: There is straightening of the normal lumbar lordosis. There is no substantial scoliosis. There is a normal alignment of the vertebrae. There is multilevel endplate spondylosis of the lumbar vertebrae. There is multi-level degenerative disc disease with multi-level disc space narrowing. There is atherosclerotic calcification of the abdominal aorta without a demonstrated aneurysm. RAD/L/S Spine Min 4 Views IMPRESSION: Degenerative changes of the spine, as detailed above. Electronically Signed: Enoch Velez, at 9:24 EDT , Service support ,
--- NOTE | 2019-01-06 13:43 | RAD_ITS ---
STUDY: X-RAY - RIGHT ANKLE REASON FOR EXAM: Pain. TECHNIQUE: 3 view(s) of the ankle. COMPARISON: None. FINDINGS: There is osteopenia. Normal visualized distal tibia and fibula. Normal medial and lateral malleoli. Normal tibiotalar articulation and ankle mortise. There is a posterior calcaneal enthesophyte. The visualized subtalar, talonavicular, calcaneocuboid and tarsal articulations are normal. There is mild vascular calcification. RAD/Ankle min 3 Views IMPRESSION: Posterior calcaneal enthesophyte. Osteopenia. Electronically Signed: Saqib Almonte MD at 15:19 EDT Tel , Service support ,
== END ==
PROVIDERS: Family Provider Family Medicine; PCP Family Medicine; Referring Provider Family Medicine; Visit Provider Family Medicine
DX: M54.16 Radiculopathy, lumbar region (principal)
CPT/HCPCS: 72110; 73610

== ENCOUNTER 2019-01-23 10:00 | Outpatient (RCR) | payer MEDICARE, SELFPAY ==
--- NOTE | 2018-11-04 10:24 | HP.PTEVAL ---
Patient's Visit Information RAMIREZ MUSE is a 77 year old F referred to Physical Therapy by SOFYA Ji with a diagnosis of R shoulder pain. Date of Evaluation: 11/04/18 Physical Therapist: Virgil Borges PT, ATC - Visit Plan Frequency: 2-3x /Week Duration: 4-6 Weeks Plan: R shoulder strengthening (rot cuff), scap stab ex's, UBE, and HEP - Subjective Findings: Pt reports she had a R TSA performed about three years ago. Pt reports her shoulder was doing well since the DOS, however, has become sore again after the past 2 months. This pain had an insidiious onset as pt is not sure what caused her pain to occur. Pt is R hand dominant. Pt reports most of her pain is on the anterior aspect of her R shoulder. Pain is intermittent in nautre. Pt reports reaching behind her back causes her the most pain. Pt reports she has had xrays which revealed everything was good. Pt reports no sleep difficulty at this time. pt reports she can do all of her IADL's, she just has pain while performing them. 1/10 pain at rest, 7/10 pain at worst (when she reaches behind her back) - Pain R shoulder Pain Intensity (Out of 10): 1 Pain Intensity Range: 7 - Objective Neuro: B UE sensation is WNL to light touch. B bicepital reflex= 2/3. Palpation: Pt isvery sore on the anterior, posterior, and lateral aspects of her R shoulder. No obvious deformity present at this time. ROM: L shoulder flex= 125' abd= 100, IR WNL, ER= 45; R shoulder flex= 92, abd= 80, IR moderately limited, ER= 20. MMT: R shoulder is grossly 3-/5 throughout. L shoulder is 4/5. special tests: pos HK and empty can tests - Goals Goal 1:: Decrease R shoulder pain x 50% to aid with sleep Goal Time Frame: 4-6 Weeks Goal 2:: Increase R shoulder flex and abd ROM x 20 degrees to aid with overhead activity Goal Time Frame: 4-6 Weeks Goal 3:: Increase R shoulder strength x 1 grade to aid with IADL's Goal Time Frame: 4-6 Weeks Goal 4:: I with HEP Goal Time Frame: 4-6 Weeks - Rehabilitation Potential Physical Therapy Diagnosis: R shoulder pain, weakness, and limited ROM secondary to debiliation after R TSA Rehabilitation Potential: Good - Anticipated Interventions Patient/Client Instruction: Educate patient on: Condition, Plan of Care For the Purpose of:: To improve self management Therapeutic Exercise to Include: Strength training, Endurance training, Postural training, Active ROM, Scapular Strength/Stabilization For the Purpose of:: To decrease pain, To increase ROM, To improve muscle performance and motor function Cryotherapy (ice pack, ice massage): Yes For the Purpose of:: To decrease pain Thank you for the opportunity to evaluate your patient. For Medicare and Medicare HMO plans, please review the plan of care and approve it. It will need to be FAXED BACK to us at [phone] for Medicare purposes. For Medicare only, by signing this I certify the plan of care. Please let me know if there are questions or concerns regarding this plan of care. Physician Signature: Date:
--- NOTE | 2018-12-23 08:43 | HP.PTREVAL ---
SOFYA Ji, It has been my pleasure to treat RAMIREZ MUSE over the last 9 visits for R shoulder pain. Please see the progress note below for an update on the physical therapy plan of care! Subjective: I still hurt, but i am feeling better Objective/Function: R shoulder pain 02/13. R shoulder ROM: flex= 100, abd= 80, ER= 30, IR WNL compared bilat. R shoulder MMT: 4-/5 and painful. Pt is I with HEP Plan Plan: R shoulder strengthening (rot cuff), scap stab ex's, UBE, and HEP. 2 times per week for 4 more weeks Goals Goal 1:: Decrease R shoulder pain x 50% to aid with sleep Goal Time Frame: 4-6 Weeks Goal Progress: Progressing Goal 2:: Increase R shoulder flex and abd ROM x 20 degrees to aid with overhead activity Goal Time Frame: 4-6 Weeks Goal Progress: Progressing Goal 3:: Increase R shoulder strength x 1 grade to aid with IADL's Goal Time Frame: 4-6 Weeks Goal Progress: Progressing Goal 4:: I with HEP Goal Time Frame: 4-6 Weeks Goal Progress: Goal Met Anticipated Interventions Patient/Client Instruction: Educate patient on: Condition, Plan of Care For the Purpose of:: To improve self management Therapeutic Exercise to Include: Strength training, Endurance training, Postural training, Active ROM, Scapular Strength/Stabilization For the Purpose of:: To decrease pain, To increase ROM, To improve muscle performance and motor function Cryotherapy (ice pack, ice massage): Yes For the Purpose of:: To decrease pain Please do not hesitate to contact me at [phone] by phone or if you have questions or concerns regarding this new plan of care! Sincerely, Virgil Borges, PT, ATC
--- NOTE | 2019-01-23 13:50 | HP.PTDCSUM ---
HP - PT D/C Summary It has been my pleasure to treat RAMIREZ MUSE under orders from SOFYA Ji, for the diagnosis of R shoulder pain for a total of 16 visit(s). Discharge Date: 01/23/19 Please see the following information for a summary of their discharge status. - Subjective Subjective: Pt. reports I am doing really well. Pt. reports no issues with sleeping and no issues with daily activities. She reports being HEP compliant. Pt. reports no pain with sleeping. - Pain R shoulder Pain Intensity (Out of 10): 0 - Overall Improvement % Improvement: 95 - Objective Objective/Function: ROM: RUE- elbow full without issues. Shoulder-flexion 155deg, Abd 130deg, functional ER C4 with abherrant motion, functional IR R PSIS. MMT: R elbow- flexion 4+/5, ext 4+/5; R shoulder- flexion 4/5, abd 4/5, ext 4+/5, IR 4/5, ER 4-/5. - Goals Goal 1:: Decrease R shoulder pain x 50% to aid with sleep Goal Progress: Goal Met Goal 2:: Increase R shoulder flex and abd ROM x 20 degrees to aid with overhead activity Goal Progress: Goal Met Goal 3:: Increase R shoulder strength x 1 grade to aid with IADL's Goal Progress: Goal Met Goal 4:: I with HEP Goal Progress: Goal Met - Plan Plan: R shoulder strengthening (rot cuff), scap stab ex's, UBE, and HEP. - D/C Information Discharge Comments: Pt. progressed with PT as expected. Pt. improved her AROM and her strength. She reports having minimal pain with daily activities and is sleeping with minimal issues. Pt. is independent with her currentl HEP and will be DC to HEP at this point in time. If there are questions or concerns regarding this patient's physical therapy, please feel free to call me at [phone]. Thank you for the referral of this patient. Sincerely, Saqib Hatch DPT
== END 2019-01-23 19:00 | disposition home or self-care (01) ==
LOC: PT 10:00
PROVIDERS: Family Provider Family Medicine; PCP Family Medicine; Referring Provider Physician Assistant; Visit Provider Physician Assistant
DX: Z98.890 Other specified postprocedural states (principal)
CPT/HCPCS: 97110; 97161; 97530

== ENCOUNTER → 2019-04-10 09:44 | Outpatient (CLI) | payer MEDICARE, MEDICAID, SELFPAY ==
[2019-04-10 12:40] LABS: Absolute Lymphocyte Count 1.91 X10^3/ul (0.83-4.51); Absolute Neutrophil Count 3.3 X10^3/uL (2.0-7.7); Basophil# 0.02 X10^3/uL; Basophil% 0.3 % (0-1); Eosinophil# 0.19 X10^3/uL; Eosinophils% 3.3 % (0-5); Hematocrit 34.1 % (37-47); Hemoglobin 10.6 g/dl (12.0-15.0); Lymphocyte # 1.91 X10^3/ul (4.0); Mean Corp Hgb Conc 31.1 g/gl (32-36); Mean Corpuscular Volume 93.4 fL (81-99); Mean Platelet Vol. 12.4 fl (6.2-12.0); Monocyte# 0.31 X10^3/uL; Monocyte% 5.4 % (0-10); Neutrophil # 3.34 X10^3/uL (2.7-7.7); Neutrophil % 57.7 % (47-70); Platelet Count 166 K/mm3 (150-450); RBC Distribution Width CV 13.4 % (11.6-14.6); Red Blood Count 3.65 M/mm3 (4.2-5.4); White Blood Count 5.8 K/mm3 (4.4-11.0)
[2019-04-10 12:51] LABS: POSITIVE COUNT NO; POSITIVE DIFFERENTIAL NO; POSITIVE MORPHOLOGY NO
[2019-04-10 13:16] LABS: Vitamin B12 179 pg/mL (211-911)
[2019-04-10 13:43] LABS: AST(SGOT) 14 U/L (15-37); Alanine Aminotransfer ALT/SGPT 19 U/L (13-56); Albumin, Serum 3.7 g/dL (3.2-5.0); Alkaline Phosphatase 61 U/L (45-117); Anion Gap 9 (5-15); BUN 34 mg/dL (7-18); BUN/Creat Ratio 20.1 RATIO (10-20); Calcium,Total 9.1 mg/dL (8.5-10.1); Chloride 110 mmol/L (98-107); Creatinine, Serum 1.69 mg/dL (0.55-1.02); EST Glomerular Filtration Rate 31 mL/min (>60); Est Glom Filt Rate - Afr Amer 38 mL/min (>60); Ferritin 20 ng/mL (8-252); Globulin 3.7 g/dL (2.2-4.2); Glucose 184 mg/dL (74-106); Iron 44 ug/dL (50-170); Potassium 4.6 mmol/L (3.5-5.1); Protein, Total 7.4 g/dL (6.4-8.2); Sodium Level 142 mmol/L (136-145); Thyroid Stim Hormone (TSH) 0.62 uIU/mL (0.358-3.74)
[2019-04-10 13:55] LABS: Hemoglobin A1c 8.4 % (4.2-6.3)
== END ==
PROVIDERS: Family Provider Family Medicine; PCP Family Medicine; Visit Provider Family Medicine
DX: E11.65 Type 2 diabetes mellitus with hyperglycemia (principal); E78.5 Hyperlipidemia, unspecified; E11.21 Type 2 diabetes mellitus with diabetic nephropathy; I10 Essential (primary) hypertension
CPT/HCPCS: 36415; 80053; 82607; 82728; 83036; 83540; 84443; 85025

== ENCOUNTER 2019-04-28 21:42 | Observation (INO) | payer MEDICARE, MEDICAID, SELFPAY ==
[2019-04-15 13:50] VITALS: BMI 25.8
[2019-04-28 21:44] VITALS: BP 204/108; PULSE 111; RESP 18; TEMP 36.8; O2SAT 100; BMI 26.9
[2019-04-28 21:46] VITALS: PULSE 117; RESP 20; O2SAT 100
--- NOTE | 2019-04-28 21:48 | ED.RN ---
'S OFFICE AT BEDSIDE.
--- NOTE | 2019-04-28 22:14 | EKG12_ITS ---
Test Reason : GENERAL ILLNESS Blood Pressure : / mmHG Vent. Rate : 102 BPM Atrial Rate : 102 BPM P-R Int : 234 ms QRS Dur : 092 ms QT Int : 374 ms P-R-T Axes : 044 -26 123 degrees QTc Int : 487 ms Sinus tachycardia with 1st degree A-V block T wave abnormality, consider lateral ischemia Abnormal ECG Confirmed by DM EPPS ([id number]), science editor KEVIN STALLWORTH ([id number]) on 04/30/2019 10:12:12 AM Referred By: DANIEL Confirmed By:DM EPPS
--- NOTE | 2019-04-28 22:15 | ED.VIS.GEN ---
History of Present Illness Chief Complaint: General Illness Informant: Patient Onset: Hours - 1 Context: Gradual Onset - about 5-10 min after smoking a hand-rolled cigarette from a neighbor for the first time Timing: Intermittent, Lasts - about 5 min Quality: blurry vision, lightheadedness Location: generalized Current Severity: gone Maximum Severity: Mild Worsened by: nothing Relieved by: nothing; spont resolved a short time after Associated Symptoms: near-syncopal Narrative: Patient states she feels fine and asymptomatic now. No recent illnesses or injuries. After she is smoked a cigarette that was given to her by her neighbor, she had the above symptoms that lasted 5-10 minutes. She had throat burning for just a couple minutes after smoking. She denies any chest discomfort, shortness of breath, palpitations, or other systemic symptoms other than lightheadedness and blurry vision globally. Blood sugar was normal per EMS. - Past Medical History (1) Hypertension Status: Chronic (2) Hyperlipidemia Status: Chronic (3) COPD (chronic obstructive pulmonary disease) Status: Chronic (4) Diabetes mellitus Status: Chronic Past Medical History - Allergies and Home Meds Allergies/Adverse Reactions: Allergies Penicillins [PCN] Allergy (Verified 04/15/19 13:47) Swelling Primary Care Physician: Moshe Matos MD [Primary Care Provider] - Lives: Alone Smoking Status: Current every day smoker - 0.5 ppd, down from 3 Review of Systems General: Denies: Chills, Fever, Sweats Eyes: Reports: Blurred Vision - bilaterally - resolved now. Denies: Diplopia ENT: Denies: Bilateral ear pain, Rhinorrhea, Sore throat Cardiovascular: Denies: Chest pain, Palpitations, Heart racing Respiratory: Denies: Dyspnea, Cough, Dyspnea on exertion Gastrointestinal: Denies: Abdominal pain, Nausea, Vomiting, Diarrhea, Melena, Hematochezia Genitourinary: Denies: Dysuria, Hematuria, Frequency Musculoskeletal: Denies: Back pain, Extremity Pain Skin: Denies: Rash, Wounds Neurological: Denies: Headache, Weakness, Parasthesia, Numbness Physical Exam Vital Signs/Narrative: Vital Signs Temp Pulse Resp BP Pulse Ox 04/28/19 21:46 117 H 20 H 100 04/28/19 21:44 98.3 F 111 H 18 204/108 H 100 Inital Vital Signs reviewed: Yes General: Well nourished, Well developed, No Acute Distress - well-appearing, conversive, pleasant Head: Normocephalic, Atraumatic Eyes: Perrl, EOMI ENT: Moist mucous membranes, No rhinorrhea Neck: Supple, Nontender Cardiovascular: Regular rate, Regular rhythm, No murmurs Respiratory: No distress, CTA bilaterally, Chest nontender Abdomen: Soft, Nontender, Nondistended, Normal bowel sounds Back: Nontender, Normal Inspection Extremities: Nontender, No edema Skin: Normal color, No rash, No Trauma Neurological: Alert, Oriented x3, Cranial nerves II-XII grossly intact, Normal Strength, Normal Sensation Psychological: Normal affect, Normal Mood Diagnostic/Tx/Re-eval Laboratory Results 04/28/19 04/28/19 04/28/19 22:25 22:25 22:30 WBC 7.7 RBC 3.67 L Hgb 11.1 L Hct 34.8 L MCV 94.8 MCH 30.2 MCHC 31.9 L RDW Std Deviation 46.5 H RDW Coeff of Hoang 13.5 Plt Count 175 MPV 11.4 Immature Gran % (Auto) 0.300 Neut % (Auto) 63.1 Lymph % (Auto) 27.8 Parke % (Auto) 5.7 Eos % (Auto) 2.7 Baso % (Auto) 0.4 Absolute Neuts (auto) 4.9 Absolute Lymphs (auto) 2.14 Absolute Nucleated RBC 0.00 Nucleated RBC % 0 Sodium 139 Potassium 5.1 Chloride 109 H Carbon Dioxide 26.0 Anion Gap 4 L BUN 25 H Creatinine 2.04 H Estim Creat Clear Calc 21.62 Est GFR (MDRD) Af Amer 30 L Est GFR (MDRD) Non-Af 25 L BUN/Creatinine Ratio 12.3 Glucose 230 H Calcium 9.4 Troponin I 0.058 H Urine Opiates Screen NEGATIVE Urine Methadone Screen NEGATIVE Ur Barbiturates Screen NEGATIVE Ur Phencyclidine Scrn NEGATIVE Ur Amphetamines Screen NEGATIVE U Methamphetamin-MDMA NEGATIVE U Benzodiazepines Scrn NEGATIVE Urine Cocaine Screen NEGATIVE U Cannabinoids Screen NEGATIVE Ur Drug Screen Comment - Rhythm Strip Rhythm Strip: Sinus Tach Rate: 105 Ectopy: None - EKG Initial EKG Interpretation: No Acute Injury Pattern, Sinus Tachycardia, LAFB, Inverted T-Waves - laterally Prior: Unchanged - Medical Decision Making Patient is feeling better here in the emergency department, she was severely hypertensive initially. Labetalol ordered, pressure is down to 190 prior to that being given. She states she has been compliant with her medications, and took her blood pressure medication this morning. Her troponin is elevated and this is the first time that has been the case here, her kidneys are also down and function as well. It is unknown if she was having anginal equivalents and unstable angina, or if this was a result of her severe hypertension, or if this is an incidental finding related to slightly worse chronic renal insufficiency. In addition, her drug screen is negative; it is unknown how sensitive this test is in this scenario where she could have inhaled a drug only 1-2 hours prior to obtaining the specimen. I think it is worth admitting her to observation for further risk stratification. ED Disposition - Plan for ED Patient: Disposition: Acute Care Hospital [facility] Diagnosis: Near syncope, JODI (acute kidney injury), Hypertensive urgency, Elevated troponin Referrals: Moshe Matos MD [Primary Care Provider] -
[2019-04-28 22:34] LABS: Absolute Lymphocyte Count 2.14 X10^3/uL (0.83-4.51); Absolute Neutrophil Count 4.9 X10^3/uL (2.0-7.7); Basophil# 0.03 X10^3/uL; Basophil% 0.4 % (0-1); Eosinophil# 0.21 X10^3/uL; Eosinophils% 2.7 % (0-5); Hematocrit 34.8 % (37-47); Hemoglobin 11.1 g/dL (12.0-15.0); Lymphocyte # 2.14 X10^3/ul (4.0); Lymphocyte % 27.8 % (19-41); Mean Corp Hgb Conc 31.9 g/dL (32-36); Mean Corpuscular Hgb 30.2 pg (27.0-32.0); Mean Corpuscular Volume 94.8 fL (81-99); Mean Platelet Vol. 11.4 fl (6.2-12.0); Monocyte# 0.44 X10^3/uL; Monocyte% 5.7 % (0-10); NRBC Flagged by Analyzer 0 % (0-5); Neutrophil # 4.87 X10^3/uL (2.7-7.7); Neutrophil % 63.1 % (47-70); Platelet Count 175 K/mm3 (150-450); RBC Distribution Width CV 13.5 % (11.6-14.6); RBC Distribution Width SD 46.5 fl (35.1-43.9); Red Blood Count 3.67 M/mm3 (4.2-5.4); White Blood Count 7.7 K/mm3 (4.4-11.0)
[2019-04-28 22:50] LABS: Anion Gap 4 (5-15); BUN 25 mg/dL (7-18); BUN/Creat Ratio 12.3 RATIO (10-20); Calcium,Total 9.4 mg/dL (8.5-10.1); Chloride 109 mmol/L (98-107); Creatinine, Serum 2.04 mg/dL (0.55-1.02); EST Glomerular Filtration Rate 25 mL/min (>60); Est Glom Filt Rate - Afr Amer 30 mL/min (>60); Estimated Creatinine Clearance 21.62 ml/min; Glucose 230 mg/dL (74-106); Potassium 5.1 mmol/L (3.5-5.1); Sodium Level 139 mmol/L (136-145)
[2019-04-28 23:06] LABS: Amphetamine Urine VISTA NEGATIVE (<1000 ng/mL); Barbiturate Urine VISTA NEGATIVE (< 200 ng/mL); Benzodiazepine Urine VISTA NEGATIVE (< 200 ng/mL); Cocaine Urine VISTA NEGATIVE (< 300 ng/mL); Ecstacy Urine VISTA NEGATIVE (< 500 ng/mL); Methadone Urine VISTA NEGATIVE (< 300 ng/mL); PCP Urine VISTA NEGATIVE (< 25 ng/mL); THC Urine VISTA NEGATIVE (< 50 ng/mL); Vista UDS pH Range 5
[2019-04-28 23:27] VITALS: BP 187/0; PULSE 96; RESP 18; O2SAT 100
[2019-04-28 23:34] VITALS: BP 111/61; PULSE 80; RESP 19; TEMP 36.7; O2SAT 100
--- NOTE | 2019-04-28 23:39 | PCM.HP.STD ---
Problem List (1) Hypertension Status: Chronic (2) Hyperlipidemia Status: Chronic (3) COPD (chronic obstructive pulmonary disease) Status: Chronic (4) Hypertensive urgency Status: Acute (5) Elevated troponin Status: Acute History of Present Illness Date of Admission: 04/28/19 Chief Complaint: Blurry vision and lightheadedness The patient is a 78 year old F with PMH as below who presents with blurry vision and lightheadedness after smoking handrolled cigarette that was given to her by a neighbor. She said that it lasted for about 5 minutes and started about an hour ago. She denies any current symptoms now but at the time she felt like she was going to pass out. She denies any chest pain or shortness of breath at the moment. In the ER she was found to have a significantly elevated blood pressure to systolic of 204 with a slightly elevated creatinine and a slightly elevated troponin to 0.058. EKG is unremarkable from baseline. She states that she has taken her blood pressure medications today. After treatment with her blood pressure she says she feels back to normal and is currently denying any other symptoms. 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 lesion right lateral eyebrow Neoplasm of skin of forehead (Chronic) 7 mm cutaneous horn lesion central forehead Neoplasm of skin of right lateral forehead (Chronic) 2.1 cm erythematous lesion right lateral forehead Neoplasm of skin of left lateral forehead (Chronic) 4 cm lesion left lateral forehead by hairline Neoplasm of skin of nose (Chronic) 7 mm lesion nasal dorsum at nasal tip Right carpal tunnel syndrome (Chronic) Smoker (Chronic) F17.200 Chronic neck pain (Chronic) M54.2 Left carpal tunnel syndrome (Chronic) G56.02 Medical History: Medical History (Last Updated 04/15/19 @ 13:22 by Elin Sierra) Diabetes E11.9 Hyperlipidemia E78.5 Osteoporosis M81.0 COPD (chronic obstructive pulmonary disease) J44.9 High blood pressure I10 Allergies Penicillins [PCN] Allergy (Verified 04/15/19 13:47) Swelling Home Medications: Ambulatory Orders Medication Instructions Recorded Glimepiride [Amaryl] 4 mg PO BID 03/22/15 metFORMIN HCl [Glucophage] 1,000 mg PO DAILY 03/22/15 Atorvastatin Calcium [Lipitor] 40 mg PO QHS 02/26/17 Naproxen 500 mg PO DAILY 02/26/17 Lisinopril [Zestril] 1 mg PO DAILY 06/29/18 hydroCHLOROthiazide 1 tab PO DAILY 06/29/18 [Hydrochlorothiazide] Surgical History: Surgical History (Last Updated 04/15/19 @ 13:26 by Elin Sierra) History of hysterectomy Z90.710 History of right knee surgery Z98.890 Status post right foot surgery Z98.890 h/o right shoulder replacement Lives: Alone Smoking Status: Current every day smoker - 0.5 ppd, down from 3 Tobacco Use: Cigarettes Alcohol: None Drugs: None - *Family History Maternal Family History: Family History (Last Updated 04/15/19 @ 13:26 by Elin Sierra) Sister Arthritis Mother Breast cancer Cancer Review of Systems Constitutional: Denies: Chills, Fever, Weight Change Eyes: Reports: Blurred vision HEENT: Denies: Head Aches, Sinus Congestion, Sinus Drainage Cardiovascular: Reports: Light Headedness. Denies: Chest Pain, Palpitations Respiratory: Denies: Cough, Shortness of Breath, Shortness of breath at rest, Sputum production Gastrointestinal: Denies: Abdominal Pain, Nausea, Vomiting Genitourinary: Denies: Dysuria Musculoskeletal: Denies: Joint Pain, Joint Tenderness Skin: Denies: Rash, Wounds Neurological: Denies: Numbness, Tingling, Focal weakness Psychiatric: Denies: Anxiety, Depression Hematologic/ Lymphatic: Denies: Easy Bruising, Easy Bleeding VTE Information - Inpt Only VTE Present on Admission: No Patient Problems: Active and Suspected Problems (Last Updated 04/15/19 @ 13:22 by Elin Sierra) Near syncope (Acute) JODI (acute kidney injury) (Acute) Hypertensive urgency (Acute) Elevated troponin (Acute) - Physical Exam General: Alert, Oriented x3, Cooperative, No apparent distress HEENT: Atraumatic, PERRLA, EOMI, Normocephalic Oral: Moist Mucosa Neck: Supple, No JVD Lungs: Clear to auscultation, Normal air movement, No rhonchi, No wheeze, No rales, Diminished Cardiovascular: Regular rate, Regular Rhythm, Normal S1, Normal S2, No murmurs Abdomen: Soft, Non Tender, Non-Distended, No Hepato-splenomegaly Extremities: No edema, Capillary Refill Less than 3 Seconds Skin: No rashes, No breakdown Neurological: Neuro grossly intact, Sensory exam intact to light touch and pain Psych/Mental Status: Normal Affect, Appropriate Vital Signs Temp Pulse Resp BP Pulse Ox 98.1 F 80 19 H 111/61 100 04/28/19 23:34 04/28/19 23:34 04/28/19 23:34 04/28/19 23:34 04/28/19 23:34 Oxygen Delivery Method Room Air Weight: 166 lb 14.239 oz Body Mass Index (BMI) 26.9 Finger Stick Blood Glucose 164 Laboratory Tests Past 24 Hrs 04/28/19 04/28/19 04/28/19 22:25 22:25 22:30 WBC 7.7 RBC 3.67 L Hgb 11.1 L Hct 34.8 L MCV 94.8 MCH 30.2 MCHC 31.9 L RDW Std Deviation 46.5 H RDW Coeff of Hoang 13.5 Plt Count 175 MPV 11.4 Immature Gran % (Auto) 0.300 Neut % (Auto) 63.1 Lymph % (Auto) 27.8 Hartley % (Auto) 5.7 Eos % (Auto) 2.7 Baso % (Auto) 0.4 Absolute Neuts (auto) 4.9 Absolute Lymphs (auto) 2.14 Absolute Nucleated RBC 0.00 Nucleated RBC % 0 Sodium 139 Potassium 5.1 Chloride 109 H Carbon Dioxide 26.0 Anion Gap 4 L BUN 25 H Creatinine 2.04 H Estim Creat Clear Calc 21.62 Est GFR (MDRD) Af Amer 30 L Est GFR (MDRD) Non-Af 25 L BUN/Creatinine Ratio 12.3 Glucose 230 H Calcium 9.4 Troponin I 0.058 H Urine Opiates Screen NEGATIVE Urine Methadone Screen NEGATIVE Ur Barbiturates Screen NEGATIVE Ur Phencyclidine Scrn NEGATIVE Ur Amphetamines Screen NEGATIVE U Methamphetamin-MDMA NEGATIVE U Benzodiazepines Scrn NEGATIVE Urine Cocaine Screen NEGATIVE U Cannabinoids Screen NEGATIVE Ur Drug Screen Comment Assessment/Plan All Active Problems (Last Updated 04/15/19 @ 13:22 by Elin Sierra) Near syncope (Acute) JODI (acute kidney injury) (Acute) Hypertensive urgency (Acute) Elevated troponin (Acute) 1. Hypertensive urgency/hyperlipidemia -Slight increase in her creatinine from 1.69-2.04 today -Troponin is also slightly elevated to 0.058 which can be related to her kidney function -Denying chest pain -We will provide labetalol 20 mg every 4 hours IV and will restart her home blood pressure medications may have to add Norvasc p.o. as well to get under better control -States that her blood pressures sit in a predefined range by her doctor though she is not sure exactly how high it supposed to be. She has had blood pressures as high as systolics 234 in the past. -Continue with statin 2. DM 2 -She is on metformin at home which we will hold as well as her glimepiride -We will provide sliding scale insulin as well as Accu-Cheks before meals at bedtime 3. CKD 3 -Recent creatinine is around 1.69, she is currently at 2.04 -Continue to monitor does not meet criteria for JODI 4. Tobacco abuse -Smokes approximately 3 packs of cigarettes per day since she was 19 years old, though she is cut down to a pack a day -Provide a nicotine patch and she says that she would like to quit so we will plan on discharging her on the nicotine patch DVT: heparin Code Visit OBSV E&M: 18596 Initial observation care L2
[2019-04-29] VITALS (9 sets, daily range): BP systolic 143–183; BP diastolic 67–88; PULSE 66–83; RESP 16–18; TEMP 36.4–36.8; O2SAT 99–100; BMI 26.3
[2019-04-29 05:07] LABS: Absolute Lymphocyte Count 2.08 X10^3/uL (0.83-4.51); Absolute Neutrophil Count 3.6 X10^3/uL (2.0-7.7); Basophil# 0.02 X10^3/uL; Basophil% 0.3 % (0-1); Eosinophil# 0.11 X10^3/uL; Eosinophils% 1.8 % (0-5); Hematocrit 30.2 % (37-47); Hemoglobin 9.5 g/dL (12.0-15.0); Lymphocyte # 2.08 X10^3/ul (4.0); Lymphocyte % 33.5 % (19-41); Mean Corp Hgb Conc 31.5 g/dL (32-36); Mean Corpuscular Hgb 29.8 pg (27.0-32.0); Mean Corpuscular Volume 94.7 fL (81-99); Mean Platelet Vol. 11.6 fl (6.2-12.0); Monocyte# 0.42 X10^3/uL; Monocyte% 6.8 % (0-10); NRBC Flagged by Analyzer 0 % (0-5); Neutrophil # 3.55 X10^3/uL (2.7-7.7); Neutrophil % 57.3 % (47-70); Platelet Count 143 K/mm3 (150-450); RBC Distribution Width CV 13.5 % (11.6-14.6); Red Blood Count 3.19 M/mm3 (4.2-5.4); White Blood Count 6.2 K/mm3 (4.4-11.0)
[2019-04-29 05:24] LABS: Anion Gap 7 (5-15); BUN 28 mg/dL (7-18); BUN/Creat Ratio 14.9 RATIO (10-20); Calcium,Total 8.9 mg/dL (8.5-10.1); Chloride 110 mmol/L (98-107); Creatinine, Serum 1.88 mg/dL (0.55-1.02); EST Glomerular Filtration Rate 28 mL/min (>60); Est Glom Filt Rate - Afr Amer 33 mL/min (>60); Estimated Creatinine Clearance 23.46 ml/min; Glucose 180 mg/dL (74-106); Potassium 4.7 mmol/L (3.5-5.1); Sodium Level 143 mmol/L (136-145)
[2019-04-29 06:50] LABS: Bedside Glucose 146 mg/dL (70-110)
[2019-04-29 11:20] LABS: Iron 40 ug/dL (50-170); Iron Binding Capacity,Total 308 ug/dL (250-450)
[2019-04-29 11:40] LABS: Bedside Glucose 300 mg/dL (70-110)
[2019-04-29] MEDS: Lisinopril 20 MG Tablet PO (12:23)
--- NOTE | 2019-04-29 12:34 | DCINST_ITS ---
- Discharge Diagnoses Current Active Problems: Current Active and Chronic Problems (Last Updated 04/15/19 @ 13:22 by Elin Sierra) Near syncope (Acute) JODI (acute kidney injury) (Acute) Hypertensive urgency (Acute) Elevated troponin (Acute) You will use the following diet at home:: Calorie/Carbohydrate Controlled (spe cify 1200, 1400, etc) - 1800 tamara Your food should be the consistency of: Regular Your liquids should be the consistency of: Regular/Thin Discharge Activity: Return to Normal Activity Weight Bearing Status: Full weight bearing Allergies/Adverse Reactions: Allergies Penicillins [PCN] Allergy (Verified 04/15/19 13:47) Swelling Medications to take at Discharge Glimepiride [Amaryl] 4 mg PO DAILY 03/22/15 metFORMIN HCl [Glucophage] 1,000 mg PO BID 03/22/15 Atorvastatin Calcium [Lipitor] 40 mg PO QHS 02/26/17 Lisinopril [Zestril] 1 mg PO DAILY 06/29/18 hydroCHLOROthiazide [Hydrochlorothiazide] 1 tab PO DAILY 06/29/18 Omeprazole 20 mg PO DAILY 04/29/19 Primary Care Physician: Moshe Matos MD [Primary Care Provider] - Please follow up with your Primary Care Physician in: in one week Test Results: Test results from this visit will be discussed in further detail at your follow- up appointment, if applicable.
--- NOTE | 2019-04-30 09:31 | PCM.DC.SUM ---
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 - Secondary Discharge Diagnosis Chronic Problems (Last Updated 04/15/19 @ 13:22 by Elin Sierra) Hypertension (Chronic) Hyperlipidemia (Chronic) COPD (chronic obstructive pulmonary disease) (Chronic) History of carpal tunnel surgery (Chronic) bilateral Diabetes mellitus (Chronic) Paresthesia of left arm (Chronic) extending from the wrist to the elbow 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 lesion right lateral eyebrow Neoplasm of skin of forehead (Chronic) 7 mm cutaneous horn lesion central forehead Neoplasm of skin of right lateral forehead (Chronic) 2.1 cm erythematous lesion right lateral forehead Neoplasm of skin of left lateral forehead (Chronic) 4 cm lesion left lateral forehead by hairline Neoplasm of skin of nose (Chronic) 7 mm lesion nasal dorsum at nasal tip Right carpal tunnel syndrome (Chronic) Smoker (Chronic) F17.200 Chronic neck pain (Chronic) M54.2 Left carpal tunnel syndrome (Chronic) G56.02 Hospital Course and Treatment Operations: None Procedures: None Summary of Care Provided: The patient is a 78 year old F was seen in the emergency room at [facility] with a chief complaint of blurry vision and lightheadedness after smoking a rolled cigarette from her neighbor. She felt the cigarette was marijuana. Evaluation in the emergency room noted the patient to be hypertensive, labetalol was given, labs revealed a slightly elevated troponin, EKG showed no injury pattern. Patient's creatinine was slightly elevated, patient's tox screen was negative. Blood sugar was elevated at 230. Patient was placed in observation status on PCU and monitored, serial enzymes were obtained and these were elevated in the intermediate range-this was not felt to be secondary to cardiac etiology. Patient's repeat creatinine was improved at 1.88. On 04/29/2019, patient was seen and examined: On examination she appeared in good health and spirits. Vital signs as documented. Skin warm and dry and without overt rashes. Neck without JVD. Lungs clear. Heart exam notable for regular rhythm, normal sounds and absence of murmurs, rubs or gallops. Abdomen unremarkable and without evidence of organomegaly, masses, or abdominal aortic enlargement. Extremities nonedematous. Neuro: Cranial nerves II through XII are grossly intact, no focal motor deficits were noted, sensation to light touch and pinprick is intact. Psych: Patient is alert and oriented x3, she does not appear anxious or depressed On 04/29/2019, patient was seen and examined felt to be in stable condition discharge home - Physical Exam Vital Signs Temp Pulse Resp BP Pulse Ox 98.0 F 72 18 147/77 H 99 04/29/19 12:22 04/29/19 12:22 04/29/19 12:22 04/29/19 12:22 04/29/19 12:22 Oxygen Delivery Method Room Air Weight: 73.9 kg Body Mass Index (BMI) 26.3 Finger Stick Blood Glucose 164 Intake and Output for Last 24 Hours 04/28/19 04/29/19 04/30/19 23:59 23:59 23:59 Intake Total 620 / 620 Balance 620 / 620 Laboratory Tests Past 24 Hrs 04/29/19 04:30 Iron 40 L TIBC 308 Iron Saturation 13.0 L POC Glucose 04/29/19 11:34 POC Glucose 300 H Discharge Activity: Return to Normal Activity Weight Bearing Status: Full weight bearing Home Medications: Medications to take at Discharge Glimepiride [Amaryl] 4 mg PO DAILY 03/22/15 metFORMIN HCl [Glucophage] 1,000 mg PO BID 03/22/15 Atorvastatin Calcium [Lipitor] 40 mg PO QHS 02/26/17 Lisinopril [Zestril] 1 mg PO DAILY 06/29/18 hydroCHLOROthiazide [Hydrochlorothiazide] 1 tab PO DAILY 06/29/18 Omeprazole 20 mg PO DAILY 04/29/19 Primary Care Physician: Moshe Matos MD [Primary Care Provider] - Please follow up with your Primary Care Physician in: in one week Disposition: Home Minutes spent on discharge:: 32 Patient Condition:: Stable Medical Necessity - Tobacco Use Smoking Status: Current every day smoker Tobacco Use: Cigarettes Meaningful Use Info Meaningful Use Diagnoses (Choose all that apply): None applicable Code Visit OBSV E&M: 74548 Observation care discharge
== END 2019-04-29 12:35 | disposition home or self-care (01) ==
LOC: ED 23:23 → PCU 23:52
PROVIDERS: Admitting Provider Family Medicine; Emergency Provider Emergency Medicine; Family Provider Family Medicine; PCP Family Medicine; Visit Provider Internal Medicine
DX: I16.0 Hypertensive urgency (principal); I12.9 Hypertensive chronic kidney disease with stage 1 through stage 4 chronic kidney disease, or unspecified chronic kidney disease; J44.9 Chronic obstructive pulmonary disease, unspecified; E11.22 Type 2 diabetes mellitus with diabetic chronic kidney disease; N18.4 Chronic kidney disease, stage 4 (severe); R79.89 Other specified abnormal findings of blood chemistry; E78.5 Hyperlipidemia, unspecified; Z79.899 Other long term (current) drug therapy; Z79.84 Long term (current) use of oral hypoglycemic drugs; F17.210 Nicotine dependence, cigarettes, uncomplicated
CPT/HCPCS: 36415; 80048; 80307; 82962; 83540; 83550; 84484; 85025; 93005; 96374; 96376; 99218; 99285; A4216; G0378

== ENCOUNTER → 2019-05-18 11:21 | Outpatient (CLI) | payer MEDICARE, SELFPAY ==
[2019-04-29 00:33] VITALS: BMI 26.3
[2019-05-18 15:28] LABS: Anion Gap 8 (5-15); BUN 31 mg/dL (7-18); BUN/Creat Ratio 17.8 RATIO (10-20); Calcium,Total 9.9 mg/dL (8.5-10.1); Chloride 108 mmol/L (98-107); Creatinine, Serum 1.74 mg/dL (0.55-1.02); EST Glomerular Filtration Rate 30 mL/min (>60); Est Glom Filt Rate - Afr Amer 36 mL/min (>60); Glucose 116 mg/dL (74-106); Potassium 5.2 mmol/L (3.5-5.1); Sodium Level 139 mmol/L (136-145)
[2019-05-18 15:44] LABS: Vitamin B12 > 2000 pg/mL (211-911)
== END ==
PROVIDERS: PCP Family Medicine; Visit Provider Family Medicine
DX: E53.8 Deficiency of other specified B group vitamins (principal); N17.9 Acute kidney failure, unspecified; I10 Essential (primary) hypertension
CPT/HCPCS: 36415; 80048; 82607

== ENCOUNTER → 2019-05-26 08:23 | Outpatient (CLI) | payer MEDICARE, SELFPAY ==
[2019-04-29 00:33] VITALS: BMI 26.3
[2019-05-26 12:46] LABS: Anion Gap 7 (5-15); BUN 30 mg/dL (7-18); BUN/Creat Ratio 17.2 RATIO (10-20); Calcium,Total 9.4 mg/dL (8.5-10.1); Chloride 115 mmol/L (98-107); Creatinine, Serum 1.74 mg/dL (0.55-1.02); EST Glomerular Filtration Rate 30 mL/min (>60); Est Glom Filt Rate - Afr Amer 36 mL/min (>60); Glucose 129 mg/dL (74-106); Potassium 5.7 mmol/L (3.5-5.1); Sodium Level 145 mmol/L (136-145)
== END ==
PROVIDERS: Family Provider Family Medicine; PCP Family Medicine; Visit Provider Family Medicine
DX: N17.9 Acute kidney failure, unspecified (principal); E87.5 Hyperkalemia
CPT/HCPCS: 36415; 80048

== ENCOUNTER → 2019-06-02 08:32 | Outpatient (CLI) | payer MEDICARE, SELFPAY ==
[2019-04-29 00:33] VITALS: BMI 26.3
[2019-06-02 12:15] LABS: Anion Gap 7 (5-15); BUN 21 mg/dL (7-18); BUN/Creat Ratio 13.5 RATIO (10-20); Calcium,Total 9.2 mg/dL (8.5-10.1); Chloride 111 mmol/L (98-107); Creatinine, Serum 1.56 mg/dL (0.55-1.02); EST Glomerular Filtration Rate 34 mL/min (>60); Est Glom Filt Rate - Afr Amer 41 mL/min (>60); Glucose 176 mg/dL (74-106); Potassium 4.8 mmol/L (3.5-5.1); Sodium Level 143 mmol/L (136-145)
== END ==
PROVIDERS: Family Provider Family Medicine; PCP Family Medicine; Visit Provider Family Medicine
DX: E11.21 Type 2 diabetes mellitus with diabetic nephropathy (principal)
CPT/HCPCS: 36415; 80048

== ENCOUNTER → 2019-07-03 09:39 | Outpatient (CLI) | payer MEDICARE, SELFPAY ==
[2019-04-29 00:33] VITALS: BMI 26.3
[2019-07-03 12:48] LABS: Anion Gap 8 (5-15); BUN 29 mg/dL (7-18); BUN/Creat Ratio 16.9 RATIO (10-20); Calcium,Total 9.5 mg/dL (8.5-10.1); Chloride 110 mmol/L (98-107); Creatinine, Serum 1.72 mg/dL (0.55-1.02); EST Glomerular Filtration Rate 31 mL/min (>60); Est Glom Filt Rate - Afr Amer 37 mL/min (>60); Glucose 138 mg/dL (74-106); Sodium Level 144 mmol/L (136-145)
== END ==
PROVIDERS: Family Provider Family Medicine; PCP Family Medicine; Visit Provider Family Medicine
DX: E87.5 Hyperkalemia (principal)
CPT/HCPCS: 36415; 80048

== ENCOUNTER → 2019-08-25 15:05 | Outpatient (CLI) | payer MEDICARE, MEDICAID, SELFPAY ==
[2019-07-15 11:52] VITALS: BMI 26.3
[2019-08-25 17:22] LABS: Absolute Neutrophil Count 4.8 X10^3/uL (2.0-7.7); Basophil# 0.04 X10^3/uL; Basophil% 0.5 % (0-1); Eosinophil# 0.24 X10^3/uL; Eosinophils% 3.1 % (0-5); Hematocrit 36.5 % (37-47); Hemoglobin 11.3 g/dL (12.0-15.0); Lymphocyte % 27.4 % (19-41); Mean Corpuscular Hgb 29.4 pg (27.0-32.0); Mean Corpuscular Volume 95.1 fL (81-99); Mean Platelet Vol. 12.4 fl (6.2-12.0); Monocyte# 0.43 X10^3/uL; Monocyte% 5.6 % (0-10); NRBC Flagged by Analyzer 0 % (0-5); Neutrophil # 4.81 X10^3/uL (2.7-7.7); Neutrophil % 62.7 % (47-70); Platelet Count 195 K/mm3 (150-450); RBC Distribution Width CV 13.3 % (11.6-14.6); RBC Distribution Width SD 46.2 fl (35.1-43.9); Red Blood Count 3.84 M/mm3 (4.2-5.4); White Blood Count 7.7 K/mm3 (4.4-11.0)
[2019-08-25 17:40] LABS: Vitamin B12 422 pg/mL (211-911)
[2019-08-25 17:44] LABS: Anion Gap 6 (5-15); BUN 20 mg/dL (7-18); BUN/Creat Ratio 12.3 RATIO (10-20); Calcium,Total 9.3 mg/dL (8.5-10.1); Chloride 108 mmol/L (98-107); Creatinine, Serum 1.62 mg/dL (0.55-1.02); EST Glomerular Filtration Rate 33 mL/min (>60); Est Glom Filt Rate - Afr Amer 40 mL/min (>60); Ferritin 24 ng/mL (8-252); Glucose 163 mg/dL (74-106); Iron 56 ug/dL (50-170); Potassium 4.3 mmol/L (3.5-5.1); Sodium Level 142 mmol/L (136-145); Thyroid Stim Hormone (TSH) 1.42 uIU/mL (0.358-3.74)
== END ==
PROVIDERS: Family Provider Family Medicine; PCP Family Medicine; Visit Provider Family Medicine
DX: E11.65 Type 2 diabetes mellitus with hyperglycemia (principal); N18.3 Chronic kidney disease, stage 3 (moderate); D64.9 Anemia, unspecified; I12.9 Hypertensive chronic kidney disease with stage 1 through stage 4 chronic kidney disease, or unspecified chronic kidney disease; E53.8 Deficiency of other specified B group vitamins; E11.21 Type 2 diabetes mellitus with diabetic nephropathy
CPT/HCPCS: 36415; 80048; 82607; 82728; 83540; 84443; 85025

== ENCOUNTER → 2019-10-14 10:39 | Outpatient (CLI) | payer MEDICARE, MEDICAID, SELFPAY ==
[2019-07-15 11:52] VITALS: BMI 26.3
[2019-10-14 12:46] LABS: BUN 31 mg/dL (7-18); Creatinine, Serum 1.85 mg/dL (0.55-1.02); EST Glomerular Filtration Rate 28 mL/min (>60); Glucose 155 mg/dL (74-106)
[2019-10-14 12:47] LABS: Anion Gap 6 (5-15); BUN/Creat Ratio 16.8 RATIO (10-20); Calcium,Total 9.5 mg/dL (8.5-10.1); Chloride 107 mmol/L (98-107); Est Glom Filt Rate - Afr Amer 34 mL/min (>60); Potassium 4.7 mmol/L (3.5-5.1); Sodium Level 139 mmol/L (136-145)
== END ==
PROVIDERS: Family Provider Family Medicine; PCP Family Medicine; Visit Provider Family Medicine
DX: I10 Essential (primary) hypertension (principal); E11.21 Type 2 diabetes mellitus with diabetic nephropathy
CPT/HCPCS: 36415; 80048

== ENCOUNTER → 2019-12-01 11:53 | Outpatient (CLI) | payer MEDICARE, MEDICAID, SELFPAY ==
[2019-10-28 09:55] VITALS: BMI 26.3
[2019-12-01 15:19] LABS: Absolute Lymphocyte Count 1.81 X10^3/uL (0.83-4.51); Absolute Neutrophil Count 4.1 X10^3/uL (2.0-7.7); Basophil# 0.03 X10^3/uL; Basophil% 0.5 % (0-1); Eosinophil# 0.17 X10^3/uL; Eosinophils% 2.6 % (0-5); Hematocrit 37.6 % (37-47); Hemoglobin 11.6 g/dL (12.0-15.0); Lymphocyte # 1.81 X10^3/ul (4.0); Lymphocyte % 27.8 % (19-41); Mean Corp Hgb Conc 30.9 g/dL (32-36); Mean Corpuscular Hgb 28.9 pg (27.0-32.0); Mean Corpuscular Volume 93.5 fL (81-99); Mean Platelet Vol. 12.4 fl (6.2-12.0); Monocyte# 0.39 X10^3/uL; NRBC Flagged by Analyzer 0 % (0-5); Neutrophil # 4.08 X10^3/uL (2.7-7.7); Neutrophil % 62.8 % (47-70); Platelet Count 196 K/mm3 (150-450); RBC Distribution Width CV 13.4 % (11.6-14.6); RBC Distribution Width SD 45.8 fl (35.1-43.9); Red Blood Count 4.02 M/mm3 (4.2-5.4); White Blood Count 6.5 K/mm3 (4.4-11.0)
[2019-12-01 15:35] LABS: ALB/GLOB Ratio 0.8 RATIO (0.9-2.4); AST(SGOT) 14 U/L (15-37); Alanine Aminotransfer ALT/SGPT 22 U/L (13-56); Albumin, Serum 3.6 g/dL (3.2-5.0); Alkaline Phosphatase 72 U/L (45-117); Anion Gap 6 (5-15); BUN 21 mg/dL (7-18); BUN/Creat Ratio 12.7 RATIO (10-20); Calcium,Total 9.6 mg/dL (8.5-10.1); Chloride 107 mmol/L (98-107); Creatinine, Serum 1.65 mg/dL (0.55-1.02); EST Glomerular Filtration Rate 32 mL/min (>60); Est Glom Filt Rate - Afr Amer 39 mL/min (>60); Ferritin 21 ng/mL (8-252); Globulin 4.4 g/dL (2.2-4.2); Glucose 147 mg/dL (74-106); Iron 56 ug/dL (50-170); Lipase 320 U/L (73-393); Potassium 4.1 mmol/L (3.5-5.1); Sodium Level 140 mmol/L (136-145)
== END ==
PROVIDERS: PCP Family Medicine; Referring Provider Family Medicine; Visit Provider Family Medicine
DX: R11.2 Nausea with vomiting, unspecified (principal); R10.13 Epigastric pain
CPT/HCPCS: 36415; 80053; 82728; 83540; 83690; 85025

== ENCOUNTER → 2019-12-15 07:57 | Outpatient (CLI) | payer MEDICARE, MEDICAID, SELFPAY ==
[2019-10-28 09:55] VITALS: BMI 26.3
--- NOTE | 2019-12-15 08:03 | US_ITS ---
STUDY: ABDOMINAL ULTRASOUND - RIGHT UPPER QUADRANT REASON FOR VISIT: Female, 79 years old epigastric pain. TECHNIQUE: Ultrasound evaluation of the right upper quadrant was performed with real-time and static cardenas-scale imaging. TECHNICAL QUALITY: Adequate. COMPARISON: CT abdomen and pelvis with contrast 08/31/2015. FINDINGS: Liver: The liver measures 15.8 cm. Increase echogenicity of the liver parenchyma due to fatty infiltration. The bile ducts are within normal limits. There is hepatic color flow. The direction of portal flow is hepatopetal. There is no demonstrated mass lesion. Gallbladder: Normal distended gallbladder. The gallbladder wall measures 1.9 mm. There is a negative sonographic Zamora''s sign. There is no pericholecystic fluid. There are multiple small gallstones and minimal sludge. Common Bile Duct (C.B.D.): The common bile duct measures 3.2 mm. Pancreas: Normal size of the head, body and tail of the pancreas. Hyperechoic pancreas is most likely due to fatty involution. There is no demonstrated pancreatic mass or cyst. The pancreatic duct is not dilated. 6 mm calcification in the pancreas corresponds to the splenic artery calcifications seen on prior CT abdomen. Right Kidney: Normal size of the right kidney. The right kidney measures 10.6 x 5.1 x 4.3 cm. Normal renal cortex. The right cortex measures 1.4 cm. There is no demonstrated renal mass or cyst. There is no right hydronephrosis. US/Abdomen Limited IMPRESSION: 1. Mild diffuse hepatic steatosis. 2. Multiple small gallstones with GB sludge but negative sonographic Zamora''s sign, no pericholecystic fluid and no gallbladder wall thickening. 3. No suspicious acute abnormality. Electronically Signed: Oleg Stover MD at 8:24 EDT , Service support ,
== END ==
PROVIDERS: PCP Family Medicine; Referring Provider Family Medicine; Visit Provider Family Medicine
DX: R10.13 Epigastric pain (principal); R11.2 Nausea with vomiting, unspecified
CPT/HCPCS: 76705

== ENCOUNTER → 2019-12-25 11:55 | Outpatient (CLI) | payer MEDICARE, MEDICAID, SELFPAY ==
[2019-04-29 00:33] VITALS: BMI 26.3
[2019-07-15 11:52] VITALS: BMI 26.3
--- NOTE | 2019-11-23 20:31 | HP.PCM_ITS ---
History and Physical Date of Admission: 11/24/19 HISTORY OF PRESENT ILLNESS 78 year old woman presents for evaluation for TBSE. She has concerns about enlarging lesions on her nasal dorsum at nasal tip, right lateral eyebrow, right lateral forehead, central forehead, and left lateral forehead by the hairline. The lesions have developed irregular borders. The lesions right lateral eyebrow and central forehead have become raised in configuration with a cutaneous horn component. She denies fever. She denies trauma. She denies drainage from these lesions. She also intermittent pins and needles that extend from the left wrist to the elbow. She underwent a neuroplasty median nerve at carpal tunnel left wrist in 2016. Patient is a smoker. Patient has diabetes mellitus and her last HgbA1c was 8.4 on 04/10/19. PAST MEDICAL HISTORY Diabetes Hyperlipidemia Osteoporosis COPD (chronic obstructive pulmonary disease) High blood pressure PAST SURGICAL HISTORY hysterectomy right knee surgery right foot surgery right shoulder replacement ALLERGIES Penicillins [PCN] MEDICATIONS metFORMIN HCl [Glucophage] Atorvastatin Calcium [Lipitor] hydroCHLOROthiazide [Hydrochlorothiazide] Omeprazole glimepiride FAMILY HISTORY Sister - Arthritis Mother - Breast cancer, Cancer SOCIAL HISTORY Smoking Status: Current every day smoker tobacco type: cigarettes alcohol intake: current substance use type: does not use REVIEW OF SYSTEMS General - Denies fever, fatigue and weight loss. Eyes - Denies eye pain. ENT - Denies nasal congestion and sore throat. CV - Denies chest pain or discomfort, fatigue, lightheadedness and shortness of breath with exertion. Resp - Denies cough and shortness of breath. has COPD. patient is a smoker. GI - Denies nausea, vomiting, diarrhea and constipation. - Denies blood in urine and urinary frequency. MS - Complains of arthritis. Denies joint pain, back pain, stiffness and muscle weakness. had right knee and foot surgery. has bilateral carpal tunnel surgery. Derm - has enlarging lesions nasal dorsum at nasal tip, right lateral eyebrow, right lateral forehead, central forehead, left lateral forehead by hairline. Denies skin cancer. Neuro - Has pins and needles from left wrist to elbow. Had bilateral carpal tunnel surgery. Psych - Denies anxiety and depression. Endo - Denies excessive urination and excessive thirst. had diabetes mellitus. has hyperlipidemia. Heme - Denies bleeding and abnormal bruising. PHYSICAL EXAMINATION General - well developed, well nourished, in no acute distress. HEENT - PERRL/EOM intact, conjunctiva and sclera clear. On the nasal dorsum at nasal tip is a 7 mm lesion that is crusty. Has irregular borders. No ulceration. Lesion is nontender. On the right lateral eyebrow is a cutaneous horn lesion that measures 7 mm. Has irregular borders. No ulceration. Lesion is nontender. On the right lateral forehead is an erythematous lesion that measures 2.1 cm. Slightly raised in configuration. Has irregular borders. No ulceration. Lesion is nontender. On the central forehead is a cutaneous horn lesion that measures 7 mm. Has irregular borders. No ulceration. Lesion is nontender. On the left lateral forehead by hairline is a 4 cm lesion that is slightly raised in configuration. Has irregular borders. No ulceration. Lesion is nontender. Neck - no masses, thyromegaly, or abnormal cervical nodes. some bony tenderness. No suspicious lesions noted. Lungs - clear bilaterally to auscultation. Heart - regular rate and rhythm. Pulses - radial pulses are palpable. Extremities - no clubbing, cyanosis, edema, or deformity noted with normal full range of motion of all joints. patient is right hand dominant. No suspicious lesions noted. Negative Tinel's sign. Some decreased sensation to pinprick from left wrist to elbow. There is mild thenar eminence atrophy. Forearm pronation and supination intact. Elbows are nontender. No axillary adenopathy. Radial pulses are palpable. Scars bilateral volar wrists are healed. Nontender. Neurologic - cranial nerves II-XII grossly intact. Cervical Nodes - no significant adenopathy. Axillary Nodes - no significant adenopathy. Psych - alert and cooperative; normal mood and affect; normal attention span and concentration. ASSESSMENT 1. 7 mm lesion nasal dorsum at nasal tip. 2. 7 mm cutaneous horn lesion right lateral eyebrow. 3. 2.1 cm erythematous lesion right lateral forehead. 4. 7 mm cutaneous horn lesion central forehead. 5. 4 cm lesion left lateral forehead by hairline. 6. Paresthesias left forearm to elbow. 7. H/o bilateral carpal tunnel surgery. 8. Diabetes mellitus. 9. Smoker. PLAN Recommend excision of the cutaneous horn lesions on her right lateral eyebrow and central forehead and send them to Pathology for analysis to rule out carcinoma. If carcinoma is present, then further excision will be done with skin graft or skin flap reconstruction. Will also biopsy the other three lesions (nasal dorsum at nasal tip, right lateral forehead, left lateral forehead by hairline) with intradermal excisions. Will send them to Pathology. If positive for carcinoma then will re-excise them with skin flap or skin graft reconstruction at a separate time. After surgery will order another NCS and EMG on the left to see if further compression is present between the wrist and elbow. If normal, may need an MRI. Also discussed with the patient that diabetes mellitus and smoking can cause paresthesias. Her last HgbA1c was 8.4. Will begin Neurontin. For the excision of skin lesions, it will be done on an outpatient basis under local anesthesia and IV sedation. Patient was informed of the risks and complications of the procedure including alternatives to surgery. These were discussed with the patient personally. Patient voices understanding and wishes to proceed. Some of the risks and complications were included in a form from the [employer]. Encouraged patient to stop smoking as it may have deleterious effects on wound healing.
[2019-12-23 12:37] VITALS: BMI 27.1
== END ==
PROVIDERS: Family Provider Family Medicine; PCP Family Medicine; Referring Provider Surgery; Visit Provider Surgery
DX: J34.89 Other specified disorders of nose and nasal sinuses (principal); L98.9 Disorder of the skin and subcutaneous tissue, unspecified; E11.9 Type 2 diabetes mellitus without complications; E78.5 Hyperlipidemia, unspecified; J44.9 Chronic obstructive pulmonary disease, unspecified; M81.0 Age-related osteoporosis without current pathological fracture; F17.210 Nicotine dependence, cigarettes, uncomplicated; Z79.899 Other long term (current) drug therapy; Z88.0 Allergy status to penicillin; Z90.710 Acquired absence of both cervix and uterus; Z96.611 Presence of right artificial shoulder joint

== ENCOUNTER → 2020-03-21 14:00 | Outpatient (CLI) | payer MEDICARE, MEDICAID, SELFPAY ==
[2020-03-03 13:30] VITALS: BMI 27.1
== END ==
PROVIDERS: PCP Family Medicine; Referring Provider Surgery; Visit Provider Surgery
DX: Z11.59 Encounter for screening for other viral diseases (principal)
CPT/HCPCS: 87635; G2023; U0003

== ENCOUNTER → 2020-03-25 06:12 | Outpatient (CLI) | payer MEDICARE, MEDICAID, SELFPAY ==
[2020-03-23 12:47] VITALS: BMI 25.2
--- NOTE | 2020-03-25 09:08 | STRESSREP ---
Stress Test Report Pharmacologic myocardial perfusion stress test. Reason preop surgical clearance. Stress protocol: Resting EKG demonstrates normal sinus rhythm with a rate of 80 bpm T wave inversions are noted inferolaterally. 0.4 mg of regadenoson was infused per usual protocol followed by rapid intravenous saline flush injection. Stress and rest images were reconstructed and compared. The maximum heart rate attained was noted to be 104 bpm which was 73% of maximum predicted heart rate. Nonspecific ST-T wave changes were noted. The resting blood pressure was 180/82 final blood pressure was 152/82. Myocardial perfusion protocol. 12.0 mCi of technetium 99m sestamibi was injected at rest. 0.4 mg of regadenoson was infused per usual protocol. At peak infusion 35.7 mCi of technetium 99m sestamibi was injected stress images were obtained stress and rest images were reconstructed and compared in the short axis vertical long horizontal long axis. Gated images were also obtained. Perfusion SPECT analysis: Review of the images demonstrate normal uptake of tracer noted in the septum anterior wall and lateral wall. The inferior wall has a medium area of perfusion defect which appears to improve on the resting images suggesting medium inferior ischemia present. The rest of the leo appear to be normally perfused. Gated SPECT analysis: The gated ejection fraction is 61%. Conclusion: Abnormal pharmacologic myocardial perfusion stress test with evidence of mid inferior ischemia. Preserved ejection fraction.
== END ==
PROVIDERS: PCP Family Medicine; Referring Provider Internal Medicine Cardiovascular Disease; Visit Provider Internal Medicine Cardiovascular Disease
DX: R94.31 Abnormal electrocardiogram [ECG] [EKG] (principal)
CPT/HCPCS: 78452; 93017; A9500; A4216; J2785

== ENCOUNTER 2020-04-15 07:33 | Day surgery (SDC) | payer MEDICARE, MEDICAID, SELFPAY ==
[2020-03-23 12:47] VITALS: BMI 25.2
[2020-04-07 08:13] VITALS: BMI 25.2
[2020-04-07 08:50] LABS: Absolute Lymphocyte Count 2.04 X10^3/uL (0.83-4.51); Absolute Neutrophil Count 4.8 X10^3/uL (2.0-7.7); Basophil# 0.02 X10^3/uL; Basophil% 0.3 % (0-1); Eosinophil# 0.18 X10^3/uL; Eosinophils% 2.4 % (0-5); Hematocrit 36.9 % (37-47); Hemoglobin 11.5 g/dL (12.0-15.0); Lymphocyte # 2.04 X10^3/ul (4.0); Mean Corp Hgb Conc 31.2 g/dL (32-36); Mean Corpuscular Hgb 29.2 pg (27.0-32.0); Mean Corpuscular Volume 93.7 fL (81-99); Mean Platelet Vol. 12.1 fl (6.2-12.0); Monocyte# 0.46 X10^3/uL; Monocyte% 6.1 % (0-10); NRBC Flagged by Analyzer 0 % (0-5); Neutrophil # 4.83 X10^3/uL (2.7-7.7); Neutrophil % 63.8 % (47-70); Platelet Count 200 K/mm3 (150-450); RBC Distribution Width SD 47.4 fl (35.1-43.9); Red Blood Count 3.94 M/mm3 (4.2-5.4); White Blood Count 7.6 K/mm3 (4.4-11.0)
[2020-04-07 09:19] LABS: Anion Gap 4 (5-15); BUN 22 mg/dL (7-18); Calcium,Total 9.2 mg/dL (8.5-10.1); Chloride 113 mmol/L (98-107); Creatinine, Serum 1.57 mg/dL (0.55-1.02); EST Glomerular Filtration Rate 34 mL/min (>60); Est Glom Filt Rate - Afr Amer 41 mL/min (>60); Estimated Creatinine Clearance 26.57 ml/min; Glucose 82 mg/dL (74-106); Sodium Level 142 mmol/L (136-145)
[2020-04-07 11:12] LABS: Hemoglobin A1c 7.7 % (3.8-5.6)
[2020-04-15] VITALS (38 sets, daily range): BP systolic 108–158; BP diastolic 41–95; PULSE 69–91; RESP 12–22; TEMP 36.9; O2SAT 99–100; BMI 25.6
--- NOTE | 2020-04-15 07:55 | RAD_ITS ---
STUDY: X-RAY CHEST REASON FOR EXAM: Female, 79 years old. Dyspnea. TECHNIQUE: PA and lateral views of the chest. COMPARISON: April 08, 2018. FINDINGS: The lungs are mildly hyperexpanded. There is no new mass or infiltrate. There is no demonstrated pleural abnormality. There is borderline cardiomegaly. Normal mediastinum and sridhar. Normal visualized pulmonary arteries. There is atherosclerotic calcification of the aortic arch with tortuosity. There are diffuse degenerative changes of the visualized thoracic spine. Stable right shoulder replacement. There is no demonstrated abnormality of the visualized soft tissue structures of the upper abdomen. RAD/Chest PA and Lateral IMPRESSION: No acute cardiopulmonary disease or interval change. Electronically Signed: Shun Delcid DO at 23:04 EDT Tel [phone], Service support ,
--- NOTE | 2020-04-15 11:36 | CL.D_ITS ---
Patient Name: RAMIREZ MUSE Study Date: 04/15/2020 Performing: Johnny Michelle MD Ht: 64.96 inches 165 cm : 1940 Wt: 152.12 lbs 69 kg Age: 79 Gender: female BSA: 1.76 PROCEDURE(S) PERFORMED [id number] CLINICAL PROFILE AND INDICATIONS Indications: Suspected CAD Heart Failure: None Stress/Imaging Date: 03/25/20tress Test with SPECT MPI: Positive Intermediate Risk CAD Presentations: No Sxs, no angina. CONCLUSIONS High grade RCA high grade lesion with left to right collaterals RECOMMENDATIONS Referred for PCI DESCRIPTION OF PROCEDURE The patient arrived to the procedure lab. The risks and benefits of the procedure as well as a full d escription of our services here and current unavailability of surgical backup were fully explained to the patient and/or their significant other prior to the catheterization. The Timeout was completed, verifying the correct patient and procedure. The patient's procedural site was prepped and draped in the usual fashion. Local anesthetic was given subcutaneously to right groin region with Lidocaine 2%. Using a modified Seldinger technique, arterial access was obtained via the right femoral artery, a 5 Fr sheath was inserted. Left Coronary Artery selective angiography was performed in multiple views u sing a 5 Fr. FL4 catheter. Right Coronary Artery selective angiography was then performed in multiple views using a 5 Fr. 3DRC (Darian) catheter.The arterial sheath was sutured in place with hepariniz ed normal saline under pressure CORONARY ANGIOGRAPHY DOMINANCE: Right Dominant LEFT MAIN: Angiographically normal LEFT ANTERIOR DESCENDING ARTERY: Moderate luminal irregularities up to 50% PROX LAD: Moderate calcification SEPTAL: 60 % Stenosis CIRCUMFLEX ARTERY: Mild luminal irregularities less than 30% RAMUS: 80 % Stenosis RIGHT CORONARY ARTERY: PROX RCA: Moderate tapering MID RCA: 90 % Stenosis COLLATERAL FLOW: Collateral flow from Left to Right COMPLICATIONS PROCEDURE MEDICATIONS Versed 1 mg IV Versed 1 mg IV Oxygen: 2 L/min via nasal cannula Plavix 300 mg PO 04/15/2020 08:50:05 SUMMARY OF HEMODYNAMIC DATA Time AIR REST ECG 08:33:49 AO 167/60 (100) SA 09:12:08 ECG 09:57:17 Signed By Johnny Michelle MD On 04/15/2020 11:35:52 Johnny Michelle MD
[2020-04-15 13:06] LABS: ACT Activated Clotting Time 202 sec (74-137)
--- NOTE | 2020-04-15 13:23 | EKG12_ITS ---
Test Reason : POST PCI Blood Pressure : / mmHG Vent. Rate : 079 BPM Atrial Rate : 079 BPM P-R Int : 244 ms QRS Dur : 098 ms QT Int : 402 ms P-R-T Axes : 088 -04 148 degrees QTc Int : 460 ms Sinus rhythm with sinus arrhythmia with 1st degree A-V block ST & T wave abnormality, consider lateral ischemia Abnormal ECG When compared with ECG of 28-APR-2019 22:20, No significant change was found Confirmed by ABE RASMUSSEN, JOHNNY ([id number]), make up editor CORIN DAVIS ([id number]) on 04/19/2020 10:14:11 AM Referred By: Johnny Michelle Confirmed By:JOHNNY MICHELLE MD
[2020-04-15 13:46] LABS: ACT Activated Clotting Time 180 sec (74-137)
[2020-04-15] MEDS: 0.9% Normal Saline 1,000 ML 150 ML IV (13:59)
[2020-04-15] MEDS: Nitroglycerin Infusion 250 ML 9 MG IV (14:01)
[2020-04-15 14:51] LABS: ACT Activated Clotting Time 158 sec (74-137)
[2020-04-15] MEDS: Glimepiride 1 MG Tablet PO (18:26)
[2020-04-15] MEDS: Carvedilol 3.125 MG TABLET PO (21:47)
[2020-04-15] MEDS: Atorvastatin Calcium 40 MG Tablet PO (21:48)
[2020-04-16] VITALS (13 sets, daily range): BP systolic 108–175; BP diastolic 41–83; PULSE 64–79; RESP 12–23; TEMP 36.3–36.6; O2SAT 97–100
[2020-04-16] MEDS: 0.9% Saline Lock 10 ML Syringe IV (05:49)
[2020-04-16 06:46] LABS: Hemoglobin 9.9 g/dL (12.0-15.0); Mean Corp Hgb Conc 30.9 g/dL (32-36); Mean Corpuscular Hgb 29.4 pg (27.0-32.0); Mean Platelet Vol. 11.7 fl (6.2-12.0); Platelet Count 176 K/mm3 (150-450); RBC Distribution Width SD 47.7 fl (35.1-43.9); Red Blood Count 3.37 M/mm3 (4.2-5.4); White Blood Count 7.7 K/mm3 (4.4-11.0)
[2020-04-16 07:02] LABS: ALB/GLOB Ratio 0.8 RATIO (0.9-2.4); AST(SGOT) 13 U/L (15-37); Alanine Aminotransfer ALT/SGPT 12 U/L (13-56); Albumin, Serum 3.1 g/dL (3.2-5.0); Alkaline Phosphatase 78 U/L (45-117); Anion Gap 6 (5-15); BUN 25 mg/dL (7-18); BUN/Creat Ratio 17.5 RATIO (10-20); Calcium,Total 8.8 mg/dL (8.5-10.1); Chloride 113 mmol/L (98-107); Creatinine, Serum 1.43 mg/dL (0.55-1.02); EST Glomerular Filtration Rate 38 mL/min (>60); Est Glom Filt Rate - Afr Amer 46 mL/min (>60); Estimated Creatinine Clearance 29.18 ml/min; Globulin 3.7 g/dL (2.2-4.2); Glucose 100 mg/dL (74-106); Potassium 4.1 mmol/L (3.5-5.1); Protein, Total 6.8 g/dL (6.4-8.2); Sodium Level 142 mmol/L (136-145)
--- NOTE | 2020-04-16 08:00 | ECHOD_ITS ---
Reason For Study: CAD/ASHD Procedure This was a 2D Doppler, Color Flow transthoracic echocardiogram. Exam performed portable in ICU/CCU. Left Ventricle Normal LV size. Left ventricular systolic function is normal. The estimated ejection fraction is 55 %. Stage 1 diastolic dysfunction. Infero-Basal: Severely Hypokinetic. The rest of the wall segments are normal. Right Ventricle Normal RV size. Normal systolic function. Atria Normal left atrium. Normal right atrium. Mitral Valve Normal mitral valve. Mild (1+) eccentric mitral valve insufficiency. Tricuspid Valve Normal tricuspid valve. Mild (1+) tricuspid valve insufficiency. Pulmonary artery systolic pressure is 26 mmHg. Aortic Valve Normal aortic valve. Trisinus/trileaflet aortic valve. Pulmonic Valve Normal pulmonic valve. Great Vessels Calcified aortic root. The pulmonary artery is normal size. Normal inferior vena cava. Pericardium/Pleural No pericardial effusion. MMode/2D Measurements & Calculations LVIDd: 4.1 cm IVSd: 1.7 cm Ao root diam: 3.6 cm LVIDs: 2.9 cm LVPWd: 1.1 cm RVDd: 2.9 cm FS: 27.9 % LAV(MOD-bp): 43.2 ml LVAd ap4: 24.3 cm2 SV(MOD-sp4): 39.6 ml LAV(MOD-bp) Indexed: 24.4 ml/m2 EDV(MOD-sp4): 65.4 ml LAV(MOD-sp2): 55.0 ml EDV(sp4-el): 68.5 ml LAV(MOD-sp4): 33.5 ml LVAs ap4: 13.5 cm2 ESV(MOD-sp4): 25.8 ml ESV(sp4-el): 25.9 ml EF(MOD-sp4): 60.5 % EF(sp4-el): 62.1 % SV(sp4-el): 42.6 ml LA A4 area: 14.9 cm2 LA dimension(2D): 3.9 cm RA A4 area: 14.4 cm2 Doppler Measurements & Calculations MV E max syed: 107.3 cm/sec Lat Peak E' Syed: 3.7 cm/sec Med Peak E' Syed: 2.8 cm/sec MV A max syed: 132.7 cm/sec E/E' lat: 28.7 E/E' med: 37.8 MV E/A: 0.81 Ao V2 max: 139.1 cm/sec LV V1 max: 91.5 cm/sec PA V2 max: 97.3 cm/sec Ao max P.7 mmHg LV V1 max P.4 mmHg Ao V2 mean: 92.5 cm/sec Ao mean P.8 mmHg Ao V2 VTI: 31.8 cm TR max syed: 235.4 cm/sec TR max P.2 mmHg Interpretation Summary Normal LV size. Left ventricular systolic function is normal. The estimated ejection fraction is 55 %. Stage 1 diastolic dysfunction. Mild (1+) eccentric mitral valve insufficiency. Ordering Physician: Johnny Michelle Referring Physician: Moshe Matos Performed By: Jessica Casillas, DARLENE, RVT
[2020-04-16] MEDS: Carvedilol 3.125 MG TABLET PO (08:54)
[2020-04-16] MEDS: Aspirin E.C. 81 MG Tablet PO (08:54)
[2020-04-16] MEDS: Glimepiride 1 MG Tablet PO (08:54)
[2020-04-16] MEDS: Isosorbide Mononitrate 30 MG Tablet PO (08:54)
[2020-04-16] MEDS: Triamcinolone 0.5% Cream 1 APPLIC TOPICAL (08:55)
[2020-04-16] MEDS: hydroCHLOROthiazide 12.5mg 12.5 MG PO (08:57)
--- NOTE | 2020-04-16 10:00 | EKG12_ITS ---
Test Reason : AM EKG Blood Pressure : / mmHG Vent. Rate : 072 BPM Atrial Rate : 072 BPM P-R Int : 308 ms QRS Dur : 098 ms QT Int : 438 ms P-R-T Axes : 087 -16 165 degrees QTc Int : 479 ms Sinus rhythm with 1st degree A-V block ST & T wave abnormality, consider anterolateral ischemia When compared with ECG of 15-APR-2020 13:17, MANUAL COMPARISON REQUIRED, DATA IS UNCONFIRMED Confirmed by ABE RASMUSSEN, JOHNNY ([id number]), newspaper photo editor CORIN DAVIS ([id number]) on 04/19/2020 10:13:40 AM Referred By: Johnny Michelle Confirmed By:JOHNNY MICHELLE MD
--- NOTE | 2020-04-16 10:03 | PN.CARD_ITS ---
Subjectve: Patient was seen and evaluated. Appears to be doing well Objective: Vital Signs Temp Pulse Resp BP Pulse Ox 97.3 F L 64 12 152/63 H 99 04/16/20 04:00 04/16/20 07:00 04/16/20 07:00 04/16/20 07:00 04/16/20 07:00 Oxygen Delivery Method Room Air Weight: 157 lb 6.561 oz Body Mass Index (BMI) 25.6 Finger Stick Blood Glucose 164 Intake and Output for Last 24 Hours 04/14/20 04/15/20 04/16/20 23:59 23:59 23:59 Intake Total 1054.05 / 1054.05 0 / 0 Output Total 700 / 700 200 / 200 Balance 354.05 / 354.05 -200 / -200 General: Awake, Alert, Oriented x 3 HEENT: PERRL, EOMI, Sclera Non Icteric Neck: Supple, Good ROM, No Lymph Node Enlargement Lungs: Clear to auscultation Cardiovascular: Regular Rhythm, Normal S1, Normal S2, No Murmurs, No Rubs, No Gallops Vascular: No Carotid Bruits, Normal Femoral Pulses, Normal Radial Pulses, Normal Dorsalis Pedal Pulse, Normal Posterior Tibial Pulses Abdomen: Bowel Sounds Present, Soft, Non Tender, No HSM, No Organomegaly Extremities: No Cyanosis, No Clubbing, No edema Neurological: No Focal Motor or Sensory Deficit Psych/Mental Status: Appropriate 04/16/20 05:55: WBC 7.7, RBC 3.37 L, Hgb 9.9 L, Hct 32.0 L, MCV 95.0, MCH 29.4, MCHC 30.9 L, Plt Count 176, MPV 11.7 04/16/20 05:55: Sodium 142, Potassium 4.1, Chloride 113 H, Carbon Dioxide 23.0, Anion Gap 6, BUN 25 H, Creatinine 1.43 H, Est GFR (MDRD) Af Amer 46 L, Est GFR (MDRD) Non-Af 38 L, BUN/Creatinine Ratio 17.5, Glucose 100, Calcium 8.8, Total Bilirubin 0.30 Rhythm: EKG: ECHO: Stress Test: Cardiac Cath: PCI: CT Surgery: Holter monitor: EPS: PPM: CXR: Chest CT Scan: Medical Necessity - Tobacco Use Smoking Status: Current every day smoker Tobacco Use: Cigarettes Assessment/Plan 1. Coronary artery disease Patient has known coronary artery disease. She had an abnormal stress test with inferior ischemia cardiac catheterization led to * Demonstration of a high-grade mid right coronary artery lesion with [id number] collaterals. Attempt to angioplasty the above was unsuccessful. It appears that the lesion was subtotally occluded. As the patient was noted to be hypertensive she was watched overnight. This morning she appears to be doing well with no cardiac issues. EKG changes unchanged. * Will recommend to discharge today on outpatient follow-up with aspirin * Will also continue with risk factor modification with high intensity statin. 2. Hypertension * Patient has known hypertension. Has been started on carvedilol in addition to amlodipine. * Patient should continue with the above. * * With respect to the upcoming elective surgery I do not think that she needs any further work-up. She does have EKG changes which are fixed she should continue her medications up to and including the day of surgery. This information will be passed on to the plastic surgeon Thank you for allowing me to participate in the care of your patient. Please don't hesitate to call if any issues arise.
--- NOTE | 2020-04-16 10:37 | DCINST_ITS ---
Discharge Diet: No Restrictions - You may continue your normal diet., Low fat/ Low Cholesterol Discharge Activity: Return to Normal Activity Call your doctor if your incision/area has: Increased Pain/ Swelling, Increased Redness, Foul Smelling Discharge, Swelling at the incision site Call your doctor if you observe: Fever of 101 or Higher Additional Dressing/Incision Instructions:: Keep the dressing (bandage) on until the next morning. You may then shower, but do not take a tub bath for 5 days after your test. It is normal to have some tenderness and discomfort at the puncture site. Sometimes bruising also occurs. However, if pain, numbness, or coldness occurs below the puncture site (in your leg, toes, arms or fingers) call your doctor at once. You may have a small, marble sized knot at the puncture site. This is normal. Do not rub it. It will go away in 4-6 weeks. Bleeding can occur from the area where the puncture was done. Blood may spurt or drip from the site. If blood spurts, apply pressure right away to stop bleeding and call 911. Although rare, bleeding into the tissue (hematoma) can also occur. If this happens, a large, firm area goose egg under the skin will appear. If any of these occur, lie down as flat as you can and have someone apply firm pressure to the cath site with a gauze pad or a clean washcloth for 10-15 minutes. Call 911 or go to the Emergency Department. Allergies/Adverse Reactions: Allergies Penicillins [PCN] Allergy (Verified 03/23/20 12:47) Swelling Medications to take at Discharge metFORMIN HCl [Glucophage] 1,000 mg PO BID 03/22/15 Atorvastatin Calcium [Lipitor] 40 mg PO QHS 02/26/17 glimepiride 4 mg tablet 1 mg PO BID tab 07/15/19 Ferrous Sulfate 325 mg PO DAILY 11/17/19 naproxen 500 mg tablet,delayed release 500 mg PO BID 03/03/20 triamcinolone acetonide 0.1 % topical cream 1 applic TOPICAL BID 03/03/20 aspirin 81 mg tablet,delayed release 81 mg PO DAILY #90 tab 03/28/20 Amlodipine [Norvasc] 5 mg PO DAILY #90 tab 04/16/20 Carvedilol [Coreg (Beta Taran)] 3.125 mg PO BID #120 tab 04/16/20 The following prescriptions were given: Carvedilol [Coreg (Beta Taran)] 3.125 mg PO BID #120 tab Transmission Status: Received by [id number] Amlodipine [Norvasc] 5 mg PO DAILY #90 tab Transmission Status: Received by [id number] Primary Care Physician: Moshe Matos MD [Primary Care Provider] - Test Results: Test results from this visit will be discussed in further detail at your follow- up appointment, if applicable. When: heart group office Proposed Discharge Date: 04/16/20 Cardiac Rehabilitation Info Cardiac Rehabilitation Program Information: Cardiac Rehabilitation is important for patients like you who are recovering from a heart problem. Cardiac rehabilitation programs are recognized as integral to the continued care of the patient with coronary heart disease. The cardiac rehabilitation program is designed to optimize a patient's physical, psychological, and social functioning. Health post anesthesia care unit nurse work in cardiac rehabilitation programs and assist you with getting the treatments you need to get stronger and healthier - like exercise, healthy eating habits, and medications. Cardiac rehabilitation has been show to help people with heart problems live longer and have better life enjoyment than people who do not go to cardiac rehabilitation. Please contact the Cardiac Rehabilitation Program at [facility] at in two weeks if you have not heard from them.
[2020-04-16] MEDS: amLODIPine 5 MG Tablet PO (11:02)
--- NOTE | 2020-04-21 14:08 | CL.I_ITS ---
Patient Name: RAMIREZ MUSE Study Date: 04/15/2020 Performing: Wang Almaguer MD Ht: 65 inches 165 cm : 1940 Wt: 152.3 lbs 69 kg Age: 79 Gender: female BSA: 1.76 PROCEDURE(S) PERFORMED [id number], SINGLE CORONARY ARTERY CLINICAL PROFILE AND CO-MORBIDITIES Indications: Suspected CAD, Suspected CAD Heart Failure: None Stress/Imaging Date: 03/25/20 Stress Test with SPECT MPI: Positive Intermediate Risk Angina Classification Anginal Classification w/in 2 Weeks: No symptoms CAD Presentations: No Sxs, no angina. No Sxs, no angina. Comorbidities/Risk Factors: Current/Recent Smoker (< 1year) Hypertension Dyslipidemia Diabetes Mellitus: Diabetes Therapy: Oral CONCLUSIONS Unsuccessful PCI of the RCA. RECOMMENDATIONS Highly recommend quitting all tobacco products Follow up with primary director building Risk factor modification ASA Indefinitley Plavix for at least 12 months Routine post interventional care Refer for Outpatient Cardiac Rehab Manual sheath removal per protocol Follow up with Dr. Michelle Started NTG gtt, start Imdur, coreg. Consider PCI/FABRICS AND MATERIAL CUTTER if/when pt has anginal symptoms. D/w Dr Michelle. Unable to close RFA due to delay in PCI and too thin for Mynx closure. DESCRIPTION OF PROCEDURE The patient arrived to the procedure lab. The risks and benefits of the procedure as well as a full d escription of our services here and current unavailability of surgical backup were fully explained to the patient and/or their significant other prior to the catheterization. The Timeout was completed, verifying the correct patient and procedure. The patient's procedural site was prepped and draped in the usual fashion. Local anesthetic was given subcutaneously to right groin region with Lidocaine 2%. Local anesthetic was given subcutaneously to right groin region with Lidocaine 2% Using a modified S eldinger technique,arterial access was obtained via the right femoral artery, a 5Fr sheath was insert ed. Left Coronary Artery selective angiography was performed in multiple views using a 5 Fr. FL4 cath eter. Right Coronary Artery selective angiography was then performed in multiple views using a 5 Fr. 3DRC (Darian) catheter. Arterial sheath was exchanged for a 6 Fr Sheath. HS 2 Guide catheter was inserted and engaged int o the RCA. BMW Guide wire was advanced to the Right PDA. Runthrough Guide wire was inserted as a budd y wire Whisper Guide wire was inserted as a iain wire The arterial sheath was sutured in place wit h heparinized normal saline under pressure. The arterial sheath was sutured in place and capped INTERVENTION INFORMATION LESION SITE: RCA (Mid) PROCEDURE: Unsuccessful crossing of RCA lesion despite 3 wires attempted. Procedure aborted due to CRI, probabl e FABRICS AND MATERIAL CUTTER and lack of overt symptoms with less than optimal medical control of BP. Lesion Devices: Mcgill .014 BMW [place] Straight 190cm Medtronic 6 Fr HSII 100cm Guide Catheter Medtronic SC EUPHORA RX 1.5x12 BALLOON Terumo .014 Runthrough Extra Floppy 180cm straight Mcgill .014 HT Whisper MS Straight 190cm COMPLICATIONS No Complications PROCEDURE MEDICATIONS Versed 1 mg IV Versed 1 mg IV Oxygen: 2 L/min via nasal cannula Heparin 6000 unit(s) IV 04/15/2020 12:14:59 Nitro 300 mcg IC 04/15/2020 12:15:12 Nitro glycerin 25mg / 250ml D5W @ 5 mcg/min IV started 04/15/2020 12:17:16 Nitro 200 mcg IC 04/15/2020 12:20:23 Nitro 300 mcg IC 04/15/2020 12:26:22 Nitro glycerin 25mg / 250ml D5W @ 10 mcg/min (increased rate) 04/15/2020 12:26:35 Nitro glycerin 25mg / 250ml D5W @ 15 mcg/min (increased rate) 04/15/2020 12:38:53 Nitro 300 mcg IC 04/15/2020 12:41:02 Plavix 300 mg PO 04/15/2020 08:30:05 IV Bolus: .9 NaCl 600 ml total 04/15/2020 12:44:37 SUMMARY OF HEMODYNAMIC DATA Time AIR REST ECG 08:33:49 AO 167/60 (100) SA 09:12:08 ECG 09:57:17 AO 231/88 (146) 12:14:06 Signed By Wang Almaguer MD On 04/21/2020 2:07:14 PM Wang Almaguer MD
== END 2020-04-16 11:40 | disposition home or self-care (01) ==
LOC: CLSP 07:35 → ICU 13:10
PROVIDERS: Internal Medicine Cardiovascular Disease; Surgery; PCP Family Medicine; Referring Provider Internal Medicine Cardiovascular Disease; Visit Provider Internal Medicine Cardiovascular Disease
DX: I25.10 Atherosclerotic heart disease of native coronary artery without angina pectoris (principal); I34.0 Nonrheumatic mitral (valve) insufficiency; R94.31 Abnormal electrocardiogram [ECG] [EKG]; E78.5 Hyperlipidemia, unspecified; N18.9 Chronic kidney disease, unspecified; I12.9 Hypertensive chronic kidney disease with stage 1 through stage 4 chronic kidney disease, or unspecified chronic kidney disease; F17.210 Nicotine dependence, cigarettes, uncomplicated; J44.9 Chronic obstructive pulmonary disease, unspecified; M81.0 Age-related osteoporosis without current pathological fracture; Z79.899 Other long term (current) drug therapy
CPT/HCPCS: 36415; 71046; 80048; 80053; 83036; 85025; 85027; 85347; 92920; 93005; 93306; 93454; 99152; 99153; J7030; J7040; Q9957; Q9967; A4216; C1725; C1769; C1887

== ENCOUNTER → 2020-08-03 11:15 | Outpatient (CLI) | payer MEDICARE, MEDICAID, SELFPAY ==
[2020-04-15 13:17] VITALS: BMI 25.6
[2020-08-03 15:20] LABS: Absolute Lymphocyte Count 1.66 X10^3/uL (0.83-4.51); Absolute Neutrophil Count 4.2 X10^3/uL (2.0-7.7); Basophil# 0.03 X10^3/uL; Basophil% 0.5 % (0-1); Eosinophil# 0.18 X10^3/uL; Eosinophils% 2.8 % (0-5); Hematocrit 34.4 % (37-47); Hemoglobin 10.3 g/dL (12.0-15.0); Lymphocyte # 1.66 X10^3/ul (4.0); Lymphocyte % 25.7 % (19-41); Mean Corp Hgb Conc 29.9 g/dL (32-36); Mean Corpuscular Hgb 28.4 pg (27.0-32.0); Mean Corpuscular Volume 94.8 fL (81-99); Mean Platelet Vol. 12.1 fl (6.2-12.0); Monocyte# 0.39 X10^3/uL; NRBC Flagged by Analyzer 0 % (0-5); Neutrophil # 4.16 X10^3/uL (2.7-7.7); Neutrophil % 64.5 % (47-70); Platelet Count 199 K/mm3 (150-450); RBC Distribution Width CV 13.2 % (11.6-14.6); RBC Distribution Width SD 45.4 fl (35.1-43.9); Red Blood Count 3.63 M/mm3 (4.2-5.4); White Blood Count 6.5 K/mm3 (4.4-11.0)
[2020-08-03 15:39] LABS: Vitamin D,25 Hydroxy 18.6 ng/mL
[2020-08-03 15:45] LABS: Anion Gap 5 (5-15); BUN 26 mg/dL (7-18); BUN/Creat Ratio 16.4 RATIO (10-20); Calcium,Total 9.2 mg/dL (8.5-10.1); Chloride 108 mmol/L (98-107); Creatinine, Serum 1.59 mg/dL (0.55-1.02); EST Glomerular Filtration Rate 33 mL/min (>60); Est Glom Filt Rate - Afr Amer 40 mL/min (>60); Ferritin 21 ng/mL (8-252); Glucose 98 mg/dL (74-106); Iron 39 ug/dL (50-170); Potassium 5.1 mmol/L (3.5-5.1); Sodium Level 139 mmol/L (136-145)
[2020-08-05 17:24] LABS: Vitamin B12 260 pg/mL (211-911)
== END ==
PROVIDERS: PCP Family Medicine; Visit Provider Family Medicine
DX: E11.65 Type 2 diabetes mellitus with hyperglycemia (principal); I10 Essential (primary) hypertension; D64.9 Anemia, unspecified; E53.8 Deficiency of other specified B group vitamins
CPT/HCPCS: 36415; 80048; 82306; 82607; 82728; 83540; 85025

== ENCOUNTER → 2020-11-02 11:09 | Outpatient (CLI) | payer MEDICARE, MEDICAID, SELFPAY ==
[2020-04-15 13:17] VITALS: BMI 25.6
[2020-11-02 11:36] LABS: Absolute Lymphocyte Count 1.87 X10^3/uL (0.83-4.51); Absolute Neutrophil Count 6.4 X10^3/uL (2.0-7.7); Basophil# 0.03 X10^3/uL; Basophil% 0.3 % (0-1); Eosinophil# 0.34 X10^3/uL; Eosinophils% 3.7 % (0-5); Hematocrit 34.2 % (37-47); Hemoglobin 10.2 g/dL (12.0-15.0); Lymphocyte # 1.87 X10^3/ul (4.0); Lymphocyte % 20.3 % (19-41); Mean Corp Hgb Conc 29.8 g/dL (32-36); Mean Corpuscular Hgb 26.8 pg (27.0-32.0); Mean Platelet Vol. 11.5 fl (6.2-12.0); Monocyte# 0.51 X10^3/uL; Monocyte% 5.5 % (0-10); NRBC Flagged by Analyzer 0 % (0-5); Neutrophil # 6.43 X10^3/uL (2.7-7.7); Neutrophil % 69.8 % (47-70); Platelet Count 220 K/mm3 (150-450); RBC Distribution Width CV 14.6 % (11.6-14.6); RBC Distribution Width SD 48.5 fl (35.1-43.9); White Blood Count 9.2 K/mm3 (4.4-11.0)
[2020-11-02 12:40] LABS: Vitamin B12 391 pg/mL (211-911)
[2020-11-02 12:52] LABS: ALB/GLOB Ratio 0.8 RATIO (0.9-2.4); AST(SGOT) 17 U/L (15-37); Alanine Aminotransfer ALT/SGPT 14 U/L (13-56); Albumin, Serum 3.5 g/dL (3.2-5.0); Alkaline Phosphatase 71 U/L (45-117); Anion Gap 4 (5-15); BUN 28 mg/dL (7-18); BUN/Creat Ratio 15.7 RATIO (10-20); Calcium,Total 9.5 mg/dL (8.5-10.1); Chloride 108 mmol/L (98-107); Cholesterol 134 mg/dL (200); Creatinine, Serum 1.78 mg/dL (0.55-1.02); EST Glomerular Filtration Rate 29 mL/min (>60); Est Glom Filt Rate - Afr Amer 35 mL/min (>60); Globulin 4.3 g/dL (2.2-4.2); Glucose 113 mg/dL (74-106); High Density Lipoprotein 46 mg/dL; Lipase 460 U/L (73-393); Potassium 5.2 mmol/L (3.5-5.1); Protein, Total 7.8 g/dL (6.4-8.2); Sodium Level 140 mmol/L (136-145); Triglycerides 106 mg/dL; Very Low Density Lipoprotein 21 mg/dL (5-40)
== END ==
PROVIDERS: PCP Family Medicine; Visit Provider Family Medicine
DX: E11.65 Type 2 diabetes mellitus with hyperglycemia (principal); I10 Essential (primary) hypertension; E53.8 Deficiency of other specified B group vitamins; R17 Unspecified jaundice; R11.0 Nausea
CPT/HCPCS: 36415; 80053; 80061; 82607; 83690; 85025

== ENCOUNTER → 2021-01-16 16:01 | Outpatient (CLI) | payer MEDICARE, MEDICAID, SELFPAY ==
[2020-04-15 13:17] VITALS: BMI 25.6
--- NOTE | 2021-01-16 16:23 | RAD_ITS ---
STUDY: X-RAY CHEST REASON FOR EXAM: Female, 80 years old. ACUTE DYSPNEA,EDEMA,CAD CHF TECHNIQUE: PA and lateral views of the chest. COMPARISON: 04/15/2020 FINDINGS: The lungs are clear and expanded. There is no demonstrated pleural abnormality. There is moderate cardiac enlargement. Normal mediastinum and sridhar. Normal visualized pulmonary arteries. Normal visualized aortic arch and descending thoracic aorta. Normal visualized thoracic spine. Status post right shoulder reverse arthroplasty. There is no demonstrated abnormality of the visualized soft tissue structures of the upper abdomen. RAD/Chest PA and Lateral IMPRESSION: No active disease per Electronically Signed: Edi Cheng MD at 16:41 EDT Tel , Service support ,
[2021-01-16 17:39] LABS: Absolute Lymphocyte Count 0.75 X10^3/uL (0.83-4.51); Absolute Neutrophil Count 5.2 X10^3/uL (2.0-7.7); Basophil# 0.03 X10^3/uL; Basophil% 0.5 % (0-1); Eosinophil# 0.17 X10^3/uL; Eosinophils% 2.6 % (0-5); Hematocrit 34.4 % (37-47); Hemoglobin 10.1 g/dL (12.0-15.0); Lymphocyte # 0.75 X10^3/ul (4.0); Lymphocyte % 11.4 % (19-41); Mean Corp Hgb Conc 29.4 g/dL (32-36); Mean Corpuscular Hgb 26.9 pg (27.0-32.0); Mean Corpuscular Volume 91.7 fL (81-99); Mean Platelet Vol. 12.1 fl (6.2-12.0); Monocyte# 0.38 X10^3/uL; Monocyte% 5.8 % (0-10); NRBC Flagged by Analyzer 0 % (0-5); Neutrophil # 5.21 X10^3/uL (2.7-7.7); Neutrophil % 79.4 % (47-70); Platelet Count 192 K/mm3 (150-450); RBC Distribution Width CV 15.4 % (11.6-14.6); RBC Distribution Width SD 51.5 fl (35.1-43.9); Red Blood Count 3.75 M/mm3 (4.2-5.4); White Blood Count 6.6 K/mm3 (4.4-11.0)
[2021-01-16 18:29] LABS: BNP,B-Type NATRIURETIC PEPTIDE 72.1 pg/mL (0-100)
[2021-01-16 18:31] LABS: Anion Gap 3 (5-15); BUN 26 mg/dL (7-18); BUN/Creat Ratio 14.5 RATIO (10-20); Calcium,Total 9.5 mg/dL (8.5-10.1); Chloride 109 mmol/L (98-107); Creatinine, Serum 1.79 mg/dL (0.55-1.02); EST Glomerular Filtration Rate 29 mL/min (>60); Est Glom Filt Rate - Afr Amer 35 mL/min (>60); Glucose 77 mg/dL (74-106); Potassium 4.3 mmol/L (3.5-5.1); Sodium Level 140 mmol/L (136-145)
== END ==
PROVIDERS: PCP Family Medicine; Visit Provider Family Medicine
DX: I50.21 Acute systolic (congestive) heart failure (principal); N18.30 Chronic kidney disease, stage 3 unspecified; I25.10 Atherosclerotic heart disease of native coronary artery without angina pectoris
CPT/HCPCS: 36415; 71046; 80048; 83880; 85025

== ENCOUNTER → 2021-05-26 17:25 | Outpatient (CLI) | payer MEDICARE, MEDICAID, SELFPAY | PROVIDERS: PCP Family Medicine; Visit Provider Family Medicine | DX: R30.0 Dysuria (principal); R82.81 Pyuria | CPT/HCPCS: 87077; 87086; 87088; 87186 ==

== ENCOUNTER 2021-05-31 19:35 | Emergency (ER) | payer MEDICARE, MEDICAID, SELFPAY ==
[2021-05-31 19:36] VITALS: BP 133/63; PULSE 101; RESP 18; TEMP 37.1; O2SAT 99; BMI 27.8
--- NOTE | 2021-05-31 20:10 | ED.RN ---
OK PER PT FOR STAFF TO TALK TO ZITA MEIER. DAUGHTER # [phone]
--- NOTE | 2021-05-31 20:34 | EDS_ITS ---
HPI HPI - Fall History of Present Illness Chief Complaint: Fall Narrative Narrative: Fell at home after tripping on something on the carpet, 2 days ago. Injured her left arm and was unable to get up and has basically been lying on the floor for 2 days yelling for help. She was remotely vaccinated for Covid. She denies having any symptoms of an acute illness lately. PFSH PFSH Medical History Abnormal electrocardiogram Atherosclerosis of coronary artery of [place] heart without angina pectoris Chronic kidney disease (CKD) Chronic neck pain COPD (chronic obstructive pulmonary disease) Diabetes mellitus Elevated troponin (04/28/19) Essential (primary) hypertension Hyperlipidemia Left carpal tunnel syndrome Near syncope Neoplasm of skin of eyebrow Neoplasm of skin of forehead Neoplasm of skin of left lateral forehead Neoplasm of skin of nose Neoplasm of skin of right lateral forehead Nicotine dependence Osteoporosis Paresthesia of left arm Right carpal tunnel syndrome Home Medications metformin 1,000 mg PO BID 03/22/15 [History Last Taken Unknown] atorvastatin 40 mg PO QHS 02/26/17 [History Last Taken Unknown] glimepiride 4 mg tablet 2 mg PO DAILY tab 07/15/19 [History Last Taken Unknown] naproxen 500 mg tablet,delayed release 500 mg PO BID 03/03/20 [History Last Taken Unknown] aspirin 81 mg tablet,delayed release 81 mg PO DAILY #90 tab 03/28/20 [Rx Last Taken 04/15/20] ferrous gluconate 240 mg PO DAILY 05/31/21 [History Last Taken Unknown] lisinopril 10 mg PO DAILY 05/31/21 [History Last Taken Unknown] omeprazole 20 mg PO DAILY 05/31/21 [History Last Taken Unknown] sulfamethoxazole-trimethoprim 1 tab PO BID 05/31/21 [History Last Taken Unknown] Allergy/AdvReac Type Severity Reaction Status Date / Time Penicillins [PCN] Allergy Swelling Verified 05/31/21 19:39 Family History Sister Arthritis Mother Breast cancer Cancer Surgical History History of carpal tunnel surgery History of carpal tunnel surgery of left wrist History of hysterectomy History of left heart catheterization (04/18/20) History of right knee surgery History of shoulder surgery Status post right foot surgery Social History Smoking Status: Current every day smoker tobacco type: cigarettes counseling given: provider counseling and counseling >10 minutes alcohol intake: current substance use type: does not use additional social history: DOES NOT USE ASPIRIN DOES USE IBUPROFEN ROS ROS ED Constitutional Constitutional ED: Reports malaise and other Details: Thirsty ; Denies chills or fever(s) Eyes Eyes: Denies change in vision or diplopia ENT ENT ED: Denies ear pain, epistaxis, facial pain or rhinorrhea Cardiovascular Cardiovascular: Denies chest pain or palpitations Respiratory/Chest Respiratory/Chest: Reports other Details: Chronic nonproductive cough and dyspnea with exertion unchanged ; Denies dyspnea Gastrointestinal Gastrointestinal: Denies abdominal pain, diarrhea, melena, nausea or vomiting Genitourinary Genitourinary ED: Denies dysuria or hematuria Musculoskeletal Musculoskeletal: Reports extremity pain; Denies back pain or neck pain Integumentary Denies abscess, Abrasions, laceration or rash Neurologic Neurologic: Denies confusion, headache(s), paresthesias or weakness EXAM Physical Exam Const Vital Signs: 05/31/21 19:36 05/31/21 20:36 05/31/21 21:00 Temperature 98.8 F Temperature Source Oral Pulse Rate 101 H 99 102 H Respiratory Rate 18 18 18 Blood Pressure 133/63 H 134/70 H 127/87 H Blood Pressure Mean 86 91 100 Pulse Ox 99 96 97 Oxygen Delivery Method Room Air 05/31/21 22:00 Temperature Temperature Source Pulse Rate Respiratory Rate 16 Blood Pressure Blood Pressure Mean Pulse Ox Oxygen Delivery Method Positive well nourished and well developed Constitutional Narrative: Keenly alert, conversive in full sentences in no distress General Appearance ED: well developed and NAD HEENT Reports TM's clear and dry mucous membranes atraumatic Face and Sinus: Negative for facial tenderness Tympanic Membrane ED: Yes TM's clear Mouth ED: Yes dry mucous membranes Mouth: dry mucous membranes Eyes PERRL and EOMs intact bilaterally Visual Acuity: other Other Details: no entrapment or pain with extraocular movements Neck full ROM and supple General: Negative for tenderness Chest Wall inspection of chest normal and palpation of chest normal Chest: symmetrical chest wall rise; Negative for crepitus or tenderness Resp normal respiratory effort and clear to auscultation bilaterally Percussion: other equal BS bilat Cardio no murmurs Rate: regular rate and tachycardic Rhythm: regular rhythm GI normal to inspection, nondistended, normoactive bowel sounds, soft to palpation and non-tender Back/Spine normal ROM Cervical Spine: Negative for cervical spine tenderness Thoracic Spine / Upper Back: Negative for thoracic spinal tenderness Lumbar Spine / Lower Back: Negative for lumbar spinal tenderness Extremity normal to inspection and full ROM Extremity Narrative: Tender swollen ecchymotic left upper arm. Nontender at the acromioclavicular joint. No deformities. Limited range of motion of left upper extremity except she can move the hand without any difficulty. Nontender at the elbow and distally. Neurovascularly intact distally. Very tender at the right greater trochanter of the hip, with painful range of motion. No deformities. Neurovascularly intact distally. Otherwise extremities atraumatic and full range of motion. General Extremety ED: Negative for tenderness Neuro oriented x3, CN's II-XII intact bilaterally, moves all extremities, no focal motor deficits and no sensory deficits noted [place] Coma Scale: document GCS findings Spontaneous Obeys Commands Oriented 15 Sensorium / Orientation: awake and alert Psych mental status grossly normal and thought process normal Skin no wounds Lesions: no lesions Rashes: no rashes MDM MDM MDM Narrative Medical decision making narrative: Work-up shows NSTEMI without evidence of STEMI, JODI, comminuted fractured midshaft humerus into the proximal humerus with involvement of the greater tuberosity, and a right hip intertrochanteric fracture. Her Covid is negative. She was given IV fluids, analgesics. She is clinically and hemodynamically stable with pulse ox 99% on room air. I discussed with hospitalist and orthopedics here, however orthopedics states that this left upper extremity fracture needs operative repair and is complicated, requiring an upper extremity specialist. We do not have that here, she will require transfer for this reason. Patient shows open system since she has been to the [facility] in the past, discussed with Luis Miguel in [place], Dr. Willis accepts her to the emergency department. Of note, the radiologist incorrectly interpreted the hip x-ray as not fractured. Lab Data Attestation: I reviewed the patient's lab results. Labs: Laboratory Results - last 24 hr 05/31/21 05/31/21 20:00 20:00 WBC 17.2 H RBC 3.26 L Hgb 8.3 L Hct 28.1 L MCV 86.2 MCH 25.5 L MCHC 29.5 L RDW Std Deviation 47.8 H RDW Coeff of Hoang 15.5 H Plt Count 209 MPV 12.3 H Immature Gran % (Auto) 0.600 Neut % (Auto) 82.9 H Lymph % (Auto) 9.3 L [place] % (Auto) 6.7 Eos % (Auto) 0.3 Baso % (Auto) 0.2 Absolute Neuts (auto) 14.2 H Absolute Lymphs (auto) 1.59 Nucleated RBC % 0.2 Sodium 142 Potassium 4.8 Chloride 111 H Carbon Dioxide 27.0 Anion Gap 4 L BUN 52 H Creatinine 2.77 H Estim Creat Clear Calc 14.82 Est GFR (MDRD) Af Amer 21 L Est GFR (MDRD) Non-Af 18 L BUN/Creatinine Ratio 18.8 Glucose 169 H Calcium 10.2 H Total Creatine Kinase 995 H Troponin I High Sens 6082 H* Radiography Diagnostic Testing: Radiology Impression Chest X-Ray 05/31/21 21:20 IMPRESSION: 1. Mildly displaced fracture of the left proximal humeral shaft. 2. Stable cardiomegaly without acute pulmonary disease. Electronically Signed: Shun Delcid DO at 21:45 EDT Tel [phone], Service support , Hip/Pelvis X-Ray 05/31/21 21:20 IMPRESSION: Degenerative changes right hip. There is no visualized fracture or dislocation. Electronically Signed: Shun Delcid DO at 21:48 EDT Tel [phone], Service support , Humerus X-Ray 05/31/21 21:20 IMPRESSION: Displaced fracture of the proximal humeral shaft. Electronically Signed: Shun Delcid DO at 21:46 EDT Tel [phone], Service support , EKG Initial EKG: Attestation: I personally reviewed and interpreted this EKG as follows: Interpretation: Sinus Tachycardia and S-T Depression (laterally w/ inverted T waves, w/o recip GENESIS) Discharge Plan Triage Chief Complaint: Fall ED Provider: Morgan Nuñez Dx/Rx/DC Orders Clinical Impression: Non-ST elevation HI (NSTEMI), JODI (acute kidney injury), Rhabdomyolysis, Closed displaced comminuted fracture of shaft of left humerus, Closed intertrochanteric fracture of right hip Prescriptions: No Action naproxen 500 mg tablet,delayed release (DR/EC) 500 mg PO BID RF: 0 metformin 1,000 MG tablet 1,000 mg PO BID RF: 0 glimepiride 4 mg tablet 2 mg PO DAILY RF: 0 atorvastatin 40 MG tablet 40 mg PO QHS RF: 0 sulfamethoxazole-trimethoprim 800-160 mg tablet 1 tab PO BID RF: 0 lisinopril 10 mg tablet 10 mg PO DAILY RF: 0 ferrous gluconate 240 mg (27 mg iron) tablet 240 mg PO DAILY RF: 0 omeprazole 20 mg capsule,delayed release(DR/EC) 20 mg PO DAILY RF: 0 aspirin [Adult Aspirin Regimen] 81 mg tablet,delayed release (DR/EC) 81 mg PO DAILY Qty: 90 RF: 3 Primary Care Provider: Moshe Matos Referrals: Moshe Matos MD [Primary Care Provider] - Disposition Disposition: Acute Care Hospital Discharge Location: [facility]
[2021-05-31 20:36] VITALS: BP 134/70; PULSE 99; RESP 18; O2SAT 96
[2021-05-31 21:00] VITALS: BP 127/87; PULSE 102; RESP 18; O2SAT 97
--- NOTE | 2021-05-31 21:20 | RAD_ITS ---
STUDY: X-RAY CHEST REASON FOR EXAM: Female, 80 years old. Fall. COPD. TECHNIQUE: Single AP portable view of the chest. COMPARISON: 01/16/2021. FINDINGS: The lungs are mildly hyperexpanded with chronic interstitial changes. There is no acute infiltrate or mass. There is no demonstrated pleural abnormality. Able cardiomegaly. Normal mediastinum and sridhar. Normal visualized pulmonary arteries. Normal visualized aortic arch and descending thoracic aorta. There are diffuse degenerative changes of the visualized thoracic spine. Stable right shoulder replacement. There is a oblique mildly displaced fracture of the proximal femoral shaft not seen on the prior study. There is no demonstrated abnormality of the visualized soft tissue structures of the upper abdomen. RAD/Chest 1 View (Portable) IMPRESSION: 1. Mildly displaced fracture of the left proximal humeral shaft. 2. Stable cardiomegaly without acute pulmonary disease. Electronically Signed: Shun Delcid DO at 21:45 EDT Tel [phone], Service support ,
--- NOTE | 2021-05-31 21:20 | RAD_ITS ---
STUDY: X-RAY - LEFT HUMERUS REASON FOR EXAM: Female, 80 years old. Fell onto the ground Saturday. Remaining ground for 2 days. Left arm pain.. TECHNIQUE: 2 view(s) of the humerus. COMPARISON: None. FINDINGS: Displaced oblique comminuted fracture of the proximal numerous. The distal fracture fragment is displaced posteriorly and cephalad. There are degenerative changes of the shoulder. The elbow appears intact. There is generalized osteopenia. There is no demonstrated soft tissue abnormality. RAD/Humerus min 2 Views IMPRESSION: Displaced fracture of the proximal humeral shaft. Electronically Signed: Shun Delcid DO at 21:46 EDT Tel [phone], Service support ,
--- NOTE | 2021-05-31 21:20 | RAD_ITS ---
STUDY: X-RAY - PELVIS AND RIGHT HIP REASON FOR EXAM: Female, 80 years old. Fall Saturday, remaining on the ground for 2 days. Right hip pain. TECHNIQUE: 3 views of the pelvis and hip. COMPARISON: None. FINDINGS: There is a non-specific bowel gas pattern. Normal visualized soft tissue structures. Normal bilateral iliac wings, sacroiliac joints and visualized sacrum. Normal bilateral superior and inferior pubic rami. Normal pubic symphysis. Normal bilateral ischial tuberosities. Normal visualized right femoral head. There is osteoarthritic spur formation of the right acetabular rim. There is mild articular joint space narrowing of the right hip. RAD/HIP, UNI W/ Pelvis 2-3 Views IMPRESSION: Degenerative changes right hip. There is no visualized fracture or dislocation. Electronically Signed: Shun Delcid DO at 21:48 EDT Tel [phone], Service support ,
[2021-05-31 21:32] LABS: Anion Gap 4 (5-15); BUN 52 mg/dL (7-18); BUN/Creat Ratio 18.8 RATIO (10-20); CPK Total, Creatine Kinase 995 U/L (26-192); Calcium,Total 10.2 mg/dL (8.5-10.1); Chloride 111 mmol/L (98-107); Creatinine, Serum 2.77 mg/dL (0.55-1.02); EST Glomerular Filtration Rate 18 mL/min (>60); Est Glom Filt Rate - Afr Amer 21 mL/min (>60); Estimated Creatinine Clearance 14.82 ml/min; Glucose 169 mg/dL (74-106); Potassium 4.8 mmol/L (3.5-5.1); Sodium Level 142 mmol/L (136-145); Troponin-I HS 6082 pg/mL (3.0-54.0)
--- NOTE | 2021-05-31 21:33 | ED.RN ---
TROP OF 6082 REPORTED TO .
--- NOTE | 2021-05-31 21:36 | EKG12_ITS ---
Test Reason : PAIN Blood Pressure : / mmHG Vent. Rate : 103 BPM Atrial Rate : 103 BPM P-R Int : 174 ms QRS Dur : 090 ms QT Int : 350 ms P-R-T Axes : 002 005 180 degrees QTc Int : 458 ms Sinus tachycardia with Premature atrial complexes ST & T wave abnormality, consider lateral ischemia Abnormal ECG Confirmed by EUGENIE RASMUSSEN, MERON ([id number]), publication editor CORIN DAVIS ([id number]) on 06/05/2021 10:16:01 AM Referred By: BB Confirmed By:MERON TRAORE MD
[2021-05-31 21:41] LABS: Absolute Lymphocyte Count 1.59 X10^3/uL (0.83-4.51); Absolute Neutrophil Count 14.2 X10^3/uL (2.0-7.7); Basophil# 0.03 X10^3/uL; Basophil% 0.2 % (0-1); Eosinophil# 0.06 X10^3/uL; Eosinophils% 0.3 % (0-5); Hematocrit 28.1 % (37-47); Hemoglobin 8.3 g/dL (12.0-15.0); Lymphocyte # 1.59 X10^3/ul (0.83-4.51); Lymphocyte % 9.3 % (19-41); Mean Corp Hgb Conc 29.5 g/dL (32-36); Mean Corpuscular Hgb 25.5 pg (27.0-32.0); Mean Corpuscular Volume 86.2 fL (81-99); Mean Platelet Vol. 12.3 fl (6.2-12.0); Monocyte# 1.15 X10^3/uL; Monocyte% 6.7 % (0-10); NRBC Flagged by Analyzer 0.2 % (0-5); Neutrophil # 14.24 X10^3/uL (2.7-7.7); Neutrophil % 82.9 % (47-70); Platelet Count 209 K/mm3 (150-450); RBC Distribution Width CV 15.5 % (11.6-14.6); RBC Distribution Width SD 47.8 fl (35.1-43.9); Red Blood Count 3.26 M/mm3 (4.2-5.4); White Blood Count 17.2 K/mm3 (4.4-11.0)
[2021-05-31 21:49] LABS: Bacteria 0 SEEN /hpf (None Seen); Mucous, Urine 0 SEEN /hpf (<or=2+); Squamous Epithelial Cells - UA 0 SEEN /hpf (5-10)
[2021-05-31] MEDS: Morphine 4 MG/ML Syringe IV (21:56)
[2021-05-31] MEDS: Ondansetron 4 MG/2 ML Vial IV (21:56)
[2021-05-31] MEDS: 0.9% Normal Saline 1,000 ML 200 ML IV (21:56)
[2021-05-31 21:57] LABS: Color, Urine Yellow (Yellow); Glucose, Dipstick Normal (Normal); Ketone-Dipstick Negative (Negative); Leukocyte Esterase-Dipstick 25 /ul (Negative); Nitrite-Dipstick Negative (Negative); Occult Blood-Urine 250 /ul (Negative); Protein-Dipstick 500 mg/dl (Negative); Specific Gravity, Urine 1.015 (1.002-1.030); Urine Bilirubin Dipstick Negative (Negative); Urine Clarity Clear (Clear); Urine Urobilinogen Normal (Normal)
[2021-05-31 22:00] VITALS: RESP 16
[2021-05-31 22:05] LABS: Red Blood Cells-Urine 0-5 SEEN /hpf (0-5)
[2021-05-31 22:06] LABS: White Blood Cells 5-10 SEEN /hpf (0-5)
[2021-05-31 22:19] VITALS: BP 140/57; PULSE 96; RESP 18; TEMP 36.7; O2SAT 97
--- NOTE | 2021-05-31 22:23 | CON.PCM_ITS ---
Documented by User: DAGOBERTO Sneed 05/31/21 22:34 Assessment & Plan Assessment/Plan (1) Non-ST elevation [place] (NSTEMI): PLAN: Patient seen and evaluated however awaiting evaluation by o rthopedics for whether patient can stay here and undergo surgical repair of left humeral fracture or if patient will need to be transferred to tertiary care center for surgical intervention. If patient unable to be transferred in a timely fashion plan is as follows. 1. Non-STEMI -Admit to PCU for cardiac monitoring -Trend cardiac enzymes, initial value 6082 -Due to history of hyperlipidemia we will obtain lipid panel along with CBC and CMP daily -Initiate heparin drip with bolus. -Obtain echocardiogram in a.m. -Cardiology consult ordered -Normal saline ordered at 150ml/hr -Vital signs per protocol, stable at this time -PT and OT to eval and treat 2. JODI superimposed on chronic kidney disease stage IV not on dialysis -Likely secondary to dehydration from lying on floor for 2 days -CMP ordered daily -Normal saline ordered at 150ml/hr 3. Rhabdomyolysis -See #1&2 4. Left humeral fracture -Dr. Brambila notified by ER physician, will see patient -Graduated pain management scale ordered 5. Right hip fracture -Dr. Brambila notified by ER physician, will see patient -Graduated pain management scale ordered 6. Hypertension -Continue home medication regimen -Vital signs per protocol 7. Diabetes mellitus type 2 -Hold p.o. home medications due to JODI -AC at bedtime blood sugars with sliding scale insulin ordered 7. Tobacco use -Inpatient smoking cessation ordered -Nicotine patch ordered -Patient continues to smoke 1 pack/day counseled patient on quitting DVT prophylaxis-SCDs This patient was seen by DAGOBERTO Sneed under the supervision of Dr. Suresh. HPI Consult Data Date of Consult: 05/31/21 HPI Narrative HPI Narrative: RAMIREZ MUSE,Patient is a 80-year-old female who reports falling approximately 2 days ago. Patient states that she has been laying on the floor unable to get herself up and yelling for help. Patient states that her right hip and left arm are painful and that she was unable to use them to move herself off the floor. Patient also complains of continued dry cough and dyspnea with exertion however this is unchanged from patient's baseline. Patient denies fever, chills, chest pain, nausea, vomiting. [facility] Medical History Abnormal electrocardiogram Atherosclerosis of coronary artery of [place] heart without angina pectoris Chronic kidney disease (CKD) Chronic neck pain COPD (chronic obstructive pulmonary disease) Diabetes mellitus Elevated troponin (04/28/19) Essential (primary) hypertension Hyperlipidemia Left carpal tunnel syndrome Near syncope Neoplasm of skin of eyebrow Neoplasm of skin of forehead Neoplasm of skin of left lateral forehead Neoplasm of skin of nose Neoplasm of skin of right lateral forehead Nicotine dependence Osteoporosis Paresthesia of left arm Right carpal tunnel syndrome Home Medications metformin 1,000 mg PO BID 03/22/15 [History Last Taken Unknown] atorvastatin 40 mg PO QHS 02/26/17 [History Last Taken Unknown] glimepiride 4 mg tablet 2 mg PO DAILY tab 07/15/19 [History Last Taken Unknown] naproxen 500 mg tablet,delayed release 500 mg PO BID 03/03/20 [History Last Taken Unknown] aspirin 81 mg tablet,delayed release 81 mg PO DAILY #90 tab 03/28/20 [Rx Last Taken 04/15/20] ferrous gluconate 240 mg PO DAILY 05/31/21 [History Last Taken Unknown] lisinopril 10 mg PO DAILY 05/31/21 [History Last Taken Unknown] omeprazole 20 mg PO DAILY 05/31/21 [History Last Taken Unknown] sulfamethoxazole-trimethoprim 1 tab PO BID 05/31/21 [History Last Taken Unknown] Allergy/AdvReac Type Severity Reaction Status Date / Time Penicillins [PCN] Allergy Swelling Verified 05/31/21 19:39 Family History Sister Arthritis Mother Breast cancer Cancer Surgical History History of carpal tunnel surgery History of carpal tunnel surgery of left wrist History of hysterectomy History of left heart catheterization (04/18/20) History of right knee surgery History of shoulder surgery Status post right foot surgery Social History Smoking Status: Current every day smoker tobacco type: cigarettes counseling given: provider counseling and counseling >10 minutes alcohol intake: current substance use type: does not use additional social history: DOES NOT USE ASPIRIN DOES USE IBUPROFEN ROS Constitutional Constitutional: Reports fatigue, malaise and weakness; Denies chills or fever(s) Cardiovascular Cardiovascular: Reports nausea; Denies chest pain, edema, lightheadedness, syncope, tachypnea or vomiting Respiratory/Chest Respiratory/Chest: Reports dry cough; Denies change in mental status, dyspnea, tachypnea or wheezing Gastrointestinal Gastrointestinal: Denies abdominal pain, constipation, diarrhea, nausea or vomiting Genitourinary Genitourinary: Denies difficulty urinating, flank pain or urinary frequency Musculoskeletal Musculoskeletal: Reports difficulty walking, extremity pain and joint pain Integumentary Integumentary: Denies dry skin Neurologic Neurologic: Denies abnormal speech, confusion, dizziness, headache(s) or syncope Psychiatric Psychiatric: Denies anxiety or depression Hematologic/Lymphatic Hematologic/Lymphatic: Reports none Physical Exam Const alert, oriented x3 and no apparent distress HEENT normocephalic and head/scalp atraumatic Eyes conjunctivae normal and no scleral icterus Neck full ROM, supple and no JVD Chest inspection of chest normal and palpation of chest normal Resp normal respiratory effort, normal air movement and clear to auscultation bilaterally Cardio regular rate, regular rhythm, S1 normal heart sound, S2 normal heart sound and peripheral pulses 2+ throughout GI normal to inspection, nondistended, normoactive bowel sounds, soft to palpation and non-tender Extremity Left Upper Extremity: upper arm Positive for inspection (Swollen and ecchymotic), palpation (Tender) and neurovascular exam (Intact) Right Lower Extremity: hip joint inspection (Swollen), palpation (Tender), ROM (Limited due to pain) and neurovascular exam (Intact) Skin no rashes or lesions noted and no wounds General Skin Exam: ecchymosis Neuro oriented x3, no focal motor deficits and no sensory deficits noted Psych mental status grossly normal, thought process normal, cooperative, affect normal and speech normal Lab / Micro Data Result Diagrams: 05/31/21 20:00 05/31/21 20:00 Labs: Laboratory Results - last 24 hr 05/31/21 20:00: WBC 17.2 H, RBC 3.26 L, Hgb 8.3 L, Hct 28.1 L, MCV 86.2, MCH 25 .5 L, MCHC 29.5 L, RDW Std Deviation 47.8 H, RDW Coeff of Hoang 15.5 H, Plt Count 209, MPV 12.3 H, Immature Gran % (Auto) 0.600, Neut % (Auto) 82.9 H, Lymph % (Auto) 9.3 L, [place] % (Auto) 6.7, Eos % (Auto) 0.3, Baso % (Auto) 0.2, Absolute Neuts (auto) 14.2 H, Absolute Lymphs (auto) 1.59, Nucleated RBC % 0.2 05/31/21 20:00: Sodium 142, Potassium 4.8, Chloride 111 H, Carbon Dioxide 27.0, Anion Gap 4 L, BUN 52 H, Creatinine 2.77 H, Estim Creat Clear Calc 14.82, Est GFR (MDRD) Af Amer 21 L, Est GFR (MDRD) Non-Af 18 L, BUN/Creatinine Ratio 18.8, Glucose 169 H, Calcium 10.2 H, Total Creatine Kinase 995 H, Troponin I High Sens 6082 H* 05/31/21 21:41: Urine Color Yellow, Urine Clarity Clear, Urine pH 6.0, Ur Specific [place] 1.015, Urine Protein 500 H, Urine Glucose (UA) Normal, Urine Ketones Negative, Urine Occult Blood 250 H, Urine Nitrite Negative, Urine Bilirubin Negative, Urine Urobilinogen Normal, Ur Leukocyte Esterase 25 H, Urine RBC 0-5 SEEN, Urine WBC 5-10 SEEN, Ur Squamous Epith Cells 0 SEEN, Urine Bacteria 0 SEEN, Urine Mucus 0 SEEN Micro: Microbiology 05/31/21 21:42 Nasal Secretion SARS-CoV-2 Antigen (Rapid) - Final Radiology Impression Chest X-Ray 05/31/21 21:20 IMPRESSION: 1. Mildly displaced fracture of the left proximal humeral shaft. 2. Stable cardiomegaly without acute pulmonary disease. Electronically Signed: Shun Delcid DO at 21:45 EDT Tel [phone], Service support , Hip/Pelvis X-Ray 05/31/21 21:20 IMPRESSION: Degenerative changes right hip. There is no visualized fracture or dislocation. Electronically Signed: Shun Delcid DO at 21:48 EDT Tel [phone], Service support , Humerus X-Ray 05/31/21 21:20 IMPRESSION: Displaced fracture of the proximal humeral shaft. Electronically Signed: Shun Delcid at 21:46 EDT Tel [phone], Service support , Documented by User: Dr. Lulu Suresh MD 05/31/21 22:35 HPI Consult Data Date of Consult: 05/31/21 [facility] Medical History Abnormal electrocardiogram Atherosclerosis of coronary artery of [place] heart without angina pectoris Chronic kidney disease (CKD) Chronic neck pain COPD (chronic obstructive pulmonary disease) Diabetes mellitus Elevated troponin (04/28/19) Essential (primary) hypertension Hyperlipidemia Left carpal tunnel syndrome Near syncope Neoplasm of skin of eyebrow Neoplasm of skin of forehead Neoplasm of skin of left lateral forehead Neoplasm of skin of nose Neoplasm of skin of right lateral forehead Nicotine dependence Osteoporosis Paresthesia of left arm Right carpal tunnel syndrome Home Medications metformin 1,000 mg PO BID 03/22/15 [History Last Taken Unknown] atorvastatin 40 mg PO QHS 02/26/17 [History Last Taken Unknown] glimepiride 4 mg tablet 2 mg PO DAILY tab 07/15/19 [History Last Taken Unknown] naproxen 500 mg tablet,delayed release 500 mg PO BID 03/03/20 [History Last Taken Unknown] aspirin 81 mg tablet,delayed release 81 mg PO DAILY #90 tab 03/28/20 [Rx Last Taken 04/15/20] ferrous gluconate 240 mg PO DAILY 05/31/21 [History Last Taken Unknown] lisinopril 10 mg PO DAILY 05/31/21 [History Last Taken Unknown] omeprazole 20 mg PO DAILY 05/31/21 [History Last Taken Unknown] sulfamethoxazole-trimethoprim 1 tab PO BID 05/31/21 [History Last Taken Unknown] Allergy/AdvReac Type Severity Reaction Status Date / Time Penicillins [PCN] Allergy Swelling Verified 05/31/21 19:39 Family History Sister Arthritis Mother Breast cancer Cancer Surgical History History of carpal tunnel surgery History of carpal tunnel surgery of left wrist History of hysterectomy History of left heart catheterization (04/18/20) History of right knee surgery History of shoulder surgery Status post right foot surgery Social History Smoking Status: Current every day smoker tobacco type: cigarettes counseling given: provider counseling and counseling >10 minutes alcohol intake: current substance use type: does not use additional social history: DOES NOT USE ASPIRIN DOES USE IBUPROFEN Lab / Micro Data Result Diagrams: 05/31/21 20:00 05/31/21 20:00
[2021-05-31] MEDS: Aspirin 81 MG TAB.CHEW 162 MG PO (22:32)
[2021-05-31 23:00] VITALS: BP 142/58; PULSE 94; RESP 18; O2SAT 97
[2021-06-01] VITALS: BP 127/63; PULSE 89; RESP 16; O2SAT 97
[2021-06-01] MEDS: HYDROmorphone 0.5 MG/0.5 ML SYRINGE IV (00:33)
== END 2021-06-01 00:42 | disposition short-term general hospital (02) ==
PROVIDERS: Emergency Provider Emergency Medicine; PCP Family Medicine
DX: S72.141A Displaced intertrochanteric fracture of right femur, initial encounter for closed fracture (principal); S42.202A Unspecified fracture of upper end of left humerus, initial encounter for closed fracture; S42.352A Displaced comminuted fracture of shaft of humerus, left arm, initial encounter for closed fracture; W18.09XA Striking against other object with subsequent fall, initial encounter; I21.4 Non-ST elevation (NSTEMI) myocardial infarction; N17.9 Acute kidney failure, unspecified; M62.82 Rhabdomyolysis; D64.9 Anemia, unspecified; E11.22 Type 2 diabetes mellitus with diabetic chronic kidney disease; E78.5 Hyperlipidemia, unspecified; F32.9 Major depressive disorder, single episode, unspecified; G89.29 Other chronic pain; I13.10 Hypertensive heart and chronic kidney disease without heart failure, with stage 1 through stage 4 chronic kidney disease, or unspecified chronic kidney disease; I25.10 Atherosclerotic heart disease of native coronary artery without angina pectoris; J44.9 Chronic obstructive pulmonary disease, unspecified; K21.9 Gastro-esophageal reflux disease without esophagitis; M81.0 Age-related osteoporosis without current pathological fracture; N18.4 Chronic kidney disease, stage 4 (severe); Z79.1 Long term (current) use of non-steroidal anti-inflammatories (NSAID); Z79.4 Long term (current) use of insulin; Z79.82 Long term (current) use of aspirin; F17.210 Nicotine dependence, cigarettes, uncomplicated; Y92.9 Unspecified place or not applicable; Y99.9 Unspecified external cause status
CPT/HCPCS: 71045; 73060; 73502; 80048; 81001; 82550; 84484; 85025; 87426; 93005; 96361; 96374; 96375; 99285; J7030; A4216; J2405

== ENCOUNTER 2021-06-11 00:41 | Emergency (ER) | payer MEDICARE, MEDICAID, SELFPAY ==
[2021-06-11 00:43] VITALS: BP 170/90; PULSE 102; RESP 18; TEMP 36.3; O2SAT 100; BMI 31.1
[2021-06-11 00:56] LABS: Bedside Glucose 43 mg/dL (70-110)
--- NOTE | 2021-06-11 01:06 | EDS_ITS ---
HPI History of Present Illness Chief Complaint: Hypoglycemia Informant: patient and EMS Narrative Narrative: Patient sent from [place] for reported hypoglycemia with blood glucose of 40. Patient denies any symptoms. She is a diabetic. She takes Metformin twice a day, also notes to be on glimepiride 2 mg in the mornings for her paperwork. She denies nausea or vomiting sweats or tremors. Denies cough. Denies urinary symptoms. She was given liquid orange juice at the facility she did not eat. From quick review of records noted she was here May 31 for a fall left humeral fracture right hip fracture JODI NSTEMI and was sent to [facility] due to orthopedic recommendations for possible requiring humeral repair without upper extremity specialist here. Patient states she has been doing rehab takes 4 steps with assistance at this time. Reviewing of clinisync, from discharge records noted she had an ORIF of the right hip. Left humeral was not repaired. She had [place] I secondary to rhabdomyolysis. She had a non-STEMI with echocardiogram noting EF 45 to 50% with apical and mid inferoseptal to inferior hypokinesis. She had pericardial effusion that was being monitored with repeat echocardiograms that were stable and improving. She is started on colchicine. Recommendations from cardiology at that time was for outpatient ischemic evaluation. She also had CT there concerning for subacute to acute stroke MRI confirmed stroke lesion. She is already on aspirin and statin medication. It did confirm that her glimepiride and Metformin was restarted at discharge back to alf facility. [facility] Medical History Abnormal electrocardiogram Atherosclerosis of coronary artery of [place] heart without angina pectoris Chronic kidney disease (CKD) Chronic neck pain COPD (chronic obstructive pulmonary disease) Diabetes mellitus Elevated troponin (04/28/19) Essential (primary) hypertension Hyperlipidemia Left carpal tunnel syndrome Near syncope Neoplasm of skin of eyebrow Neoplasm of skin of forehead Neoplasm of skin of left lateral forehead Neoplasm of skin of nose Neoplasm of skin of right lateral forehead Nicotine dependence Osteoporosis Paresthesia of left arm Right carpal tunnel syndrome Home Medications metformin 1,000 mg PO BID 03/22/15 [History Last Taken Unknown] atorvastatin 40 mg PO QHS 02/26/17 [History Last Taken Unknown] glimepiride 4 mg tablet 2 mg PO DAILY tab 07/15/19 [History Last Taken Unknown] aspirin 81 mg tablet,delayed release 81 mg PO DAILY #90 tab 03/28/20 [Rx Last Taken 04/15/20] ferrous gluconate 240 mg PO DAILY 05/31/21 [History Last Taken Unknown] lisinopril 10 mg PO DAILY 05/31/21 [History Last Taken Unknown] omeprazole 20 mg PO DAILY 05/31/21 [History Last Taken Unknown] amlodipine 2.5 mg PO DAILY 06/11/21 [History Last Taken Unknown] cephalexin 500 mg PO Q12 #14 cap 06/11/21 [Rx Last Taken Unknown] colchicine 0.6 mg PO DAILY 06/11/21 [History Last Taken Unknown] metoprolol tartrate 25 mg PO BID 06/11/21 [History Last Taken Unknown] Allergy/AdvReac Type Severity Reaction Status Date / Time Penicillins [PCN] Allergy Swelling Verified 06/11/21 00:51 Family History Sister Arthritis Mother Breast cancer Cancer Surgical History History of carpal tunnel surgery History of carpal tunnel surgery of left wrist History of hysterectomy History of left heart catheterization (04/18/20) History of right knee surgery History of shoulder surgery Status post right foot surgery Social History Smoking Status: Current every day smoker tobacco type: cigarettes counseling given: provider counseling and counseling >10 minutes alcohol intake: current substance use type: does not use additional social history: DOES NOT USE ASPIRIN DOES USE IBUPROFEN ROS ROS ED Constitutional Constitutional ED: Denies chills, fever(s) or sweats Eyes Eyes: Denies change in vision ENT ENT ED: Denies dysphagia or sore throat Cardiovascular Cardiovascular: Denies chest pain, leg edema, palpitations or racing heartbeat Respiratory/Chest Respiratory/Chest: Denies cough, dyspnea or dyspnea on exertion Gastrointestinal Gastrointestinal: Denies abdominal pain, diarrhea, nausea or vomiting Genitourinary Genitourinary ED: Denies dysuria, hematuria or urinary frequency Musculoskeletal Musculoskeletal: Denies back pain, extremity pain or neck pain Integumentary Denies rash or wounds Neurologic Neurologic: Denies headache(s), paresthesias or weakness EXAM Physical Exam Const Vital Signs: 06/11/21 00:43 06/11/21 03:05 Temperature 97.4 F L Temperature Source Temporal Pulse Rate 102 H 102 H Respiratory Rate 18 18 Blood Pressure 170/90 H Blood Pressure Mean 116 Pulse Ox 100 Oxygen Delivery Method Room Air Positive well nourished and well developed General Appearance ED: well developed and NAD HEENT Reports moist mucous membranes normocephalic and atraumatic Eyes PERRL, EOMs intact bilaterally and conjunctivae normal General Eye ED: Yes normal appearance of both eyes Neck no lymphadenopathy and supple General: Negative for tenderness Chest Wall Chest: Negative for tenderness Resp normal respiratory effort and normal air movement Effort and Inspection: symmetric chest movement; Negative for respiratory distress Cardio regular rate, regular rhythm and no murmurs Peripheral Pulses: pulses 2+ throughout GI normal to inspection, nondistended, normoactive bowel sounds and non-tender Palpation: Negative for guarding or rebound tenderness present Back/Spine no CVA tenderness and no thoracic nor lumbar tenderness Extremity normal to inspection Extremity Narrative: Right hip surgical incisions clean, dry, intact. General Extremety ED: Negative for edema or tenderness General Extremity: Negative for edema Neuro oriented x3 and no sensory deficits noted Sensorium / Orientation: awake and alert Skin no rashes or lesions noted and no wounds MDM MDM MDM Narrative Medical decision making narrative: Blood glucose was 40 on recheck on arrival. She started on orange juice. I did check labs with patient's history white count of 14 hemoglobin stable at 9.9. Creatinine stable at 1.52 glucose confirmed at 40. She is given D50. Additional juice and oral glucose intake was given. Urine was sent did no infection. Culture sent. She started on antibiotics. 0335: Recheck glucose after D50 107, after intake monitored recheck glucose 99. Patient discharged back to alf facility. Lab Data Labs: Laboratory Results - last 24 hr 06/11/21 06/11/21 06/11/21 00:45 00:45 00:51 WBC 14.0 H RBC 3.61 L Hgb 9.9 L Hct 31.9 L MCV 88.4 MCH 27.4 MCHC 31.0 L RDW Std Deviation 51.8 H RDW Coeff of Hoang 17.1 H Plt Count 196 MPV 12.5 H Immature Gran % (Auto) 0.600 Neut % (Auto) 86.6 H Lymph % (Auto) 5.6 L [place] % (Auto) 5.6 Eos % (Auto) 1.5 Baso % (Auto) 0.1 Absolute Neuts (auto) 12.1 H Absolute Lymphs (auto) 0.79 L Nucleated RBC % 0 Sodium 142 Potassium 4.8 Chloride 113 H Carbon Dioxide 25.0 Anion Gap 4 L BUN 36 H Creatinine 1.52 H Estim Creat Clear Calc 27.01 Est GFR (MDRD) Af Amer 42 L Est GFR (MDRD) Non-Af 35 L BUN/Creatinine Ratio 23.7 H Glucose 40 L* Calcium 9.3 Urine Color Urine Clarity Urine pH Ur Specific [place] Urine Protein Urine Glucose (UA) Urine Ketones Urine Occult Blood Urine Nitrite Urine Bilirubin Urine Urobilinogen Ur Leukocyte Esterase Urine RBC Urine WBC Ur Squamous Epith Cells Triple Phos Crystals Urine Bacteria Urine Mucus POC Glucose 43 L* 06/11/21 06/11/21 01:14 03:01 WBC RBC Hgb Hct MCV MCH MCHC RDW Std Deviation RDW Coeff of Hoang Plt Count MPV Immature Gran % (Auto) Neut % (Auto) Lymph % (Auto) [place] % (Auto) Eos % (Auto) Baso % (Auto) Absolute Neuts (auto) Absolute Lymphs (auto) Nucleated RBC % Sodium Potassium Chloride Carbon Dioxide Anion Gap BUN Creatinine Estim Creat Clear Calc Est GFR (MDRD) Af Amer Est GFR (MDRD) Non-Af BUN/Creatinine Ratio Glucose Calcium Urine Color Yellow Urine Clarity Cloudy Urine pH 8.0 Ur Specific [place] 1.010 Urine Protein 100 H Urine Glucose (UA) Normal Urine Ketones Negative Urine Occult Blood 150 H Urine Nitrite Positive H Urine Bilirubin Negative Urine Urobilinogen Normal Ur Leukocyte Esterase 500 H Urine RBC 0 SEEN Urine WBC >100 SEEN Ur Squamous Epith Cells 0 SEEN Triple Phos Crystals 3+ Urine Bacteria 0 SEEN Urine Mucus 0 SEEN POC Glucose 107 Discharge Plan Triage Chief Complaint: Hypoglycemia ED Provider: Abdulaziz Benito Dx/Rx/DC Orders Clinical Impression: Hypoglycemia associated with diabetes, Urinary tract infection Instructions: Urinary Tract Infections in Women, ED Hypoglycemia Oral Diabetic ... Prescriptions: New cephalexin [cephalexin] 500 MG capsule 500 mg PO Q12 Qty: 14 RF: 0 No Action metformin 1,000 MG tablet 1,000 mg PO BID RF: 0 glimepiride 4 mg tablet 2 mg PO DAILY RF: 0 atorvastatin 40 MG tablet 40 mg PO QHS RF: 0 lisinopril 10 mg tablet 10 mg PO DAILY RF: 0 ferrous gluconate 240 mg (27 mg iron) tablet 240 mg PO DAILY RF: 0 omeprazole 20 mg capsule,delayed release(DR/EC) 20 mg PO DAILY RF: 0 amlodipine 2.5 mg Tablet 2.5 mg PO DAILY RF: 0 metoprolol tartrate 25 mg Tablet 25 mg PO BID RF: 0 colchicine 0.6 mg Capsule 0.6 mg PO DAILY RF: 0 aspirin [Adult Aspirin Regimen] 81 mg tablet,delayed release (DR/EC) 81 mg PO DAILY Qty: 90 RF: 3 Primary Care Provider: Rufino Pina Referrals: Rufino Pina MD [Primary Care Provider] - Activity Restrictions/Additional Instructions: Take antibiotic as prescribed for urinary tract infection. Monitor blood glucose. Disposition Disposition: [facility]itentiary Facility Discharge Location: [facility]
[2021-06-11 01:15] LABS: Absolute Lymphocyte Count 0.79 X10^3/uL (0.83-4.51); Absolute Neutrophil Count 12.1 X10^3/uL (2.0-7.7); Basophil# 0.02 X10^3/uL; Basophil% 0.1 % (0-1); Eosinophil# 0.21 X10^3/uL; Eosinophils% 1.5 % (0-5); Hematocrit 31.9 % (37-47); Hemoglobin 9.9 g/dL (12.0-15.0); Lymphocyte # 0.79 X10^3/ul (0.83-4.51); Lymphocyte % 5.6 % (19-41); Mean Corpuscular Hgb 27.4 pg (27.0-32.0); Mean Corpuscular Volume 88.4 fL (81-99); Mean Platelet Vol. 12.5 fl (6.2-12.0); Monocyte# 0.79 X10^3/uL; Monocyte% 5.6 % (0-10); NRBC Flagged by Analyzer 0 % (0-5); Neutrophil # 12.13 X10^3/uL (2.7-7.7); Neutrophil % 86.6 % (47-70); Platelet Count 196 K/mm3 (150-450); RBC Distribution Width CV 17.1 % (11.6-14.6); RBC Distribution Width SD 51.8 fl (35.1-43.9); Red Blood Count 3.61 M/mm3 (4.2-5.4)
[2021-06-11 01:19] LABS: Bacteria 0 SEEN /hpf (None Seen); Mucous, Urine 0 SEEN /hpf (<or=2+); Red Blood Cells-Urine 0 SEEN /hpf (0-5); Squamous Epithelial Cells - UA 0 SEEN /hpf (5-10)
[2021-06-11 01:20] LABS: Color, Urine Yellow (Yellow); Glucose, Dipstick Normal (Normal); Ketone-Dipstick Negative (Negative); Leukocyte Esterase-Dipstick 500 /ul (Negative); Nitrite-Dipstick Positive (Negative); Occult Blood-Urine 150 /ul (Negative); Protein-Dipstick 100 mg/dl (Negative); Urine Bilirubin Dipstick Negative (Negative); Urine Clarity Cloudy (Clear); Urine Urobilinogen Normal (Normal)
[2021-06-11 01:27] LABS: Anion Gap 4 (5-15); BUN 36 mg/dL (7-18); BUN/Creat Ratio 23.7 RATIO (10-20); Calcium,Total 9.3 mg/dL (8.5-10.1); Chloride 113 mmol/L (98-107); Creatinine, Serum 1.52 mg/dL (0.55-1.02); EST Glomerular Filtration Rate 35 mL/min (>60); Est Glom Filt Rate - Afr Amer 42 mL/min (>60); Estimated Creatinine Clearance 27.01 ml/min; Glucose 40 mg/dL (74-106); Potassium 4.8 mmol/L (3.5-5.1); Sodium Level 142 mmol/L (136-145)
[2021-06-11 01:28] LABS: Triple Phosphate Crystals Ur 3+ /hpf (<or=1+)
[2021-06-11 01:30] LABS: White Blood Cells >100 SEEN /hpf (0-5)
[2021-06-11] MEDS: Dextrose 50%-Water 25 GM/50 ML DISP.SYRIN IV (01:33)
[2021-06-11] MEDS: Cephalexin 250 MG Capsule 500 MG PO (02:12)
[2021-06-11 03:05] VITALS: PULSE 102; RESP 18
[2021-06-11 03:11] LABS: Bedside Glucose 107 mg/dL (70-110)
[2021-06-11 03:41] LABS: Bedside Glucose 99 mg/dL (70-110)
[2021-06-11 04:10] VITALS: BP 168/70; PULSE 79; RESP 18
== END 2021-06-11 04:11 | disposition skilled nursing facility (03) ==
PROVIDERS: Emergency Provider Emergency Medicine; PCP Family Medicine
DX: E11.649 Type 2 diabetes mellitus with hypoglycemia without coma (principal); N39.0 Urinary tract infection, site not specified; F17.210 Nicotine dependence, cigarettes, uncomplicated; E11.22 Type 2 diabetes mellitus with diabetic chronic kidney disease; J44.9 Chronic obstructive pulmonary disease, unspecified; I25.10 Atherosclerotic heart disease of native coronary artery without angina pectoris; I12.9 Hypertensive chronic kidney disease with stage 1 through stage 4 chronic kidney disease, or unspecified chronic kidney disease; N18.9 Chronic kidney disease, unspecified; E78.5 Hyperlipidemia, unspecified; I25.2 Old myocardial infarction; G89.29 Other chronic pain; Z79.82 Long term (current) use of aspirin; Z79.84 Long term (current) use of oral hypoglycemic drugs; Z79.899 Other long term (current) drug therapy
CPT/HCPCS: 80048; 81001; 82962; 85025; 87077; 87086; 87088; 87186; 99285; P9612; A4216

== ENCOUNTER 2021-08-16 01:01 | Emergency (ER) | payer MEDICARE, MEDICAID, SELFPAY ==
[2021-08-16 01:01] VITALS: BP 138/17; PULSE 112; RESP 0; TEMP 35; O2SAT 42; BMI 25.7
[2021-08-16 01:03] VITALS: BP 138/117; PULSE 0; PULSE 31; RESP 0; TEMP 35; O2SAT 30
[2021-08-16] MEDS: 0.9% Normal Saline 1,000 ML 500 ML IV (01:03)
[2021-08-16 01:19] VITALS: PULSE 0; RESP 0; O2SAT 0
--- NOTE | 2021-08-16 01:20 | NURSING ---
nO JEWELRY OR BRUISING NOTED ON EXTREMETIES. PURPLE NAIL BENGALI PRSENT ON NAILS. ICE APPLIED TO EYES AND EYES CLOSED. PATIENT COVERED. IV AND TUBES REMAIN IN PLACE WHILE AWAIT [employer]TIT[employer] ASS[employer]ULT GUNNER CALL AND APPROVAL TO REMOVE.
--- NOTE | 2021-08-16 01:28 | EDS_ITS ---
HPI History of Present Illness Chief Complaint: CPR Narrative Narrative: Patient presents via EMS from [facility]. History and physical is limited secondary to patient condition. Per EMS, patient had reported to the RNs at the facility that she felt hot. They checked on her approximately an hour later and she was unresponsive. Upon arrival, EMS states there may have been a faint carotid pulse, and she had agonal respirations. During transport, carotid pulse was lost. CPR was started. Her agonal respirations had ceased however. [facility] Medical History Abnormal electrocardiogram Atherosclerosis of coronary artery of [place] heart without angina pectoris Chronic kidney disease (CKD) Chronic neck pain COPD (chronic obstructive pulmonary disease) Diabetes mellitus Elevated troponin (04/28/19) Essential (primary) hypertension Hyperlipidemia Left carpal tunnel syndrome Near syncope Neoplasm of skin of eyebrow Neoplasm of skin of forehead Neoplasm of skin of left lateral forehead Neoplasm of skin of nose Neoplasm of skin of right lateral forehead Nicotine dependence Osteoporosis Paresthesia of left arm Right carpal tunnel syndrome Home Medications metformin 1,000 mg PO BID 03/22/15 [History Last Taken Unknown] atorvastatin 40 mg PO QHS 02/26/17 [History Last Taken Unknown] glimepiride 4 mg tablet 2 mg PO DAILY tab 07/15/19 [History Last Taken Unknown] aspirin 81 mg tablet,delayed release 81 mg PO DAILY #90 tab 03/28/20 [Rx Last Taken 04/15/20] ferrous gluconate 240 mg PO DAILY 05/31/21 [History Last Taken Unknown] lisinopril 10 mg PO DAILY 05/31/21 [History Last Taken Unknown] omeprazole 20 mg PO DAILY 05/31/21 [History Last Taken Unknown] amlodipine 2.5 mg PO DAILY 06/11/21 [History Last Taken Unknown] cephalexin 500 mg PO Q12 #14 cap 06/11/21 [Rx Last Taken Unknown] cephalexin 500 mg PO Q12 #14 cap 06/11/21 [Rx Last Taken Unknown] colchicine 0.6 mg PO DAILY 06/11/21 [History Last Taken Unknown] metoprolol tartrate 25 mg PO BID 06/11/21 [History Last Taken Unknown] Allergy/AdvReac Type Severity Reaction Status Date / Time Penicillins [PCN] Allergy Swelling Verified 06/11/21 00:51 Family History Sister Arthritis Mother Breast cancer Cancer Surgical History History of carpal tunnel surgery History of carpal tunnel surgery of left wrist History of hysterectomy History of left heart catheterization (04/18/20) History of right knee surgery History of shoulder surgery Status post right foot surgery Social History Smoking Status: Current every day smoker tobacco type: cigarettes counseling given: provider counseling and counseling >10 minutes alcohol intake: current substance use type: does not use additional social history: DOES NOT USE ASPIRIN DOES USE IBUPROFEN ROS ROS ED ROS Narrative Unable to obtain the review of systems secondary to patient condition. EXAM Physical Exam Narrative Exam Narrative: Afebrile. Vital signs noted. GCS 3. HEENT: Normocephalic. Atraumatic. Pupils fixed and dilated. No corneal reflex. Neck soft and supple. No point tenderness or step off. Cardiovascular: Cardiopulmonary resuscitation and progress. Palpable carotid pulse with compressions. Respiratory: No spontaneous respirations Gastrointestinal: Abdomen soft Neurological: Unresponsive to painful stimuli. Skin: No rash. Cephalic cyanosis upon arrival Musculoskeletal: No pedal edema. . Const Vital Signs: 08/16/21 01:01 Temperature 95.0 F L Temperature Source Temporal Pulse Rate 112 H Respiratory Rate 0 L Blood Pressure 138/17 H Blood Pressure Mean 57 Pulse Ox 42 Oxygen Delivery Method Room Air MDM MDM MDM Narrative Medical decision making narrative: EMS states they arrived at the facility approximately 10 minutes prior to arrival to the ED. ACLS was continued. He received multiple doses of epinephrine. Blood glucose was checked and is normal in the 120s. Additionally, she was administered bicarbonate and calcium. During a pulse check, she had pulseless ventricular tachycardia. Defibrillation was attempted using 200 J. CPR was continued. For a brief time she was bradycardic in the 20s, but unobtainable blood pressure. She lost her pulse, and CPR was continued and she was redosed with epinephrine. On the next pulse check, she was in PEA. Given her extended downtime, she was pronounced by myself at 0119. Her sister was notified by the studio operations engineer in charge. Condition is . Critical Care Time Critical Care Time: Yes Critical care time (excluding procedures): 30-74 minutes (31) and Discussing w/Patient &/or Family/Paleology Professor Discharge Plan Triage Chief Complaint: CPR ED Provider: Oleg Enriquez Dx/Rx/DC Orders Prescriptions: No Action metformin 1,000 MG tablet 1,000 mg PO BID RF: 0 glimepiride 4 mg tablet 2 mg PO DAILY RF: 0 atorvastatin 40 MG tablet 40 mg PO QHS RF: 0 lisinopril 10 mg tablet 10 mg PO DAILY RF: 0 ferrous gluconate 240 mg (27 mg iron) tablet 240 mg PO DAILY RF: 0 omeprazole 20 mg capsule,delayed release(DR/EC) 20 mg PO DAILY RF: 0 amlodipine 2.5 mg Tablet 2.5 mg PO DAILY RF: 0 metoprolol tartrate 25 mg Tablet 25 mg PO BID RF: 0 colchicine 0.6 mg Capsule 0.6 mg PO DAILY RF: 0 cephalexin [cephalexin] 500 MG capsule 500 mg PO Q12 Qty: 14 RF: 0 cephalexin [cephalexin] 500 MG capsule 500 mg PO Q12 Qty: 14 RF: 0 aspirin [Adult Aspirin Regimen] 81 mg tablet,delayed release (DR/EC) 81 mg PO DAILY Qty: 90 RF: 3 Primary Care Provider: Rufino Pina
--- NOTE | 2021-08-16 03:27 | ED.RN ---
0305 [place]SP[place] [facility] [place] CARE PACKET GIVEN TO CORPORATE LEGAL ASSISTANT YULIA
[2021-08-17 14:22] LABS: Bedside Glucose 126 mg/dL (70-110)
== END 2021-08-16 03:29 ==
PROVIDERS: Emergency Provider Emergency Medicine; PCP Family Medicine
DX: I47.2 Ventricular tachycardia (principal); E11.22 Type 2 diabetes mellitus with diabetic chronic kidney disease; E78.5 Hyperlipidemia, unspecified; G89.29 Other chronic pain; F17.210 Nicotine dependence, cigarettes, uncomplicated; I12.9 Hypertensive chronic kidney disease with stage 1 through stage 4 chronic kidney disease, or unspecified chronic kidney disease; I25.10 Atherosclerotic heart disease of native coronary artery without angina pectoris; J44.9 Chronic obstructive pulmonary disease, unspecified; Z79.82 Long term (current) use of aspirin; Z79.84 Long term (current) use of oral hypoglycemic drugs; N18.9 Chronic kidney disease, unspecified
CPT/HCPCS: 31500; 82962; 92950; 96360; 96361; 99281